=== PATIENT | female | born 1985 | race American Indian/Alaskan Native ===

== ENCOUNTER 2023-03-14 18:06 | Observation (INO) | payer OTHER, SELFPAY ==
[2023-03-14] VITALS (13 sets, daily range): BP systolic 139–160; BP diastolic 91–116; PULSE 84–107; RESP 16–28; TEMP 37.3; O2SAT 97–100; BMI 31.6
--- NOTE | ~2023-03-14 | CT_ITS ---
EXAMINATION: CT brain wo con DATE: 03/14/2023 19:22 INDICATION: Left arm weakness and tingling TECHNIQUE: Computed tomography (CT) of the head was performed without intravenous contrast. Sagittal and coronal reconstructions were performed. The mA was adjusted according to patient size. Iterative reconstruction technique was employed. The dose-length product was 605.33 mGy-cm. COMPARISON: None FINDINGS: No acute intracranial hemorrhage, acute infarction or abnormal extra axial fluid collection. Ventricl es are normal and symmetric. No mass/mass effect. The orbits, paranasal sinuses and mastoid air cells are normal. IMPRESSION: 1. Normal head CT. Reviewed, dictated and finalized at location A. IMPRESSION: 1. Normal head CT.
--- NOTE | ~2023-03-14 | XR_ITS ---
EXAMINATION: XR chest 2V DATE: 03/14/2023 18:53 INDICATION: Chest pressure and left arm numbness and weakness TECHNIQUE: PA and lateral views of the chest were obtained. COMPARISON: None FINDINGS: The lungs are clear with no focal airspace opacities, pulmonary edema, pleural effusion or pneumothor ax. The cardiomediastinal silhouette is normal. Minimal thoracic spondylosis. IMPRESSION: 1. No acute cardiopulmonary disease. Reviewed, dictated and finalized at location A.
--- NOTE | ~2023-03-14 | MR_ITS ---
EXAMINATION: MR brain/brain stem wo/w con DATE: 03/15/2023 08:03 INDICATION: tia TECHNIQUE: Magnetic resonance imaging (MRI) of the brain and brainstem was performed without and with 15 mL MultiHance intravenous contrast. Sequences included sagittal and axial T1-weighted SE, axial d iffusion-weighted FS EPI ASSET, axial T2*-weighted GRE, axial T2-weighted FLAIR Propeller, and axial T2-weighted Propeller. Postcontrast axial and coronal T1-weighted SE was obtained. Apparent diffusion coefficient (ADC) maps were created. COMPARISON: CT brain 03/14/2023 FINDINGS: No abnormal restricted diffusion to suggest acute ischemic infarct. No MRI evidence of hemorrhage or extra-axial collection. No suspicious foci of susceptibility to suggest prior intraparenchymal hemorr julio. Normal white matter signal. No evidence of advanced or lobar predominant parenchymal volume los s. The basilar cisterns are patent. Flow voids are preserved. Left maxillary retention cyst/polyp. Pa ranasal sinuses are otherwise within normal limits. Globes and orbital contents are within normal stover its. IMPRESSION: Normal MR brain findings Reviewed, dictated and finalized at location K. IMPRESSION: Normal MR brain findings
--- NOTE | 2023-03-14 18:11 | ECG_ITS ---
Measurements Intervals [place] Rate: 91 P: 14 MN: 132 QRS: 5 QRSD: 85 T: 17 QT: 348 QTc: 429 Interpretive Statements SINUS RHYTHM WITH MARKED SINUS ARRHYTHMIA POSSIBLE LEFT ATRIAL ENLARGEMENT POSSIBLE LEFT VENTRICULAR HYPERTROPHY BASELINE ARTIFACT- I, III, AVL BORDERLINE ECG NO PREVIOUS ECG AVAILABLE FOR COMPARISON Electronically Signed On 03-14-2023 19:43:03 CDT by Minor Iglesias D.O.
[2023-03-14 18:31] LABS: Basophils Percent Auto 0.2 % (0.2-1.2); Eosinophils Absolute Auto 0.1 K/mm3 (0-0.3); Hematocrit 38.7 % (37.0-47.0); Hemoglobin 12.7 g/dL (12.0-15.0); Immature Granulocyte Absolute 0.06 K/mm3 (0.00-0.031); Immature Granulocyte Percent A 0.4 % (0-0.5); Lymphocytes Absolute Auto 4.19 K/mm3 (0.9-3.2); Lymphocytes Percent Auto 30.2 % (18.3-44.2); Mean Corpuscular HGB Conc 32.8 g/dl (32-36); Mean Corpuscular Volume 94.4 fl (80-100); Mean Platelet Volume 9.8 fl (7.4-10.4); Monocytes Absolute Auto 0.9 K/mm3 (0.1-0.6); Monocytes Percent Auto 6.2 % (2.6-8.5); Neutrophils Absolute Auto 8.6 K/mm3 (1.3-6.7); Platelet Count Result 291 k/mm3 (150-375); Red Cell Distribution Width 11.9 % (11.5-14.5); White Blood Count 13.9 K/mm3 (4.5-10.0)
[2023-03-14 18:45] LABS: Alanine Aminotransferase 102 U/L (6-35); Albumin Level 4.8 g/dL (3.5-5.1); Alkaline Phosphatase 55 U/L (38-126); Anion Gap 13 mmol/L (8-16); Aspartate Amino Transferase 69 U/L (14-36); Bilirubin,Total 0.9 mg/dL (0.2-1.3); Blood Urea Nitrogen 19 mg/dL (7-17); Calcium 9.3 mg/dL (8.4-10.2); Carbon Dioxide 22 mmol/L (22-30); Chloride 103 mmol/L (98-107); Estimated CRCL calculation 80 ml/min; Estimated Glomerular Filt Rate > 60; Glucose 94 mg/dL (65-110); Lipase 62 U/L (23-300); Sodium 138 mmol/L (137-145)
[2023-03-14 18:55] LABS: Troponin I < 0.012 ng/mL (0.000-0.034)
--- NOTE | 2023-03-14 19:29 | PC.NURSE ---
This RN assumed care of patient. This RN took pt report from YOU Estrella.
[2023-03-14] MEDS: ASPIRIN 81 MG CHEWABLE TABLET 324 MG PO (19:33)
--- NOTE | 2023-03-14 20:21 | ED.CHESTPAIN ---
HPI - Chest Pain General Chief Complaint: Chest Pain Stated Complaint: SOB, arm tingling Time Seen by Provider: 03/14/23 18:52 History of Present Illness HPI narrative: Patient is a 37-year-old female who presents ER with left arm tingling. She was riding in her car shortly prior to arrival holding her 's hand when she felt her arm become numb and tingly. Her arm felt heavy and she had difficulty using it. She felt like became little bit worse when she did try to move it. She then became anxious and was having racing heart with central chest pressure. No slurred speech or facial droop. No history of heart disease but has a mother with significant heart history who ended up dying. Patient is on no hormone therapy. No fevers or chills or sweats. Symptoms resolved. Related Data Allergies Allergy/AdvReac Type Severity Reaction Status Date / Time acetaminophen [From Percocet] Allergy Hives Verified 03/14/23 18:13 oxycodone [From Percocet] Allergy Hives Verified 03/14/23 18:13 Review of Systems Review of Systems: All systems reviewed & are unremarkable except as noted in HPI and below Constitutional: Constitutional: Denies chills, Denies fatigue and Denies fever(s) ENT: Denies nasal congestion and Denies sore throat Cardiovascular: Cardiovascular: Denies chest pain, Reports rapid heart rate and Denies radiating jaw, neck or arm pain Respiratory: Respiratory: Denies cough, Reports dyspnea and Denies wheezing Gastrointestinal: Gastrointestinal: Denies abdominal pain, Denies diarrhea, Denies nausea and Denies vomiting Musculoskeletal: Musculoskeletal: Denies back pain, Denies arthralgias and Denies joint swelling Neurologic: Denies syncope, Denies headache(s) and Reports focal weakness PMFSH Past Medical History Medical History (Updated 03/14/23 @ 21:52 by Gokul Marcano MD) Anxiety PTSD (post-traumatic stress disorder) Surgical History Surgical History (Updated 03/14/23 @ 20:24 by Gokul Marcano MD) No pertinent past surgical history Exam Narrative: GENERAL: Well-appearing, well-nourished, and in no acute distress. HEAD: Normocephalic, atraumatic. EYES: PERRL and EOMI. ENT: Mucous membranes moist. CHEST: Clear to auscultation. No respiratory distress. HEART: Regular rate and rhythm. Normal peripheral pulses. ABDOMEN: Soft, nontender, nondistended. EXTREMITIES: Normal range of motion. No edema. SKIN: Warm, dry, no rash. NEURO: Alert and oriented x3. NIH stroke scale of 0. No upper or lower extremity drift. Normal finger-nose and [id number] testing. No visual deficit. No hearing deficit. Sensation intact in all extremities. No dysarthria or expressive aphasia. No facial droop. PSYCH: Mildly anxious but normal thought content. Course Course Emergency Course: 2134: Patient reported recurrence of symptoms. On reevaluation no discernible neurologic deficit and NIH stroke scale still 0. 2150: Discussed case with Dr. Vee who recommends admission for observation. No recommendation for repeat imaging at this time. Patient accepted by hospitalist service. Vital Signs Vital signs: Vital Signs Temperature 99.1 F 03/14/23 18:06 Pulse Rate 93 03/14/23 18:06 Respiratory Rate 28 H 03/14/23 18:06 Blood Pressure 160/116 H 03/14/23 18:06 Pulse Oximetry 100 03/14/23 18:06 Oxygen Delivery Room Air 03/14/23 18:06 Temperature 99.1 F 03/14/23 18:06 Pulse Rate 84 03/14/23 21:06 Respiratory Rate 17 03/14/23 21:06 Blood Pressure 139/91 H 03/14/23 18:31 Pulse Oximetry 100 03/14/23 19:34 Oxygen Delivery Room Air 03/14/23 19:34 MDM - Chest Pain Lab Data 03/14/23 18:22 03/14/23 18:22 Labs: Lab Results 03/14/23 03/14/23 03/14/23 Range/Units 18:22 18:23 21:34 WBC 13.9 H (4.5-10.0) K/mm3 RBC 4.10 L (4.2-5.4) M/mm3 Hgb 12.7 (12.0-15.0) g/dL Hct 38.7 (37.0-47.0) % MCV 94.4 (80-100) fl
[2023-03-14] MEDS: LORazepam INJ (*CRX) 2 MG/ML VIAL (21:31)
--- NOTE | 2023-03-14 21:45 | PC.NURSE ---
This RN administered 0.5 mg of Ativan per EDP Dr. Grace verbal order. THis RN used closed loop communication to confirm medication route, dose, and name with EDP Dr. Marcano.
--- NOTE | 2023-03-14 21:47 | PM.IMHP ---
H&P: HPI History of Present Illness Date/Time: 03/14/23 21:47 Chief Complaint: numbness tingling left hemibody Narrative: EXAMINATION: XR chest 2V DATE: 03/14/2023 18:53 INDICATION: Chest pressure and left arm numbness and weakness TECHNIQUE: PA and lateral views of the chest were obtained. COMPARISON: None FINDINGS: The lungs are clear with no focal airspace opacities, pulmonary edema, pleural effusion or pneumothorax. The cardiomediastinal silhouette is normal. Minimal thoracic spondylosis. IMPRESSION: 1. No acute cardiopulmonary disease. EXAMINATION: CT brain wo con DATE: 03/14/2023 19:22 INDICATION: Left arm weakness and tingling TECHNIQUE: Computed tomography (CT) of the head was performed without intravenous contrast. Sagittal and coronal reconstructions were performed. The mA was adjusted according to patient size. Iterative reconstruction technique was employed. The dose-length product was 605.33 mGy-cm. COMPARISON: None FINDINGS: No acute intracranial hemorrhage, acute infarction or abnormal extra axial fluid collection. Ventricles are normal and symmetric. No mass/mass effect. The orbits, paranasal sinuses and mastoid air cells are normal. IMPRESSION: 1. Normal head CT. Rate 91 NC 132 QRSd 85 QT 348 QTc 429 --[place]-- P 14 QRS 5 T 17 SINUS RHYTHM WITH MARKED SINUS ARRHYTHMIA POSSIBLE LEFT ATRIAL ENLARGEMENT POSSIBLE LEFT VENTRICULAR HYPERTROPHY BASELINE ARTIFACT- I, III, AVL BORDERLINE ECG NO PREVIOUS ECG AVAILABLE FOR COMPARISON Electronically Signed On 03-14-2023 19:43:03 CDT by Minor Harry Review of Systems Review of Systems: sudden onset of numbness tingling left hemibody with hyperventilation Constitutional: Constitutional: Denies chills, Denies fatigue, Denies fever(s), Denies lethargy, Denies malaise, Denies poor appetite, Denies weakness and Denies weight loss Eyes: Eyes: Denies change in vision ENT: Denies dysphagia, Denies vertigo, Denies dizziness and Denies odynophagia Cardiovascular: Cardiovascular: Denies chest pain, Denies leg edema, Denies radiating jaw, neck or arm pain and Denies palpitations Respiratory: Respiratory: Denies chest congestion, Denies cough and Denies dyspnea Gastrointestinal: Gastrointestinal: Denies abdominal pain, Denies dyspepsia, Denies heartburn, Denies diarrhea, Denies nausea and Denies vomiting Genitourinary: Genitourinary: Denies dysuria Musculoskeletal: Musculoskeletal: Denies back pain, Denies myalgias, Denies arthralgias, Denies joint swelling, Denies limited range of motion and Denies muscle cramps Integumentary/Breasts: Skin/Breast: Denies rash Neurologic: Denies dizziness, Denies focal weakness, Denies Sensory deficit (Neuro) and Reports paresthesias Psychiatric: Psychiatric: Reports no additional psychiatric complaints and Reports as per HPI Endocrine: Endocrine: Denies cold intolerance, Denies fatigue, Denies flushing, Denies heat intolerance, Denies polyphagia, Denies polydipsia and Denies palpitations Hematologic/Lymphatic: Hematologic/Lymphatic: Reports no additional hematologic/lymphatic complaints and Reports as per HPI Allergic/Immunologic: Allergic/Immunologic: Reports no additional allergic/immunologic complaints and Reports as per HPI PMFSH Past Medical History Medical History (Updated 03/15/23 @ 03:31 by Gilberto Olson MD) Anxiety PTSD (post-traumatic stress disorder) Surgical History Surgical History (Updated 03/14/23 @ 20:24 by Gokul Marcano MD) No pertinent past surgical history Family History Family History Mother Acute myocardial infarction Congestive heart failure Grandparent Acute myocardial infarction Cerebrovascular accident Diabetes mellitus Hypertension Sibling Hypertension Social History Social History Smoking status: Former smoker Alcohol intake: never Substance use: never Lack of Transportation: No Lack of Food: Never True Current Housing: I Have Hous
[2023-03-14 22:01] LABS: Troponin I < 0.012 ng/mL (0.000-0.034)
--- NOTE | 2023-03-14 22:48 | ADMGEN ---
This patient, Angy Orourke, was admitted to Medical Room 346-. Patient/family oriented to hospital policies and general routines including ID bracelet, bed and alarms, visiting hours, pain management, procedures, bathroom and other care routines, personal items, smoking policy, room service/diet, and visiting hours. Information on how to activate the Rapid Response Team has been discussed. Patient/Family are encouraged to report perceived risks to care and to ask questions if they do not understand what they are told or what they should do.
[2023-03-15] VITALS (9 sets, daily range): BP systolic 103–129; BP diastolic 55–82; PULSE 68–88; RESP 16–18; TEMP 36.4–36.8; O2SAT 98–100
[2023-03-15 01:11] LABS: Troponin I < 0.012 ng/mL (0.000-0.034)
--- NOTE | 2023-03-15 07:46 | PC.NURSE ---
Pt to MRI @ [id number] without tele
--- NOTE | 2023-03-15 12:47 | WPDNEURCNPN ---
Assessment and Plan Assessment and plan (1) Hypertension: Code(s): I10 - Essential (primary) hypertension Status: Acute (2) TIA (transient ischemic attack): Code(s): G45.9 - Transient cerebral ischemic attack, unspecified Status: Acute (3) Anxiety: Code(s): F41.9 - Anxiety disorder, unspecified Status: Acute Plan TIA MRI thus brain is awaited she will benefit from the Doppler study of the carotid and echocardiogram in the long run Consult date: 03/15/23 HPI: Angy Orourke is a 37 year old female 37 years old right-handed female has been admitted to [facility] through the emergency room for the complaints of left upper extremity tingling sensation while riding in her car shortly prior to the arrival subsequently the left arm became numb and felt heavy in addition became difficult to use he was extremely anxious with tachycardia and chest pressure-like sensation but no other neurological signs patient is reportedly allergic to acetaminophen and oxycodone , she does have ongoing history of anxiety with posttraumatic stress disorder and initial exam i in ER was nonfocal he was mainly admitted to the hospital for observation after the telephone neurology consultation. Routine lab was normal, CT scan of the head was negative, EKG was negative with no evidence of atrial fibrillation, question was raised regarding the possibility IA and she was admitted for observation, MRI is pending, she is a former smoker never substance user and never alcohol intake medications at the time of admission include atorvastatin 20 mg at night and lisinopril 20 mg at night. [facility] Past Medical History Medical History Anxiety PTSD (post-traumatic stress disorder) Surgical History Surgical History No pertinent past surgical history Family History Family History Mother Acute myocardial infarction Congestive heart failure Grandparent Acute myocardial infarction Cerebrovascular accident Diabetes mellitus Hypertension Sibling Hypertension Social History Social History Smoking status: Former smoker Alcohol intake: never Substance use: never Lack of Transportation: No Lack of Food: Never True Current Housing: I Have Housing Concerned About Future Housing: No Difficulty Paying Gas/Electric Bills: No Difficulty Paying for Meds: No Currently Unemployed: No Education: Associate Degree Difficulty w/ Childcare or Family Care: No Spiritual care concerns: No Meds Home Medications and Allergies Home Medications Medication Instructions Recorded Confirmed Type atorvastatin 20 mg tablet 20 mg PO 03/14/23 03/14/23 History lisinopril 20 mg tablet 20 mg PO 03/14/23 03/14/23 History Allergies Allergy/AdvReac Type Severity Reaction Status Date / Time oxycodone [From Percocet] Allergy Hives Verified 03/14/23 18:13 Vital Signs Vital Signs - 24 hr 03/14/23 18:06 03/14/23 19:34 03/14/23 18:10 Temperature 37.3 C Pulse Rate 93 94 Respiratory Rate 28 H 17 Blood Pressure 160/116 H Pulse Oximetry 100 100 100 Oxygen Delivery Room Air Room Air 03/14/23 18:11 03/14/23 18:21 03/14/23 18:30 Temperature Pulse Rate 107 H 96 94 Respiratory Rate 19 20 17 Blood Pressure 160/116 H Pulse Oximetry 100 100 97 Oxygen Delivery 03/14/23 18:31 03/14/23 18:47 03/14/23 19:23 Temperature Pulse Rate 95 96 89 Respiratory Rate 19 19 17 Blood Pressure 139/91 H Pulse Oximetry 98 98 99 Oxygen Delivery 03/14/23 19:30 03/14/23 20:24 03/14/23 20:34 Temperature Pulse Rate 92 90 88 Respiratory Rate 19 18 16 Blood Pressure Pulse Oximetry 97 Oxygen Delivery 03/14/23 21:06 03/14/23 23:00 03/15/23 00:22 Temperature 36.6 C Pulse Rate 8
--- NOTE | 2023-03-15 12:49 | PM.IMPN ---
Progress Note: A&P Assessment and Plan (1) TIA (transient ischemic attack): Code(s): G45.9 - Transient cerebral ischemic attack, unspecified Status: Acute Assessment and Plan: MRI negative, echo and Dopplers pending (2) Hypertension: Code(s): I10 - Essential (primary) hypertension Status: Acute Assessment and Plan: Blood pressures reviewed 03/15 (3) Anxiety: Code(s): F41.9 - Anxiety disorder, unspecified Status: Acute Assessment and Plan: follow-up in outpatient setting Plan DVT prophylaxis with SCDs GI prophylaxis not indicated Code status full code Subjective Date/time seen: 03/15/23 12:49 Interval history: 37-year-old female presenting with numbness and tingling of one side of her body being worked up for possible TIA. No overnight events noted. No chest pain or shortness of breath. No nausea, vomiting or diarrhea. No fevers or chills. Review of Systems Review of Systems: 12 point review of systems was assessed and was negative except as noted in the HPI Exam Narrative: General: No acute distress, alert and oriented per baseline HEENT: Atraumatic, normocephalic, mucous membranes moist CV: Regular rate and rhythm, S1, S2 Lungs: Clear to auscultation bilaterally, no rales or crackles noted, no wheezes, good air entry Abdomen: Soft, nontender, nondistended Extremities: Normal to inspection Skin: No rashes noted, no lesions or wounds seen Psych: Euthymic, normal affect Objective Data Vital Signs Vital Signs: Vital Signs - 24 hr 03/14/23 18:06 03/14/23 19:34 03/14/23 18:10 Temperature 99.1 F Pulse Rate 93 94 Respiratory Rate 28 H 17 Blood Pressure 160/116 H Pulse Oximetry 100 100 100 Oxygen Delivery Room Air Room Air 03/14/23 18:11 03/14/23 18:21 03/14/23 18:30 Temperature Pulse Rate 107 H 96 94 Respiratory Rate 19 20 17 Blood Pressure 160/116 H Pulse Oximetry 100 100 97 Oxygen Delivery 03/14/23 18:31 03/14/23 18:47 03/14/23 19:23 Temperature Pulse Rate 95 96 89 Respiratory Rate 19 19 17 Blood Pressure 139/91 H Pulse Oximetry 98 98 99 Oxygen Delivery 03/14/23 19:30 03/14/23 20:24 03/14/23 20:34 Temperature Pulse Rate 92 90 88 Respiratory Rate 19 18 16 Blood Pressure Pulse Oximetry 97 Oxygen Delivery 03/14/23 21:06 03/14/23 23:00 03/15/23 00:22 Temperature 97.9 F Pulse Rate 84 78 Respiratory Rate 17 18 Blood Pressure 108/55 L Pulse Oximetry 98 Oxygen Delivery Room Air 03/15/23 00:00 03/15/23 04:00 03/15/23 05:12 Temperature 98.3 F Pulse Rate 88 73 76 Respiratory Rate 16 Blood Pressure 103/73 Pulse Oximetry 100 Oxygen Delivery Intake/Output Intake/Output: Intake & Output 03/12/23 03/13/23 03/14/23 03/15/23 23:59 23:59 23:59 23:59 Intake Total 590 Balance 590 Meds/Results Medications: Active Medications Generic Name Dose Route Start Last Admin Trade Name Freq PRN Reason Stop Dose Admin Atorvastatin Calcium 20 mg 03/15/23 03:35 03/15/23 04:20 Atorvastatin 20 Mg Tablet PO Not Given HS DENG Lisinopril 20 mg 03/15/23 03:35 03/15/23 04:20 Lisinopril 20 Mg Tablet PO Not Given HS DENG Ondansetron HCl 4 mg 03/14/23 21:48 Ondansetron Inj 4 Mg/2 Ml Vial IV PUSH Q4H PRN Nausea Radiology Results: ITS Impressions Chest X-Ray 03/14/23 19:08 IMPRESSION: 1. No acute cardiopulmonary disease. Head CT 03/14/23 19:24 IMPRESSION: 1. Normal head CT. Labs Labs: Laboratory Results - last 24 hr 03/14/23 03/14/23 03/14/23 18:22 18:23 21:34 WBC 13.9 H RBC 4.10 L Hgb 12.7 Hct 38.7 MCV 94.4 MCH 31.0 MCHC 32.8 RDW 11.9 Plt Count 291 MPV 9.8 Immature Gran % (Auto) 0.4 Neut % (Auto) 62.0 Lymph % (Auto) 30.2 Yates % (Auto) 6.2 Eos % (Auto) 1.0 Baso % (Auto) 0.2 Lymph # (Auto) 4.19 H
[2023-03-15] MEDS: lisinopriL 20 MG TABLET PO (21:23)
[2023-03-15] MEDS: ATORVASTATIN 20 MG TABLET PO (21:23)
[2023-03-16] VITALS: PULSE 72
[2023-03-16 04:00] VITALS: PULSE 68
[2023-03-16 04:09] VITALS: BP 109/67; PULSE 73; RESP 16; TEMP 36.1; O2SAT 99
[2023-03-16 08:42] VITALS: O2SAT 98
--- NOTE | 2023-03-16 09:47 | PM.IMPN ---
Progress Note: A&P Assessment and Plan (1) TIA (transient ischemic attack): Code(s): G45.9 - Transient cerebral ischemic attack, unspecified Status: Acute Assessment and Plan: MRI negative, echo and Dopplers pending, neuro consult recs after results (2) Hypertension: Code(s): I10 - Essential (primary) hypertension Status: Acute Assessment and Plan: Blood pressures reviewed 03/16 (3) Anxiety: Code(s): F41.9 - Anxiety disorder, unspecified Status: Acute Assessment and Plan: follow-up in outpatient setting Plan DVT prophylaxis with SCDs GI prophylaxis not indicated Code status full code Subjective Date/time seen: 03/16/23 09:47 Interval history: 37-year-old female presenting with numbness and tingling of one side of her body being worked up for possible TIA. No overnight events noted. No chest pain or shortness of breath. No nausea, vomiting or diarrhea. No fevers or chills. Review of Systems Review of Systems: 12 point review of systems was assessed and was negative except as noted in the HPI Exam Narrative: General: No acute distress, alert and oriented per baseline HEENT: Atraumatic, normocephalic, mucous membranes moist CV: Regular rate and rhythm, S1, S2 Lungs: Clear to auscultation bilaterally, no rales or crackles noted, no wheezes, good air entry Abdomen: Soft, nontender, nondistended Extremities: Normal to inspection Skin: No rashes noted, no lesions or wounds seen Psych: Euthymic, normal affect Objective Data Vital Signs Vital Signs: Vital Signs - 24 hr 03/15/23 14:00 03/15/23 12:00 03/15/23 16:00 Temperature 98.1 F Pulse Rate 72 75 82 Respiratory Rate 16 Blood Pressure 124/81 Pulse Oximetry 100 Oxygen Delivery 03/15/23 21:16 03/15/23 20:00 03/16/23 00:00 Temperature 97.6 F Pulse Rate 84 68 72 Respiratory Rate 16 Blood Pressure 129/82 Pulse Oximetry 100 Oxygen Delivery 03/16/23 04:09 03/16/23 04:00 03/16/23 08:42 Temperature 97 F L Pulse Rate 73 68 Respiratory Rate 16 Blood Pressure 109/67 Pulse Oximetry 99 98 Oxygen Delivery Room Air Intake/Output Intake/Output: Intake & Output 0903/14/23 03/15/23 03/16/23 23:59 23:59 23:59 23:59 Intake Total 1570 150 Balance 1570 150 Meds/Results Medications: Active Medications Generic Name Dose Route Start Last Admin Trade Name Freq PRN Reason Stop Dose Admin Atorvastatin Calcium 20 mg 03/15/23 03:35 03/15/23 21:23 Atorvastatin 20 Mg Tablet PO 20 mg HS DENG Administration Lisinopril 20 mg 03/15/23 03:35 03/15/23 21:23 Lisinopril 20 Mg Tablet PO 20 mg HS DENG Administration Ondansetron HCl 4 mg 03/14/23 21:48 Ondansetron Inj 4 Mg/2 Ml Vial IV PUSH Q4H PRN Nausea Perflutren Lipid Microsphere 0 ml 03/15/23 16:45 Perflutren Lipid Microspheres 1.5 Ml Vial Diluted To 10 Ml Total Volume IV PUSH 03/18/23 16:45 ONCE PRN adequate visualization Protocol Radiology Results: ITS Impressions Chest X-Ray 03/14/23 19:08 IMPRESSION: 1. No acute cardiopulmonary disease. Head CT 03/14/23 19:24 IMPRESSION: 1. Normal head CT. Brain MRI 03/15/23 14:35 IMPRESSION: Normal MR brain findings
--- NOTE | 2023-03-16 11:32 | P.DS_ITS ---
DS: Admitting Diagnosis Discharge Date 03/16/2023 Admitting Diagnosis Right-sided numbness and tingling DS: Summary Hospital Course Hospital Course: 37-year-old female presenting with numbness and tingling of one side of her body being worked up for possible TIA. MRI completely normal. Carotid ultrasound results below. IMPRESSION: 1. Less than 50% stenosis in the right internal carotid artery by sonographic criteria. 2. Less than 50% stenosis in the left internal carotid artery by sonographic criteria. All workup negative. All symptoms resolved. neurology recommended discharge with outpatient follow-up. Please see above and med rec for details. Time Spent with Patient Time attestation: Total time spent providing and/or coordinating discharge services: Discharge Plan Discharge Attending physician on discharge: Hansa Markham Consulting providers: Willem Anna; Mauri Willis; Minor Iglesias; Jorge Neves; Jorge Crow Discharging Clinician: Hansa Markham Patient Disposition: Home, Self-Care Activity: as tolerated Diet: as tolerated Discharge Instructions: Follow up with echo and bubble study, carotid US and neurology. Patient Instructions: Antibiotic Form, Transient Ischemic Attack (GEN) Stand Alone Forms: General Discharge Information Follow-up/Referrals: Willem Anna MD [Physician] - Jody Vee MD [Physician] - Discharge Medications: New aspirin 81 mg capsule 81 mg PO DAILY 30 Days Qty: 30 0RF Continued lisinopril 20 mg Tablet 20 mg PO HS No Action Zylet 0.3-0.5 % drops,suspension EACH EYE fluoxetine 10 mg capsule 10 mg PO DAILY Qty: 30 0RF atorvastatin 40 mg tablet 40 mg PO QHS Qty: 90 3RF Date of admission: 03/14/23 21:48 Primary Care Provider: PHYSICIAN,FPGA DESIGN ENGINEER Admitting Provider: Gilberto Olson V. Attending physician on admission: Hansa Markham Condition: Stable
[2023-03-16 12:00] VITALS: PULSE 76
--- NOTE | 2023-03-16 13:38 | PC.NURSE ---
Construction Teacher spoke with Dr Willis by phone, ok to discharge patient and follow outpatient.
== END 2023-03-16 13:30 | disposition home or self-care (01) ==
LOC: ANHED 21:52 → ANH3MED 22:19
PROVIDERS: Admitting Provider Internal Medicine; Emergency Provider Emergency Medicine; Visit Provider Student in an Organized Health Care Education/Training Program
DX: G45.9 Transient cerebral ischemic attack, unspecified (principal); I10 Essential (primary) hypertension; F41.9 Anxiety disorder, unspecified; F43.10 Post-traumatic stress disorder, unspecified; R07.89 Other chest pain; Z87.891 Personal history of nicotine dependence; Z82.49 Family history of ischemic heart disease and other diseases of the circulatory system; Z79.899 Other long term (current) drug therapy
CPT/HCPCS: 36415; 70450; 70553; 71046; 80053; 83690; 84484; 85025; 85610; 85730; 93005; 99285; A9270; A9577; G0378; J2060

== ENCOUNTER → 2023-03-26 09:37 | Outpatient (CLI) | payer OTHER, SELFPAY ==
--- NOTE | ~2023-03-26 | US_ITS ---
EXAMINATION: US carotid duplex BI DATE: 03/26/2023 10:22 INDICATION: TIA TECHNIQUE: Grayscale, color Doppler, and pulsed Doppler images of the cervical carotid arteries were obtained. The degree of vessel stenosis is placed in one of the following categories: normal, <50%, 5 0-69%, >=70% but less than near-occlusion, near-occlusion, or total occlusion. Note that percent sten osis relative to normal distal artery lumen diameter is indirectly measured from velocity measurement s as described by Devyn, et al. Radiology 2003; 229:340-346. Notes: Normal: Peak systolic velocity <125 centimeters/sec and no plaque <50%. Peak systolic velocity <125 ( EDV <40; ICA/CCA PSV ratio <2.0; used these factors only a tandem lesions or low cardiac output or co ntralateral disease) 50-69 %: PSV 125-230 (EDV 40-100; ratio 2-4) >= 70% but less than near occlusion: PSV greater than 230 (EDV > 100; ratio> 4.0) Near Occlusion: PSV that is variable; markedly narrowed lumen Occlusion: Absent flow on color/spectral Doppler and no lumen on flynn scale. COMPARISON: None. FINDINGS: RIGHT: The right common carotid artery (CCA) peak systolic velocity (PSV) is 100 cm/s. The right internal ca rotid artery (ICA) PSV is 124 cm/s. The right ICA end-diastolic velocity (EDV) is 45 cm/s. The right ICA/CCA PSV ratio is 1.4. The external carotid artery (ECA) PSV is 82 cm/s. There is antegrade flow i n the right vertebral artery. LEFT: The left CCA PSV is 108 cm/s. The left ICA PSV is 110 cm/s. The left ICA EDV is 37 cm/s. The left ICA /CCA PSV ratio is 1.6. The ECA PSV is 68 cm/s. There is antegrade flow in the left vertebral artery. IMPRESSION: 1. Less than 50% stenosis in the right internal carotid artery by sonographic criteria. 2. Less than 50% stenosis in the left internal carotid artery by sonographic criteria. Reviewed, dictated and finalized at location A. IMPRESSION: 1. Less than 50% stenosis in the right internal carotid artery by sonographic anjali guillory. 2. Less than 50% stenosis in the left internal carotid artery by sonographic amador nash.
--- NOTE | ~2023-03-26 | US_ITS ---
Abdominal Sonogram: Real-time sonographic imaging of the abdomen was performed. Clinical History: Abnormal serum enzyme levels Findings: The liver appears normal with no evidence of mass lesion or bile duct dilatation. Main por ruben vein demonstrates normal direction of flow. The spleen is normal in size without evidence of foca l lesion. The gallbladder is well distended, without visible gallstone. Small gallbladder wall polyp s are present, largest measuring 5 mm. The common bile duct measures 4 mm. The visualized pancreas, aorta, and IVC are unremarkable. The right kidney measures 8.8 cm in length and the left kidney jovita ures 10.3 cm. There is no hydronephrosis or renal calculus. Impression: Small gallbladder wall polyps, as detailed above. Reviewed, dictated and finalized at location M. Impression: Small gallbladder wall polyps, as detailed above.
== END ==
PROVIDERS: PCP Nurse Practitioner Family; Visit Provider Nurse Practitioner Family
DX: R74.8 Abnormal levels of other serum enzymes (principal); E78.5 Hyperlipidemia, unspecified; G45.9 Transient cerebral ischemic attack, unspecified
CPT/HCPCS: 76700; 93880

== ENCOUNTER 2023-04-29 15:32 | Outpatient (CLI) | payer OTHER, SELFPAY ==
--- NOTE | 2023-04-29 15:40 | ECHO_ITS ---
Patient Info Name: Angy Orourke Age: 37 years : 1985 Gender: Female Ht: 62 in Wt: 173 lbs BSA: 1.88 m2 HR: 96 bpm BP: 123 / 96 mmHg Heart Rhythm: Sinus Rhythm Technical Quality: Good Exam Date: 04/29/2023 4:23 PM Exam Location: [facility] Card Pulmonary Patient Status: Outpatient Admit Date: 04/29/2023 Staff Ordering Physician: Mary Telles Supervisor Nuclear Medicine: Elizabeth Shah RDCS Attending Provider: Mary Telles Referring Physician: Elfego ARANGO; Exam Type: CA echo doppler color flow Study Info Indications - Hyperlipidema, unsp Complete two-dimensional, color flow and Doppler transthoracic echocardiogram is performed. Summary 1. Complete two-dimensional, color flow and Doppler transthoracic echocardiogram is performed. 2. Normal left ventricular size with borderline concentric hypertrophy. Good systolic function of all segments with ejection fraction 63%. Borderline criteria for diastolic dysfunction is present. 3. No significant valve disease. 4. No pulmonary hypertension, estimated pulmonary arterial systolic pressure is 26 mmHg. 5. Normal sinus rhythm. Left Ventricle Left ventricular chamber dimension is normal. Left ventricular systolic function is normal, estimated at Empty. There is mildly increased left ventricular wall thickness. Left ventricular septal wall motion is normal. The left ventricular diastolic function is abnormal. Right Ventricle Right ventricular chamber dimension is normal. Right ventricular systolic function is normal. Left Atria Left atrial chamber dimension is normal. Right Atria Right atrial chamber dimension is normal. Aortic Valve The aortic valve is trileaflet. There is no aortic valve sclerosis. There is no aortic valve stenosis. There is no aortic valve regurgitation. Pulmonic Valve The pulmonic valve is normal. There is no pulmonic valve stenosis. There is no pulmonic regurgitation. Mitral Valve The mitral valve has normal leaflets. There is no mitral valve stenosis. There is no mitral valve regurgitation. Tricuspid Valve The tricuspid valve leaflets are normal. There is no significant tricuspid valve stenosis. There is trace tricuspid valve regurgitation. No pulmonary hypertension, estimated pulmonary arterial systolic pressure is 26 mmHg. Pericardium/Pleural The pericardium appears normal. There is no pericardial effusion. Inferior Vena Cava Normal inferior vena cava with >50% collapse upon inspiration consistent with Empty right atrial pressure, 10 mmHg. Aorta The aortic root size at the sinus of Valsalva is normal. The prox ascending aorta size is normal. Left Ventricular Outflow Tract Name Value Normal LVOT 2D LVOT Diameter 1.9 cm LVOT Doppler LVOT Peak Gradient 2 mmHg LVOT Mean Gradient 2 mmHg LVOT VTI 16 cm LVOT VTI/AV VTI Ratio 0.7 LVOT Stroke Volume 47 ml LVOT CO 3.6 l/min LVOT CI 1.9 l/min/m2 Pulmonic Valve
== END 2023-04-29 15:33 | disposition home or self-care (01) ==
LOC: ANHCARD 15:33
PROVIDERS: PCP Nurse Practitioner Family; Visit Provider Nurse Practitioner Family
DX: E78.5 Hyperlipidemia, unspecified (principal); G45.9 Transient cerebral ischemic attack, unspecified; I10 Essential (primary) hypertension
CPT/HCPCS: 93306

== ENCOUNTER 2023-09-22 14:46 | Outpatient (CLI) | payer OTHER, SELFPAY ==
[2023-09-22 20:47] LABS: Alanine Aminotransferase 185 U/L (6-35); Alkaline Phosphatase 52 U/L (38-126); Amylase 103 U/L (30-110); Aspartate Amino Transferase 108 U/L (14-36); Bilirubin,Total 0.6 mg/dL (0.2-1.3); Blood Urea Nitrogen 22 mg/dL (7-17); Calcium 9.9 mg/dL (8.4-10.2); Carbon Dioxide 29 mmol/L (22-30); Chloride 102 mmol/L (98-107); Estimated Glomerular Filt Rate > 60; Glucose 102 mg/dL (65-110); Lipase 77 U/L (23-300)
[2023-09-22 23:17] LABS: Anion Gap 6 mmol/L (8-16); Sodium 137 mmol/L (137-145)
[2023-09-23 02:00] LABS: Albumin Level 4.4 g/dL (3.5-5.1)
== END 2023-09-22 14:47 | disposition home or self-care (01) ==
LOC: ANHGOSHLAB 14:47
PROVIDERS: PCP Nurse Practitioner Family; Visit Provider Nurse Practitioner Family
DX: R10.9 Unspecified abdominal pain (principal)
CPT/HCPCS: 36415; 80053; 82150; 83690

== ENCOUNTER 2023-10-04 07:32 | Outpatient (CLI) | payer OTHER, SELFPAY ==
--- NOTE | ~2023-10-04 | US_ITS ---
EXAMINATION: US abdomen complete DATE: 10/04/2023 08:56 INDICATION: Unspecified abdominal pain. TECHNIQUE: Multiple grayscale and Doppler ultrasound images of the abdomen were obtained. COMPARISON: Ultrasound 03/26/2023 FINDINGS: The visualized portions of the head, body, and tail of the pancreas are normal. The liver i s normal without focal lesion. There is normal flow in main portal vein. The gallbladder is normal in size. No gallstones or gallbladder wall thickening. There is no sonographic Orozco sign. The common duct is normal and measures 3 mm. Abdominal aorta is normal in caliber. Inferior vena cava is normal. The spleen is normal in size. The kidneys are normal in size. IMPRESSION: 1. Normal complete abdomen ultrasound. Reviewed, dictated and finalized at location A.
== END 2023-10-04 07:33 | disposition home or self-care (01) ==
PROVIDERS: PCP Nurse Practitioner Family; Visit Provider Nurse Practitioner Family
DX: R10.9 Unspecified abdominal pain (principal)
CPT/HCPCS: 76700

== ENCOUNTER 2024-01-12 15:33 | Outpatient (CLI) | payer OTHER, SELFPAY ==
--- NOTE | ~2024-01-12 | XR_ITS ---
EXAMINATION: XR foot RT min 3V DATE: 01/12/2024 15:44 INDICATION: Right foot pain. TECHNIQUE: 4 views of right foot were obtained. COMPARISON: None. FINDINGS: There is moderate hallux valgus. No fracture. There is mild osteoarthritis of first metatar sophalangeal joint. IMPRESSION: 1. Moderate hallux valgus. 2. Mild osteoarthritis of first metatarsophalangeal joint. Reviewed, dictated and finalized at location E.
== END 2024-01-12 15:34 ==
LOC: MICIMG 15:34
PROVIDERS: PCP Nurse Practitioner Family; Visit Provider Nurse Practitioner Family
DX: M19.071 Primary osteoarthritis, right ankle and foot (principal); M20.11 Hallux valgus (acquired), right foot
CPT/HCPCS: 73630

== ENCOUNTER 2024-05-05 09:22 | Outpatient (CLI) | payer OTHER, SELFPAY ==
[2024-05-05 12:49] LABS: Basophils Percent Auto 0.5 % (0.2-1.2); Eosinophils Absolute Auto 0.4 K/mm3 (0-0.3); Eosinophils Percent Auto 4.4 % (0-4.4); Hematocrit 41.9 % (37.0-47.0); Hemoglobin 13.4 g/dL (12.0-15.0); Immature Granulocyte Absolute 0.04 K/mm3 (0.00-0.031); Immature Granulocyte Percent A 0.5 % (0-0.5); Lymphocytes Absolute Auto 3.26 K/mm3 (0.9-3.2); Mean Corpuscular Hemoglobin 29.7 pg (26-34); Mean Corpuscular Volume 92.9 fl (80-100); Mean Platelet Volume 9.8 fl (7.4-10.4); Monocytes Absolute Auto 0.6 K/mm3 (0.1-0.6); Monocytes Percent Auto 6.9 % (2.6-8.5); Neutrophils Absolute Auto 3.7 K/mm3 (1.3-6.7); Neutrophils Percent Auto 46.7 % (45.5-73.1); Platelet Count Result 308 k/mm3 (150-375); Red Blood Count 4.51 M/mm3 (4.2-5.4); Red Cell Distribution Width 11.5 % (11.5-14.5)
[2024-05-05 13:17] LABS: Vitamin D 25 Hydroxy 36.4 ng/mL
[2024-05-05 13:31] LABS: Thyroid Stimulating Hormone Reflex 0.826 uIU/mL (0.465-4.68)
[2024-05-05 13:43] LABS: LDL Cholesterol Direct 206 mg/dL
[2024-05-05 13:51] LABS: Alanine Aminotransferase 91 U/L (6-35); Albumin Level 4.5 g/dL (3.5-5.1); Alkaline Phosphatase 83 U/L (38-126); Anion Gap 8 mmol/L (4-12); Aspartate Amino Transferase 49 U/L (14-36); Bilirubin,Total 0.6 mg/dL (0.2-1.3); Blood Urea Nitrogen 17 mg/dL (7-17); Calcium 9.4 mg/dL (8.4-10.2); Carbon Dioxide 28 mmol/L (22-30); Chloride 100 mmol/L (98-107); Estimated Glomerular Filt Rate > 60; Glucose 105 mg/dL (65-110); HDL Direct 58 mg/dL; Potassium 4.2 mmol/L (3.4-5.0); Sodium 136 mmol/L (137-145); Triglycerides 284 mg/dL (<150)
[2024-05-05 13:55] LABS: Cholesterol 382 mg/dL (0-200)
== END 2024-05-05 09:23 | disposition home or self-care (01) ==
LOC: ANHGOSHLAB 09:24
PROVIDERS: PCP Family Medicine; Visit Provider Nurse Practitioner Family
DX: E66.9 Obesity, unspecified (principal); E78.5 Hyperlipidemia, unspecified; G45.9 Transient cerebral ischemic attack, unspecified; I10 Essential (primary) hypertension; K21.9 Gastro-esophageal reflux disease without esophagitis; E55.9 Vitamin D deficiency, unspecified
CPT/HCPCS: 36415; 80053; 80061; 82306; 84443; 85025

== ENCOUNTER 2024-08-12 00:51 | Day surgery (SDC) | payer OTHER, SELFPAY ==
[2024-07-29 14:50] VITALS: BMI 31.6
--- OUTSIDE RECORDS SUMMARY | 2024-08-12 00:53 | XMS_ITS | Referral Summary ---
Author Organization [facility] [address] [facility] [address] Address [address] [place] [address] Care Team Providers Care Quarantine Officer Name Role Phone Mary Telles NP Primary Care Provider [phone] Crala Nayak DPM Unavailable [phone] Encounters Date Type Department Care Team Description 08/01/2024 6:31 PM SPEEDBOAT DRIVER - 08/01/2024 7:49 PM RUST Emergency [facility] Emergency Department [address] [place], [place] [id number] Influenza A (Primary Dx) Discharge Disposition: Discharge to home or self care from Last 3 Months Allergies Active Allergy Reactions Criticality Noted Date Comments Oxycodone Rash Medium 03/24/2024 Medications lisinopriL (PRINIVIL,ZESTRIL) 20 mg tablet Take 1 tablet (20 mg total) by mouth nightly at bedtime. 4 Active gabapentin (NEURONTIN) 100 mg capsule Take 1 capsule (100 mg total) by mouth nightly 4 Active multivit-min/iron fum/folic ac (ONE-A-DAY WOMEN'S COMPLETE ORAL) Take 1 each by mouth daily Active omega-3 fatty acids-fish oil 300-1,000 mg capsule Take 1 capsule (1 g total) by mouth daily Active MAGNESIUM GLYCINATE ORAL Take 400 mg by mouth daily Active protein powder Take by mouth daily Active creatinine, bulk, 100 % powder Active amino acids capsule Take by mouth Active HYDROcodone-acetami nophen (NORCO) 5-325 mg per tabletIndications:P ain Take 1 tablet by mouth every 4 (four) hours as needed for pain 40 tablet 4 Active ondansetron ODT (ZOFRAN-ODT) 8 mg disintegrating tablet Take 1 tablet (8 mg total) by mouth every 8 (eight) hours as needed for nausea or vomiting 20 tablet 4 Active Active Problems Problem Noted Date Diagnosed Date Bunion of great toe of right foot 03/23/2024 Acquired hallux valgus of right foot 03/23/2024 Social History Tobacco Use Types Packs/Day Years Used Date Smoking Tobacco: Former Cigarettes Smokeless Tobacco: Never Tobacco Cessation:Counseling Given: Not Answered AUDIT-C Answer Date Recorded Q1: How often do you have a drink containing alc ohol? 2-4 times a month 03/24/2024 Q2: How many drinks containi ng alcohol do you have on a typical day when you are drinking? 1 or 2 03/24/2024 Frequency of Binge Drinking Not on file 03/07 Personal Safety Answer Date Recorded Have you ever been in or are you currently in a harmful physical or emotional relationship or is someone making you feel afraid or unsafe? Denies 08/01/2024 Comments No Sex and Gender Information Value Date Recorded Sex Assigned at Not on file Legal Sex Female 6:51 AM CDT Gender Identity Not on file Sexual Orientation Not on file Last Filed Vital Signs Vital Sign Reading Time Taken Comments Blood Pressure 134/87 08/01/2024 7:43 PM SPEEDBOAT DRIVER Pulse 102 08/01/2024 7:43 PM SPEEDBOAT DRIVER Temperature 38.8 C (101.9 F) 08/01/2024 7:43 PM SPEEDBOAT DRIVER Respiratory Rate 20 08/01/2024 7:43 PM SPEEDBOAT DRIVER Oxygen Saturation 97% 08/01/2024 7:43 PM SPEEDBOAT DRIVER Inhaled Oxygen Concentration - - Weight 77.1 kg (170 lb) 08/01/2024 2:57 PM SPEEDBOAT DRIVER Height 157.5 cm (5' 2 ) 08/01/2024 2:57 PM SPEEDBOAT DRIVER Body Mass Index 31.09 08/01/2024 2:57 PM SPEEDBOAT DRIVER Plan of Treatment Not on file Medical Devices Implanted Type Area Electric Motor Repairing Supervisor Device Identifier Shelf Expiration Date Model / Serial / Lot Inktank [facility] Staple Bone Lapiplasty Speedplate Strl Rapid Compress Sk51 - [id number] Implanted:Qty: 1 on 04/02/2024 by Carla Nayak DPM at [facility] Right: First Toe [employer] 10/28/2028 SK51 / / [id number] [employer] Staple Bone Lapiplasty Speedplate Strl Rapid Compress Sk53 - Sn/A - [id number] Implanted:Qty: 1 on 04/02/2024 by Carla Nayak DPM at [facility] Right: First Toe [employer] 08/18/2028 SK53 / N/A / [id number] [employer] Max Vpc 2.5mm 16mm Cannulated Compression Headless Full Thread [id number] - [id number] Implanted:Qty: 1 on 04/02/2024 by Carla Nayak DPM at [facility] Right: First Toe [employer] [id number] / / Procedures Procedure Name Priority Date/Time Associated Diagnosis Comments XR CHEST PA LATERAL 2 VIEWS ED 08/01/2024 4:03 PM SPEEDBOAT DRIVER EGFR STAT 08/01/2024 3:18 PM SPEEDBOAT DRIVER DIFFERENTIAL AUTO STAT 08/01/2024 3:1 8 PM SPEEDBOAT DRIVER ANTIBODY SCREEN STAT 08/01/2024 3:18 PM SPEEDBOAT DRIVER ABO/RH STAT 08/01/2024 3:18 PM SPEEDBOAT DRIVER TYPE AND SCREEN STAT 08/01/2024 3:18 PM SPEEDBOAT DRIVER SEPSIS LACTATE WITH REFLEX Routine 08/01/2024 3:18 PM SPEEDBOAT DRIVER COMPREHENSIVE METABOLIC PANEL STAT 08/01/2024 3:18 PM SPEEDBOAT DRIVER CBC WITH AUTO DIFFERENTIAL STAT 08/01/2024 3:18 PM SPEEDBOAT DRIVER INFLUENZA A/B, RSV, AND COVID-19 PCR Routine 08/01/2024 3:18 PM SPEEDBOAT DRIVER URINALYSIS AND REFLEX TO MICROSCOPIC AND CULTURE STAT 08/01/2024 3:18 PM SPEEDBOAT DRIVER from Last 3 Months Results * XR Chest PA Lateral 2 Views (08/01/2024 4:03 PM SPEEDBOAT DRIVER) Anatomical Region Laterality Modality Body, Chest N/A Computed Radiogr aphy 08/01/2024 4:23 PM SPEEDBOAT DRIVER Narrative 08/01/2024 4:24 PM SPEEDBOAT DRIVER EXAM DESCRIPTION: XR CHEST PA LATERAL 2 VIEWS REASON FOR STUDY: cough c/o lower right sided back pain, diarrhea with blood in it, fever and body aches. Pt stated that she coughs she tastes blood that all started on Friday- 07/30/2024. Ex-Smoker TECHNIQUE: 2 radiographic view(s) of the chest. COMPARISON: None available FINDINGS: LUNGS: The lungs are clear. No focal pulmonary parenchymal consolidation, pleural effusion, or pneumothorax. HEART/MEDIASTINUM: Cardiac silhouette normal in size. Mediastinal and hilar contours appear normal. LINES/TUBES: None. BONES: No acute osseous abnormality. IMPRESSION: No acute cardiopulmonary abnormality. THIS IS AN ELECTRONICALLY VERIFIED FINAL REPORT 08/01/2024 4:24 PM - Electronically signed by Urbano Campbell M.D. AT: AT Report ID: [id number] Reading Location: [id number] Procedure Note Urbano Campbell MD - 08/01/2024 EXAM DESCRIPTION: XR CHEST PA LATERAL 2 VIEWS REASON FOR STUDY: cough c/o lower right sided back pain, diarrhea with blood in it, fever and body aches. Pt stated that she coughs she tastes blood that all started onFriday- 07/30/2024. Ex-Smoker TECHNIQUE: 2 radiographic view(s) of the chest. COMPARISON: None available FINDINGS: LUNGS: The lungs are clear. No focal pulmonary parenchymalconsolidation, pleural effusion, or pneumothorax. HEART/MEDIASTINUM: Cardiac silhouette normal in size. Mediastinal andhilar contours appear normal. LINES/TUBES: None. BONES: No acute osseous abnormality. IMPRESSION: No acute cardiopulmonary abnormality. THIS IS AN ELECTRONICALLY VERIFIED FINAL REPORT 08/01/2024 4:24 PM - Electronically signed by Urbano Campbell M.D. AT: AT Report ID: [id number] Reading Location: [place] [address] us Shona León MD IMG XR PROCEDURES Final Re sult * (ABNORMAL) Influenza A/B, RSV, and COVID-19 PCR Nasopharyngeal (08/01/2024 3:18 PM SPEEDBOAT DRIVER) Pathologist [facility] COVID-19 RNA Negative Negative Influenza A RNA Positive(A) Negative [facility] Influenza B RNA Negative Negative [facility] RSV RNA Negative Negative [facility] Comment: Interpretive data: Testing performed by [facility]. This test is performed using the [employer] Xpert Xpress CoV-2/Flu/RSV plus assay. This is a multiplex, real- time reverse transcriptase PCR assay intended for the qualitative detection of nucleic acid from SARS-CoV-2, influenza A, influenza B, and respiratory syncytial virus. This assay has been cleared by the [place] Food and Drug administration. The performance characteristics have been verified by the [facility]. Results must be considered in the clinical context, and a negative result does not rule out infection. Interpretive Data last revised 2023 Nasopharyngeal 08/01/2024 3: 18 PM SPEEDBOAT DRIVER 08/01/2024 3:22 PM SPEEDBOAT DRIVER Narrative [facility] - 08/01/2024 4:16 PM SPEEDBOAT DRIVER Is the Patient experiencing symptoms consistent with COVID?->Yes us Shona León MD LAB MICROBIOLOGY - GENERAL ORDERABLES Final Result [facility] 1 [facility] Department [place] [address] * Sepsis Lactate w/ Reflex (08/01/2024 3:18 PM SPEEDBOAT DRIVER) Sepsis Lactate 1.2 0.7 - 2.0 mmol/L Blood 08/01/2024 3:18 PM SPEEDBOAT DRIVER 08/01/2024 3:22 PM SPEEDBOAT DRIVER Shona León MD LAB BLOOD ORDERABLES Final Result [facility] ([place]) 1 [facility] [place] [address] * eGFR (08/01/2024 3:18 PM SPEEDBOAT DRIVER) Pathologist [facility] eGFR >90 >=60 mL/min/1. 73 m2 Comment: Interpretive Data Reference Interval Normal >/= 90 mL/min/1.73m2 Mildly decreased* 60 - 89 mL/min/1.73m2 Mildly to moderately decreased 45 - 59 mL/min/1.73m2 Moderately to severely decreased 30 - 44 mL/min/1.73m2 Severely decreased 15 - 29 mL/min/1.73m2 Kidney Failure < 15 mL/min/1.73m2 *Relative to young adult level Estimated glomerular filtration rate is determined by the 2020 CKD-EPI equation recommended by the National Kidney Foundation (A Unifying Approach to GFR Estimation: Recommendations of the NKF-ASK Task Force on Reassessing the Inclusion of Race in Diagnosing Kidney Disease, JASN 2020). The CKD-EPI equation should not be used for patients with unstable renal function and has not been validated in children and those over 70. Current interpretive data was last reviewed 2021. Blood 08/01/2024 3:18 PM SPEEDBOAT DRIVER 08/01/2024 3:22 PM SPEEDBOAT DRIVER Shona León MD LAB BLOOD ORDERABLES Final Result [facility] ([place] 1 [facility] Department [place] [employer] [place] [address] * (ABNORMAL) Differential, auto (08/01/2024 3:18 PM SPEEDBOAT DRIVER) Pathologist [facility] Neutrophil abs 4.7 1.5 - 6.5 K/cumm Imm gran abs 0.0 0.0 - 0.1 K/cumm [facility] Lymphocyte abs 0.7(L) 0.8 - 3.3 K/cumm [facility] Monocyte abs 0.9(H) 0.2 - 0.8 K/cumm [facility] Eosinophil abs 0.0 0.0 - 0.5 K/cumm [facility] Basophil abs 0.0 0.0 - 0.1 K/cumm [facility] Neutrophil pct 74.8 % [facility] Comment: Interpretive Data Percent cell count reference ranges are not reported, since discordance with absolute values may lead to misinterpretation of CBC data. Current Interpretive Data was last revised on 2017. Imm gran pct 0.2 % [facility] Comment: Interpretive Data Percent cell count reference ranges are not reported, since discordance with absolute values may lead to misinterpretation of CBC data. Current Interpretive Data was last revised on 2017. Lymphocyte pct 10.4 % [facility] Comment: Interpretive Data Percent cell count reference ranges are not reported, since discordance with absolute values may lead to misinterpretation of CBC data. Current Interpretive Data was last revised on 2017. Monocyte pct 13.7 % [facility] Comment: Interpretive Data Percent cell count reference ranges are not reported, since discordance with absolute values may lead to misinterpretation of CBC data. Current Interpretive Data was last revised on 2017. Eosinophil pct 0.6 % [facility] Comment: Interpretive Data Percent cell count reference ranges are not reported, since discordance with absolute values may lead to misinterpretation of CBC data. Current Interpretive Data was last revised on 2017. Basophil pct 0.3 % [facility] Comment: Interpretive Data Percent cell count reference ranges are not reported, since discordance with absolute values may lead to misinterpretation of CBC data. Current Interpretive Data was last revised on 2017. Blood 08/01/2024 3:18 PM SPEEDBOAT DRIVER 08/01/2024 3:22 PM SPEEDBOAT DRIVER us Shona León MD LAB BLOOD ORDERABLES Final Result [facility] ([place] 1 [facility] [employer] [place] [address] * Urinalysis reflex to microscopic and culture Urine (08/01/2024 3:18 PM SPEEDBOAT DRIVER) Color, ur Yellow Yellow Clarity, ur Clear Clear [facility] Specific gravity, ur 1.010 1.003 - 1.030 [facility] pH, urine 7.0 [facility] Comment: Interpretive Data U rine pH is affected by diet, medications, systemic acid-base disturbances, and renal tubular function. pH may affect urinary stone formation. For example, urine pH below 6.0 may help reduce the tendency for calcium phosphate stones and pH greater than 6.0 may reduce the tendency for uric acid stone formation. Source: [facility] Current Interpretive Data was last revised on 2017 Protein, ur ql Trace Negative [facility] Glucose, ur ql Negative Negative [facility] Ketones, ur Negative Negative [facility] Bilirubin, ur Negative Negative [facility] Blood, ur Negative Negative [facility] Urobilinogen, ur <2.0 <2.0 mg/dL [facility] Nitrite, ur Negative Negative [facility] Leukocyte esterase, ur Negative Negative [facility] UA reflex comment Reflex conditions for microscopic UA and culture not met. [facility] Urine 08/01/2024 3:18 PM SPEEDBOAT DRIVER 08/01/2024 3:22 PM SPEEDBOAT DRIVER Narrative [facility] ([place] - 08/01/2024 3:45 PM SPEEDBOAT DRIVER If patient unable to urinate, straight cath us Shona León MD LAB MICROBIOLOGY - GENERAL ORDERABLES Final Result [facility] ([place] 1 [facility] [employer] [place] [address] * CBC with auto differential (08/01/2024 3:18 PM SPEEDBOAT DRIVER) WBC 6.3 3.8 - 9.9 K/cumm Hgb 12.4 11.9 - 15.5 g/dL [facility] Hct 37.7 35.6 - 45.5 % [facility] Plt 231 150 - 400 K/cumm [facility] MPV 9.6 9.1 - 12.3 fL [facility] RBC 4.10 3.90 - 5.20 M/cumm [facility] MCV 92.0 81.3 - 96.4 fL [facility] MCH 30.2 27.1 - 33.3 pg [facility] MCHC 32.9 32.3 - 35.7 g/dL [facility] RDW CV 12.0 11.1 - 14.9 % [facility] RDW SD 40.6 35.7 - 48.1 fL [facility] NRBC abs 0.00 0.00 - 0.01 K/cumm [facility] Blood 08/01/2024 3:18 PM SPEEDBOAT DRIVER 08/01/2024 3:22 PM SPEEDBOAT DRIVER Shona León MD LAB BLOOD ORDERABLES Final Result [facility] 1 [facility] Department [place] [address] * ABO/Rh (08/01/2024 3:18 PM SPEEDBOAT DRIVER) ABO/Rh O Positive Blood 08/01/2024 3:18 PM SPEEDBOAT DRIVER 08/01/2024 3:22 PM SPEEDBOAT DRIVER Narrative [facility] - 08/01/2024 5:01 PM SPEEDBOAT DRIVER Has the patient had Daratumumab or Isatuximab in the past 6 months?->Unknown Shona León MD LAB BLOOD BANK TEST ORDERA BLES Final Result Performing Organization Address City/[facility]/ZIP Co de Phone Number [facility] ([place] 1 [facility] [place] [address] * Antibody screen (08/01/2024 3:18 PM SPEEDBOAT DRIVER) [place], indirect, Gel Interpretation Negative ABSC Blood 08/01/2024 3:18 PM SPEEDBOAT DRIVER 08/01/2024 3:22 PM SPEEDBOAT DRIVER Narrative [facility] - 08/01/2024 5:01 PM SPEEDBOAT DRIVER Has the patient had Daratumumab or Isatuximab in the past 6 months?->Unknown Shona León MD LAB BLOOD BANK TEST ORDERA BLES Final Result Performing Organization Address [facility] Co de Phone Number [facility] ([place] 1 [facility] [place] [address] * (ABNORMAL) Comprehensive metabolic panel (08/01/2024 3:18 PM SPEEDBOAT DRIVER) [facility] Sodium 132(L) 135 - 145 mmol/L Potassium, pl 4.0 3.3 - 4.9 mmol/L [facility] ([place] Chloride 98 97 - 110 mmol/L [facility] CO2 23 22 - 32 mmol/L [facility]) Anion gap 11 2 - 15 mmol/L [facility] BUN 12 6 - 25 mg/dL [facility] ([place] Creatinine 0.73 0.60 - 1.10 mg/dL [facility] Glucose 123 70 - 199 mg/dL [facility] ([place] Comment: Interpretive Data Fasting glucose >/= 126 mg/dl is diagnostic for diabetes. Fasting is defined as no caloric intake for at least 8 hours. Fasting glucose between 100 mg/dl to 125 mg/dl is diagnostic of prediabetes. In a patient with classic symptoms of hyperglycemia or hyperglycemic crisis, a random glucose >/= 200 mg/dl is diagnostic for diabetes. In the absence of unequivocal hyperglycemia, results should be confirmed by repeat testing. The classification and Diagnosis of Diabetes Diabetes Care 2021; 46: S19-S40. Current interpretive data was last revised 2022. Calcium 9.4 8.5 - 10.3 mg/dL [facility] Bilirubin, total 0.3 0.1 - 1.2 mg/dL [facility] Protein, pl 7.7 6.5 - 8.5 g/dL [facility] Albumin 4.4 3.5 - 5.0 g/dL [facility] Alk phos 44 40 - 130 Units/L [facility] ALT 19 7 - 45 Units/L [facility] AST 20 10 - 45 Units/L [facility] Blood 08/01/2024 3:18 PM SPEEDBOAT DRIVER 08/01/2024 3:22 PM SPEEDBOAT DRIVER us Shona León MD LAB BLOOD ORDERABLES Final Result [facility] 1 [facility] Department of Laboratories [place], [place] [id number] from Last [address] [place] [address] [facility] CLAIMS Care Teams Quarantine Officer Relationship Specialty Start Date End Date Mary Telles, SHELL COREMAKER PCP - General Family Medicine 04/29/23 Carla Nayak DPM [address] [place] [address] Consulting Physician Foot and Ankle Surg 04/02/24
--- OUTSIDE RECORDS SUMMARY | 2024-08-12 00:53 | XMS_ITS | Continuity of Care Document ---
Author Organization [facility] Address [address] [place] [address] Phone Care Team Providers Care Boardmarker Name Role Phone Sandy San MD Unavailable Unavailable Allergies, Adverse Reactions, Alerts Substance Reaction Status Criticality OXYCODONE HCL ItchyEyes, Hives, Rash Active No I nformation acetaminophen ItchyEyes, Hives, Rash Active No I nformation Medications Medication Instructions Dosage Effective Dates (start - stop) Status Comments lisinopril 20 mg tablet take 1 tablet by oral route every day 20 MG - Active atorvastatin 10 mg tablet take 1 tablet by oral route every day 10 MG - Active Procedures Procedure Date Visual Field Examination W I And R Exten ded Uni Or Bi OFFICE/OUTPATIENT VISIT, NEW Advance Directives Directive Yes / No Effective Date File Name No Information Encounters Encounter Description Practice Location Reason(s) For Visit Diagnoses Date Provider Providers Copied on Encounter OFFICE/OUTPA TIENT VISIT, [facility] Physician s, [address] [place], [address], [place] tel:[phone] [place] blurred vision (chief complaint) Concussion without loss of consciousness, initial encounterHeadaches due to old head injury 0 Jas[address]. [address], [place], [place], [id number] , [place]. tel: [phone] Referring Provider: [address], [place], [address] . tel:[phone] Family History Family Member Type Diagnosis Age At Onset Paternal Grandmother Problem (finding) High cholestero l Paternal Grandmother Problem (finding) Stroke Problem No family histor y of Retinal disease Brother Problem (finding) Hypertension Problem No family history of [place] a Mother Problem (finding) Hypertension Mother Problem (finding) Arthritis Mother Problem (finding) High cholesterol Problem No family histor y of Macular degeneration Brother Problem (finding) High cholesterol Problem No family history of Catarac ts Father Problem (finding) Hypertension Paternal Grandfather Problem (finding) High cholestero l Problem No family histor y of Cancer, unknown Paternal Grandmother Problem (finding) Hypertension Sister Problem (finding) High cholesterol Maternal Grandmother Problem (finding) Hypertension Sister Problem (finding) Hypertension Father Problem (finding) High cholesterol Payers Payer name Insurance type Covered republican ID Bowen oglesby(s) Louisa Door 6 [id number] Social History Type Description Quantity Date Captured Comments Alcohol Use Details Caffeine Use Details Tobacco Use Status Current non-smoker 20 Smoking Status Never smoker Non-Smoking Tobacco Use Details : No Details Available : No Details Available Sex Female Chief Complaint And Reason For Visit From encounter dated '06/15/2020 08:00'. blurred vision (chief complaint). Description: The 34 year old female presents for evaluation of blurred vision in the right and left eyes. Patient states that she was under her desk at work and cameup and hit her head on a metal plate. She states it was the top of her head. After she hit her headshe had a gush of tears coming from her right eye. She states this happened on May 09. She states she had floaters in her right eye. She states she was very light sensitive. She does still feelpressure behind her right eye now. She [facility] They stated that she got a concussion from this. She states they have been doing eye exercises since her concussion happened. She states she has decreased vision in both eyes since her concussion. Att's prn OU Reason For Referral Reason For Referral No Information History Of Present Illness Encounter Date Complaint History Of Prese nt Illness blurred vision The 34 year old female presents for evaluation of blurred vision in the right and left eyes. Patient states that she was under her desk at work and came up and hit her head on a metal plate. She states it was the top of her head. After she hit her head she had a gush of tears coming from her right eye. She states this happened on May 09. She states she had floaters in her right eye. She states she was very light sensitive. She does still feel pressure behind her right eye now. She states [facility]. They stated that she got a concussion from this. She states they have been doing eye exercises since her concussion happened. She states she has decreased vision in both eyes since her concussion. Att's prn OU Functional Status Date Functional Assessmen t No Information Instructions Date Instruction Additional Infor mation 6 month IOP HVF Related to Concu ssion without loss of consciousness, initial encounter Impression/Plan Related to Concu ssion without loss of consciousness, initial encounter Impression/Plan Related to Heada ches due to old head injury Assessments Type Assessment Date assessment Concussion without loss of consc iousness, initial encounter impression Concussion without l oss of consciousness, initial encounter: S06.0x0A assessment Headaches due to old head injury impression Headaches due to old head injury : G44.309 Patient Care Teams Name Effective Dates (start - stop) Status Members No Information
--- OUTSIDE RECORDS SUMMARY | 2024-08-12 00:53 | XMS_ITS | Clinical Summary ---
Author Organization [facility] [place] [address] Address [address] [place] [address] Care Team Providers Care Plaster Applicator Name Role Phone Mary Telles NP Primary Care Provider [phone] Carla Nayak DPM Unavailable [phone] Allergies Active Allergy Reactions Criticality Noted Date [...] Acquired hallux valgus of right foot 03/23/2024 Encounters Date Type Department Care Team Description 08/01/2024 6:31 PM COAT JOINER - 08/01/2024 7:49 PM [facility] Emergency [facility] Emergency Department [address] [place] [address] Influenza A (Primary Dx) Discharge Disposition: Discharge to home or self care from Last 3 Months Surgical History Surgery Date Site/Laterality Comments ARM SURGERY 07/07/2012 - 07/06/2013 Left laeft arm fx surgery, has a plate KNEE ARTHROSCOPY 07/07/2013 - 07/06/2014 Left SECTION x 2- 2016 BUNIONECTOMY 07/07/2017 - 07/06/2018 Left SHOULDER SURGERY 07/07/2018 - 07/06/2019 Right Biceps and Labrum repair FOOT SURGERY 07/07/2018 - 07/06/2019 Left Hardware removal from bunionectomy and bone spur removal ANKLE SURGERY 07/07/2019 - 07/06/2020 Left ROTATOR CUFF REPAIR 07/07/2021 - 07/06/2022 Right HYSTERECTOMY 07/07/2021 - 07/06/2022 with Bladder Suspension Medical History Medical History Date Comments Sleep apnea Hypertension PONV (postoperative nausea and vomiting) HLD (hyperlipidemia) Anxiety Social History Tobacco Use Types Packs/Day Years [...] on file Sexual Orientation Not on file Obstetrics History Last Filed Vital Signs Vital Sign Reading Time Taken Comments Blood Pressure 134/87 08/01/2024 7:43 PM COAT JOINER Pulse 102 08/01/2024 7:43 PM COAT JOINER Temperature 38.8 C (101.9 F) 08/01/2024 7:43 PM COAT JOINER Respiratory Rate 20 08/01/2024 7:43 PM COAT JOINER Oxygen Saturation 97% 08/01/2024 7:43 PM COAT JOINER Inhaled Oxygen Concentration - - Weight 77.1 kg (170 lb) 08/01/2024 2:57 PM COAT JOINER Height 157.5 cm (5' 2 ) 08/01/2024 2:57 PM COAT JOINER Body Mass Index 31.09 08/01/2024 2:57 PM COAT JOINER Plan of Treatment Health Maintenance Due Date Last Done Comments Breast Cancer Screening-Mammogram 1983 Depression Screening 1983 Hepatitis C Screening 1983 Hepatitis B Screening 10/19/2001 Regular Well Visit/Exam 18-64 10/19/2001 Varicella Vaccines (1 of 2 - 13+ 2-dose series) 05/03/2015 Covid-19 Vaccine ( season) 2024 04/09/2021, 08/03/2020, 07/13/2020 Influenza Vaccine (#1) 2024 , 04/07/2020, 05/14/2019, Additional history exists DTaP/Tdap/Td Vaccine (4 - Td or Tdap) 09/03/2032 09/03/2022, 09/23/2016, 12/15/2006, Additional history exists HPV Vaccines Completed 07/17/2011, 08/2008, 12/15/2006 Pneumococcal vaccine <65 Aged Out No longer eligible based on patient's age to complete this topic Medical Devices Implanted Type Area Research Center Director Device Identifier Shelf Expiration Date Model / Serial / Lot Net Zero [employer] Staple Bone Lapiplasty Speedplate Strl Rapid Compress [id number] - [id number] Implanted:Qty: 1 on 04/02/2024 by Carla Nayak DPM at [facility] Right: First Toe [employer] 10/28/2028 SK51 / / [id number] Chir[employer] Staple Bone Lapiplasty Speedplate Strl Rapid Compress Sk53 - Sn/A - [id number] Implanted:Qty: 1 on 04/02/2024 by Carla Nayak DPM at [facility] Right: First Toe [employer] INC 08/18/2028 SK53 / N/A / [id number] [employer] Max Vpc 2.5mm 16mm Cannulated Compression Headless Full Thread [id number] - [id number] Implanted:Qty: 1 on 04/02/2024 by Carla Nayak DPM at [facility] Right: First Toe [employer] [id number] / / Procedures Procedure Name Priority Date/Time Associated Diagnosis Comments XR CHEST PA LATERAL 2 VIEWS ED 08/01/2024 4:03 PM COAT JOINER EGFR STAT 08/01/2024 3:18 PM COAT JOINER DIFFERENTIAL AUTO STAT 08/01/2024 3:1 8 PM COAT JOINER ANTIBODY SCREEN STAT 08/01/2024 3:18 PM COAT JOINER ABO/RH STAT 08/01/2024 3:18 PM COAT JOINER TYPE AND SCREEN STAT 08/01/2024 3:18 PM COAT JOINER SEPSIS LACTATE WITH REFLEX Routine 08/01/2024 3:18 PM COAT JOINER COMPREHENSIVE METABOLIC PANEL STAT 08/01/2024 3:18 PM COAT JOINER CBC WITH AUTO DIFFERENTIAL STAT 08/01/2024 3:18 PM COAT JOINER INFLUENZA A/B, RSV, AND COVID-19 PCR Routine 08/01/2024 3:18 PM COAT JOINER URINALYSIS AND REFLEX TO MICROSCOPIC AND CULTURE STAT 08/01/2024 3:18 PM COAT JOINER from Last 3 Months Results * XR Chest PA Lateral 2 Views (08/01/2024 4:03 PM COAT JOINER) Anatomical Region Laterality Modality Body, Chest N/A Computed Radiogr aphy 08/01/2024 4:23 PM COAT JOINER Narrative 08/01/2024 4:24 PM COAT JOINER EXAM DESCRIPTION: XR CHEST PA LATERAL 2 [...] Urbano Campbell M.D. AT: AT Report ID: [id number] Reading Location: [id number] Procedure Note Urbano Campbell MD - 08/01/2024 [...] Urbano Campbell M.D. AT: AT Report ID: [id number] Reading Location: [id number] Shona León MD IMG XR PROCEDURES Final Re sult * (ABNORMAL) Influenza A/B, RSV, and COVID-19 PCR Nasopharyngeal (08/01/2024 3:18 PM COAT JOINER) Pathologist [facility] COVID-19 RNA Negative Negative Influenza A RNA Positive(A) Negative [facility] ([place]) Influenza B RNA Negative Negative [facility] ([place]) RSV RNA Negative Negative [facility] ([facility]) Comment: Interpretive data: Testing performed by [facility]. This test is performed using the swiftQueue Xpert Xpress CoV-2/Flu/RSV plus assay. This is a multiplex, real- time reverse transcriptase PCR assay intended for the qualitative detection of nucleic acid from SARS-CoV-2, influenza A, influenza B, and respiratory syncytial virus. This assay has been cleared by the [place] Food and Drug administration. The performance characteristics have been verified by the [facility]. Results must be considered in the clinical context, and a negative result does not rule out infection. Interpretive Data last revised 2023 Nasopharyngeal 08/01/2024 3: 18 PM COAT JOINER 08/01/2024 3:22 PM COAT JOINER Narrative [facility] - 08/01/2024 4:16 PM COAT JOINER Is the Patient experiencing symptoms consistent with COVID?->Yes Shona León MD LAB MICROBIOLOGY - GENERAL ORDERABLES Final Result [facility] ([facility] 1 [facility] [place] [address] * Sepsis Lactate w/ Reflex (08/01/2024 3:18 PM COAT JOINER) Pathologist [facility] Sepsis Lactate 1.2 0.7 - 2.0 mmol/L Blood 08/01/2024 3:18 PM COAT JOINER 08/01/2024 3:22 PM COAT JOINER Shona León MD LAB BLOOD ORDERABLES Final Result [facility] ([place]) 1 [facility] [place] [address] * eGFR (08/01/2024 3:18 PM COAT JOINER) Pathologist [facility] eGFR >90 >=60 mL/min/1. 73 m2 Comment: [...] last reviewed 2021. Blood 08/01/2024 3:18 PM COAT JOINER 08/01/2024 3:22 PM COAT JOINER us Shona León MD LAB BLOOD ORDERABLES Final Result [facility]) 1 [facility] [place] [address] * (ABNORMAL) Differential, auto (08/01/2024 3:18 PM COAT JOINER) Pathologist [facility] Neutrophil abs 4.7 1.5 - 6.5 K/cumm [...] revised on 2017. Blood 08/01/2024 3:18 PM COAT JOINER 08/01/2024 3:22 PM COAT JOINER us Shona León MD LAB BLOOD ORDERABLES Final Result [facility] ([place]) 1 [facility] [place] [address] * Urinalysis reflex to microscopic and culture Urine (08/01/2024 3:18 PM COAT JOINER) Color, ur Yellow Yellow Clarity, ur Clear [...] tendency for uric acid stone formation. Source: [facility] [employer] Current Interpretive Data was last revised on [...] [facility] ([place]) Urine 08/01/2024 3:18 PM COAT JOINER 08/01/2024 3:22 PM COAT JOINER Narrative [facility] ([place]) - 08/01/2024 3:45 PM COAT JOINER If patient unable to urinate, straight cath us Shona León MD LAB MICROBIOLOGY - GENERAL ORDERABLES Final Result [facility] ([place]) 1 [facility] [place] [address] * CBC with auto differential (08/01/2024 3:18 PM COAT JOINER) WBC 6.3 3.8 - 9.9 K/cumm Hgb 12.4 11.9 - 15.5 g/dL [facility] ([place]) Hct 37.7 35.6 - 45.5 % [facility] ([place]) Plt 231 150 - 400 K/cumm [facility] ([place]) MPV 9.6 9.1 - 12.3 fL [facility] ([place] RBC 4.10 3.90 - 5.20 M/cumm [facility] ([place]) MCV 92.0 81.3 - 96.4 fL [facility] ([place] MCH 30.2 27.1 - 33.3 pg [facility] ([place] MCHC 32.9 32.3 - 35.7 g/dL [facility] ([place]) RDW CV 12.0 11.1 - 14.9 % [facility] ([place] RDW SD 40.6 35.7 - 48.1 fL [facility] ([place] NRBC abs 0.00 0.00 - 0.01 K/cumm [facility] Blood 08/01/2024 3:18 PM COAT JOINER 08/01/2024 3:22 PM COAT JOINER Shona León MD LAB BLOOD ORDERABLES Final Result [facility] ([place]) 1 [facility] [place] [address] * ABO/Rh (08/01/2024 3:18 PM COAT JOINER) Pathologist [facility] ABO/Rh O Positive Blood 08/01/2024 3:18 PM COAT JOINER 08/01/2024 3:22 PM COAT JOINER Narrative [facility] ([place]) - 08/01/2024 5:01 PM COAT JOINER Has the patient had Daratumumab or Isatuximab in the past 6 months?->Unknown Shona León MD LAB BLOOD BANK TEST ORDERA BLES Final Result [facility] ([place]) 1 [facility] [employer] [place] [address] * Antibody screen (08/01/2024 3:18 PM COAT JOINER) Chaim, indirect, Gel Interpretation Negative ABSC Blood 08/01/2024 3:18 PM COAT JOINER 08/01/2024 3:22 PM COAT JOINER Narrative [facility] ([place]) - 08/01/2024 5:01 PM COAT JOINER Has the patient had Daratumumab or Isatuximab in the past 6 months?->Unknown us Shona León MD LAB BLOOD BANK TEST ORDERA BLES Final Result [facility] ([place]) 1 [facility] [place] [address] * (ABNORMAL) Comprehensive metabolic panel (08/01/2024 3:18 PM COAT JOINER) Sodium 132(L) 135 - 145 mmol/L Potassium, pl 4.0 3.3 - 4.9 mmol/L [facility] ([place]) Chloride 98 97 - 110 mmol/L [facility] ([place]) CO2 23 22 - 32 mmol/L [facility] ([place]) Anion gap 11 2 - 15 mmol/L [facility] ([place]) BUN 12 6 - 25 mg/dL [facility] ([place]) Creatinine 0.73 0.60 - 1.10 mg/dL [facility] ([place]) Glucose 123 70 - 199 mg/dL [facility] ([place]) Comment: Interpretive Data Fasting glucose >/= [...] [facility] ([place]) Blood 08/01/2024 3:18 PM COAT JOINER 08/01/2024 3:22 PM COAT JOINER us Shona León MD LAB BLOOD ORDERABLES Final Result [facility] ([place]) 1 [facility] [place] [address] from Last [address] [address] [facility] CLAIMS Care Teams Plaster Applicator Relationship Specialty Start Date End Date Mary Telles NP PCP - General Family Medicine 04/29/23 Carla Nayak DPM [address] [place] [address] Consulting Physician Foot and Ankle Surg 04/02/24
[2024-08-12 08:15] VITALS: BP 109/67; PULSE 90; RESP 18; TEMP 36; O2SAT 96; BMI 32.9
[2024-08-12] MEDS: LACTATED RINGERS 1,000 ML 150 ML IV CONT (08:24)
--- NOTE | 2024-08-12 09:08 | P.PNAN_ITS ---
Anes - Initial Pre Proc Eval Procedure: Operation Date: 08/12/24 09:30 Proposed Procedures p Esophagogastroduodenoscopy - Junior Forte MD Date/Time: 08/12/24 09:08 Surgeon: Junior Forte MD Pre Op Diagnosis: dysphagia Patient Data Age: 38 Gender: F Height: 1.57 m Weight: 81.7 kg Last Vital Signs Temp 36.0 C L 08/12/24 08:15 Pulse 90 08/12/24 08:15 Resp 18 08/12/24 08:15 BP 109/67 08/12/24 08:15 Pulse Ox 96 08/12/24 08:15 O2 Del Method Room Air 08/12/24 08:15 Allergies Allergy/AdvReac Type Severity Reaction Status Date / Time oxycodone (From Percocet) Allergy Hives Verified 08/12/24 08:14 Home Medications ?Medication ?Instructions ?Recorded ?Confirmed ?Type lisinopril 20 mg tablet 20 mg PO HS #90 tabs 05/20/24 08/12/24 Rx Patient hx anesthesia problems: none Family hx anesthesia problems: none Results Review: All pre-operative results and documents have been reviewed as part of the pre- operative evaluation. [facility] Past Medical History Medical History Urine finding Rotator cuff arthropathy of right shoulder Arthritis GERD (gastroesophageal reflux disease) Headache Hyperlipidemia Anxiety PTSD (post-traumatic stress disorder) Surgical History Surgical History History of bunionectomy H/O: hysterectomy No pertinent past surgical history Family History Family History Mother Acute myocardial infarction Congestive heart failure Grandparent Acute myocardial infarction Cerebrovascular accident Diabetes mellitus Hypertension Sibling Hypertension Social History Social History Smoking packs per day: 0.5 Smoking cigarettes per day: 10.0 Years smoked: 10 Smoking pack-years: 5.00 Smoking status: Former smoker Tobacco type: cigarettes Alcohol intake: never Substance use: current Substance use type: marijuana Other substance usage details: Gummis Last use: 07/22/24 Lack of Transportation: No Lack of Food: Never True Current Housing: I Have Housing Concerned About Future Housing: No Difficulty Paying Gas/Electric Bills: No Difficulty Paying for Meds: No Currently Unemployed: No Education: Associate Degree Difficulty w/ Childcare or Family Care: No Living arrangements: alone Spiritual care concerns: No Anes - Eval Final PreProcedure Day of Procedure 08/12/24 09:08 Patient weight: obese Heart: regular rate and rhythm Lungs: clear to auscultation Airway: Mallampati scale class II Neurological: alert and oriented Last oral intake: >/= 8 hours ASA classification: II Emergent: no Anesthetic plan: proceed Anesthesia type and monitoring: general GIVS and standard monitoring Results Review: All pre-operative results and documents have been reviewed as part of the pre- operative evaluation. Informed Consent: The patient's anesthetic plan and its attendant risks and benefits were discussed with the patient/family/POA. Questions were solicited and answers provided to the satisfaction of the patient/family/POA.
--- NOTE | 2024-08-12 09:27 | P.HP_ITS ---
H&P: HPI History of Present Illness Date/Time: 08/12/24 09:27 Chief Complaint: Dysphagia Narrative: the patient has been experiencing dysphagia to solids and liquids for the past 2 years. There is no unintentional weight loss, nausea, vomiting but there is daily and persistent heartburn. He is here f Review of Systems Review of Systems: All systems reviewed & are unremarkable except as noted in HPI and below PMFSH Past Medical History Medical History Urine finding Rotator cuff arthropathy of right shoulder Arthritis GERD (gastroesophageal reflux disease) Headache Hyperlipidemia Anxiety PTSD (post-traumatic stress disorder) Surgical History Surgical History History of bunionectomy H/O: hysterectomy No pertinent past surgical history Family History Family History Mother Acute myocardial infarction Congestive heart failure Grandparent Acute myocardial infarction Cerebrovascular accident Diabetes mellitus Hypertension Sibling Hypertension Social History Social History Smoking packs per day: 0.5 Smoking cigarettes per day: 10.0 Years smoked: 10 Smoking pack-years: 5.00 Smoking status: Former smoker Tobacco type: cigarettes Alcohol intake: never Substance use: current Substance use type: marijuana Other substance usage details: Gummis Last use: 07/22/24 Lack of Transportation: No Lack of Food: Never True Current Housing: I Have Housing Concerned About Future Housing: No Difficulty Paying Gas/Electric Bills: No Difficulty Paying for Meds: No Currently Unemployed: No Education: Associate Degree Difficulty w/ Childcare or Family Care: No Living arrangements: alone Spiritual care concerns: No Meds Home Medications and Allergies Home Medications ?Medication ?Instructions ?Recorded ?Confirmed ?Type lisinopril 20 mg tablet 20 mg PO HS #90 tabs 05/20/24 08/12/24 Rx Allergies Allergy/AdvReac Type Severity Reaction Status Date / Time oxycodone (From Percocet) Allergy Hives Verified 08/12/24 08:14 Vital Signs Vital Signs - 24 hr 08/12/24 08:15 Temperature 96.8 F L Pulse Rate 90 Respiratory Rate 18 Blood Pressure 109/67 Pulse Oximetry 96 Oxygen Delivery Room Air Exam Const: General: cooperative and healthy appearing Resp: Effort & Inspection: normal respiratory effort and able to speak in complete sentences Auscultation: clear to auscultation bilaterally Cardio: Rate: regular rate Rhythm: regular rhythm GI: Inspection: normal to inspection GI Palp: No No hepatosplenomegaly present Auscultation: normal bowel sounds Rectal Exam: deferred Skin: General skin exam: normal color Psych: Appearance: grossly normal Mental Status: mental status grossly normal Assessment and Plan Assessment and plan (1) Dysphagia: Code(s): R13.10 - Dysphagia, unspecified Status: Acute Assessment and Plan: Differential diagnosis of dysphagia in this patient's case includes eosinophilic esophagitis, peptic stricture or motility disorder such as ac halasia. Will perform EGD and biopsies. The patient is deemed a good candidate for the procedure. Consent signed. Will proceed.
[2024-08-12 09:45] VITALS: BP 114/69; PULSE 92; RESP 18; O2SAT 100
[2024-08-12 09:55] VITALS: BP 108/68; PULSE 79; RESP 18; O2SAT 100
[2024-08-12 10:05] VITALS: BP 105/71; PULSE 68; RESP 18; O2SAT 100
== END 2024-08-12 10:15 | disposition home or self-care (01) ==
PROVIDERS: PCP Family Medicine; Referring Provider Nurse Practitioner Family; Visit Provider Internal Medicine Gastroenterology
PROC: 0DJ08ZZ Inspection of Upper Intestinal Tract, Via Natural or Artificial Opening Endoscopic (ICD-10-PCS; CPT 43249; principal; 2024-08-12 09:30)
DX: K20.0 Eosinophilic esophagitis (principal); K22.2 Esophageal obstruction; Z87.891 Personal history of nicotine dependence; F12.90 Cannabis use, unspecified, uncomplicated; E66.9 Obesity, unspecified; Z68.32 Body mass index [BMI] 32.0-32.9, adult
CPT/HCPCS: 43249; 88305; C1726; J2003; J2704; J7120

== ENCOUNTER 2024-09-22 09:20 | Outpatient (CLI) | payer OTHER, SELFPAY ==
--- NOTE | ~2024-09-22 | CT_ITS ---
Noncontrast CT scan of the right foot CLINICAL HISTORY: Nonunion fusion TECHNIQUE: Axial noncontrast imaging of the right foot was performed. Sagittal and coronal reformatte d images were constructed. Dose reduction technique was used on this scan by utilizing automated expo sure control and iterative reconstruction technique. The dose-length product (DLP) was 152.88 mGy-cm. Findings: Status post orthopedic fusion across the first tarsometatarsal joint with plate and screws in place. There is irregularity and joint space narrowing of the first TMT joint, but no definite mat ure ankylosis across the joint space. There is orthopedic screw healed presumed osteotomy versus frac ture at the proximal aspect of the first proximal phalanx. Remaining joint spaces are intact. No acut e fracture evident. No distinct soft tissue abnormality seen. IMPRESSION: Status post orthopedic fusion across the first TMT joint, with irregularity and joint space narrowing , but no definite mature ankylosis across the joint space. Healed osteotomy versus fracture with orthopedic screw at the proximal aspect of the first proximal p halanx. Reviewed, dictated and finalized at location . IMPRESSION: Status post orthopedic fusion across the first TMT joint, with irregularity and joint space narrowing, but no definite mature ankylosis across the joint space . Healed osteotomy versus fracture with orthopedic screw at the proximal aspect o f the first proximal phalanx.
== END 2024-09-22 09:21 | disposition home or self-care (01) ==
PROVIDERS: PCP Family Medicine; Visit Provider Podiatrist Foot & Ankle Surgery
DX: T14.8XXA Other injury of unspecified body region, initial encounter (principal)
CPT/HCPCS: 73700

== ENCOUNTER 2024-11-16 13:06 | Outpatient (CLI) | payer OTHER, SELFPAY ==
--- OUTSIDE RECORDS SUMMARY | 2024-11-16 13:24 | XMS_ITS | Clinical Summary ---
Author Organization [facility] [place] [address] Address [address] [place] [address] Care Team Providers Care Case Briefer Name Role Phone Mary Telles NP Primary Care Provider [phone] Carla Nayak DPM Unavailable [phone] Allergies Active Allergy Reactions Criticality Noted Date [...] Acquired hallux valgus of right foot 03/23/2024 Surgical History Surgery Date Site/Laterality Comments ARM [...] Comments Blood Pressure 134/87 08/01/2024 7:43 PM FENCE LABORER Pulse 102 08/01/2024 7:43 PM FENCE LABORER Temperature 38.8 C (101.9 F) 08/01/2024 7:43 PM FENCE LABORER Respiratory Rate 20 08/01/2024 7:43 PM FENCE LABORER Oxygen Saturation 97% 08/01/2024 7:43 PM FENCE LABORER Inhaled Oxygen Concentration - - Weight 77.1 kg (170 lb) 08/01/2024 2:57 PM FENCE LABORER Height 157.5 cm (5' 2 ) 08/01/2024 2:57 PM FENCE LABORER Body Mass Index 31.09 08/01/2024 2:57 PM FENCE LABORER Plan of Treatment Health Maintenance Due Date Last Done Comments Breast Cancer Screening-Mammogram 1983 Depression Screening 1983 Hepatitis C Screening 1983 Hepatitis B Screening 10/19/2001 Regular Well Visit/Exam 18-64 10/19/2001 Varicella Vaccines (1 of 2 - 13+ 2-dose series) 05/03/2015 Covid-19 Vaccine ( season) 2024 04/09/2021, 08/03/2020, 07/13/2020 Influenza Vaccine (Season Ended) 2025 03/15/2021, 04/07/2020, 05/14/2019, Additional history exists DTaP/Tdap/Td Vaccine (4 - Td or Tdap) 09/03/2032 09/03/2022, 09/23/2016, 12/15/2006, Additional history exists HPV Vaccines Completed 07/17/2011, 08/2008, 12/15/2006 Pneumococcal vaccine <65 Aged Out No longer eligible based on patient's age to complete this topic Medical Devices Implanted Type Area Dining Car Waiter/Waitress Device Identifier Shelf Expiration Date Model / Serial / Lot [employer] Staple Bone Lapiplasty Speedplate Strl Rapid Compress Sk51 - [id number] Implanted:Qty: 1 on 04/02/2024 by Carla Nayak DPM at [facility] Right: First Toe [employer] 10/28/2028 SK51 / / [id number] [employer] Staple Bone Lapiplasty Speedplate Strl Rapid Compress Sk53 - Sn/A - [id number] Implanted:Qty: 1 on 04/02/2024 by Carla Nayak DPM at [facility] Right: First Toe [employer] 08/18/2028 SK53 / N/A / [id number] [employer] Max Vpc 2.5mm 16mm Cannulated Compression Headless Full Thread [id number] - [id number] Implanted:Qty: 1 on 04/02/2024 by Carla Nayak DPM at [facility] Right: First Toe [employer] [id number] / / [place] [address] [facility] CLAIMS Care Teams Case Briefer Relationship Specialty Start Date End Date Mary Telles NP PCP - General Family Medicine 04/29/23 Carla Nayak DPM [address] [place] [id number] Consulting Physician Foot and Ankle Surg 04/02/24
--- OUTSIDE RECORDS SUMMARY | 2024-11-16 13:24 | XMS_ITS | Referral Summary ---
Author Organization [facility] [place] [address] Address [address] [place] [address] Care Team Providers Care Garbage Collector Driver Name Role Phone Mary Telles NP Primary Care Provider [phone] Carla Nayak DPM Unavailable Allergies Active Allergy Reactions Criticality Noted Date [...] Comments Blood Pressure 134/87 08/01/2024 7:43 PM AUGER MACHINE OFFBEARER Pulse 102 08/01/2024 7:43 PM AUGER MACHINE OFFBEARER Temperature 38.8 C (101.9 F) 08/01/2024 7:43 PM AUGER MACHINE OFFBEARER Respiratory Rate 20 08/01/2024 7:43 PM AUGER MACHINE OFFBEARER Oxygen Saturation 97% 08/01/2024 7:43 PM AUGER MACHINE OFFBEARER Inhaled Oxygen Concentration - - Weight 77.1 kg (170 lb) 08/01/2024 2:57 PM AUGER MACHINE OFFBEARER Height 157.5 cm (5' 2 ) 08/01/2024 2:57 PM AUGER MACHINE OFFBEARER Body Mass Index 31.09 08/01/2024 2:57 PM AUGER MACHINE OFFBEARER Plan of Treatment Not on file Medical Devices Implanted Type Area Geophysical Drafter Device Identifier Shelf Expiration Date Model / Serial / Lot [employer] Staple Bone Lapiplasty Speedplate Strl Rapid Compress Sk51 - [id number] Implanted:Qty: 1 on 04/02/2024 by Carla Nayak DPM at [facility] Right: First Toe [employer] 10/28/2028 SK51 / / [id number] [employer] Staple Bone Lapiplasty Speedplate Strl Rapid Compress Sk53 - Sn/A - [id number] Implanted:Qty: 1 on 04/02/2024 by Carla Nayak DPM at [facility] Right: First Toe [employer] 08/18/2028 SK53 / N/A / [id number] [employer] Max Vpc 2.5mm 16mm Cannulated Compression Headless Full Thread [id number] - [id number] Implanted:Qty: 1 on 04/02/2024 by Carla Nayak DPM at [facility] Right: First Toe [employer] [id number] / / [place] [address] [facility] CLAIMS Care Teams Garbage Collector Driver Relationship Specialty Start Date End Date Mary Telles NP PCP - General Family Medicine 04/29/23 Carla Nayak DPM [address] [place] [id number] Consulting Physician Foot and Ankle Surg 04/02/24
[2024-11-16 21:01] LABS: Thyroid Stimulating Hormone 0.509 uIU/mL (0.465-4.680); Total Triiodothyronine (T3) 1.09 NG/ML (0.97-1.69)
[2024-11-16 21:03] LABS: Alanine Aminotransferase 29 U/L (6-35); Albumin Level 4.7 g/dL (3.5-5.1); Alkaline Phosphatase 53 U/L (38-126); Anion Gap 7 mmol/L (4-12); Aspartate Amino Transferase 42 U/L (14-36); Bilirubin,Total 0.6 mg/dL (0.2-1.3); Blood Urea Nitrogen 22 mg/dL (7-17); Calcium 9.2 mg/dL (8.4-10.2); Carbon Dioxide 27 mmol/L (22-30); Chloride 101 mmol/L (98-107); Estimated Glomerular Filt Rate 27; Glucose 101 mg/dL (65-110); Potassium 4.3 mmol/L (3.4-5.0); Sodium 135 mmol/L (137-145)
[2024-11-16 21:04] LABS: Vitamin D 25 Hydroxy 39.4 ng/mL
[2024-11-16 21:14] LABS: Free T4 Free Thyroxine 1.23 ng/dL (0.78-2.19)
[2024-11-16 21:53] LABS: Vitamin B12 > 1000.0 pg/mL (239-931)
[2024-11-17 08:13] LABS: FSH 7.1 mIU/mL; LH 8.1 mIU/mL
[2024-11-19 09:48] LABS: Vitamin B6 42.4 ng/mL (2.1-21.7)
== END 2024-11-16 13:07 | disposition home or self-care (01) ==
LOC: ANHGOSHLAB 13:07
PROVIDERS: PCP Family Medicine; Visit Provider Nurse Practitioner Family
DX: F41.9 Anxiety disorder, unspecified (principal); I10 Essential (primary) hypertension; E78.5 Hyperlipidemia, unspecified; E66.9 Obesity, unspecified; K20.0 Eosinophilic esophagitis; R45.86 Emotional lability; E53.9 Vitamin B deficiency, unspecified; E55.9 Vitamin D deficiency, unspecified
CPT/HCPCS: 36415; 80053; 82306; 82607; 82670; 83001; 83002; 84207; 84403; 84439; 84443; 84480

== ENCOUNTER 2024-12-02 12:14 | Emergency (ER) | payer OTHER, SELFPAY ==
--- NOTE | ~2024-12-02 | XR_ITS ---
CHEST RADIOGRAPH, PA AND LATERAL CLINICAL HISTORY: chest pain . COMPARISON: 03/14/2023 TECHNIQUE: PA and lateral views of the chest. FINDINGS The cardiomediastinal silhouette is unremarkable. The lungs are clear. Visualized osseous structures and soft tissues are unremarkable. IMPRESSION: No focal infiltrate or effusion. Reviewed, dictated and finalized at location A.
[2024-12-02 12:17] VITALS: BP 164/103; PULSE 104; RESP 20; TEMP 36.3; O2SAT 100
--- NOTE | 2024-12-02 12:17 | ECG_ITS ---
Test Date: 2024-12-02 12:19:29 Measurements Intervals [place] Rate: 94 P: 41 NV: 151 QRS: 14 QRSD: 78 T: 35 QT: 354 QTc: 445 Interpretive Statements SINUS RHYTHM POSSIBLE LEFT ATRIAL ENLARGEMENT [-0.1mV P WAVE IN V1/V2] POSSIBLE LEFT VENTRICULAR HYPERTROPHY [VOLTAGE CRITERIA PLUS LAE OR QRS WIDENING] NONSPECIFIC ST AND T WAVE ABNORMALITY No previous ECG available for comparison Electronically Signed On 12-03-2024 11:04:28 CDT by Bimal Thakur M.D.
--- OUTSIDE RECORDS SUMMARY | 2024-12-02 12:18 | XMS_ITS | Clinical Summary ---
Author Organization [facility] [address] Address [address] [place] [address] Care Team Providers Care Station Jailer Name Role Phone Mary Telles NP Primary Care Provider [phone] Carla Nayak DPM Unavailable [phone] Allergies Active Allergy Reactions Criticality Noted Date [...] Comments Blood Pressure 134/87 08/01/2024 7:43 PM ORE FIELDER Pulse 102 08/01/2024 7:43 PM ORE FIELDER Temperature 38.8 C (101.9 F) 08/01/2024 7:43 PM ORE FIELDER Respiratory Rate 20 08/01/2024 7:43 PM ORE FIELDER Oxygen Saturation 97% 08/01/2024 7:43 PM ORE FIELDER Inhaled Oxygen Concentration - - Weight 77.1 kg (170 lb) 08/01/2024 2:57 PM ORE FIELDER Height 157.5 cm (5' 2) 08/01/2024 2:57 PM ORE FIELDER Body Mass Index 31.09 08/01/2024 2:57 PM ORE FIELDER Plan of Treatment Health Maintenance Due Date [...] this topic Medical Devices Implanted Type Area Bus Dispatcher Interstate Device Identifier Shelf Expiration Date Model / Serial / Lot [employer] Staple Bone Lapiplasty Speedplate Strl Rapid Compress Sk51 - [id number] Implanted:Qty: 1 on 04/02/2024 by Carla Nayak DPM at [facility] Right: First Toe [employer] 10/28/2028 SK51 / / [id number] [employer] Staple Bone Lapiplasty Speedplate Strl Rapid Compress Sk53 - Sn/A - [id number] Implanted:Qty: 1 on 04/02/2024 by Carla Nayak DPM at [facility] Right: First Toe [employer] 08/18/2028 SK53 / N/A / [id number] [employer] Max Vpc 2.5mm 16mm Cannulated Compression Headless Full Thread [id number] - [id number] Implanted:Qty: 1 on 04/02/2024 by Carla Nayak DPM at [facility] Right: First Toe [employer] [id number] / / [place] [address] [facility] CLAIMS Care Teams Station Jailer Relationship Specialty Start Date End Date Mary Telles NP PCP - General Family Medicine 04/29/23 Carla Nayak DPM [address] [place] [address] Consulting Physician Foot and Ankle Surg 04/02/24
--- OUTSIDE RECORDS SUMMARY | 2024-12-02 12:18 | XMS_ITS | Referral Summary ---
Author Organization [facility] [address] Address [address] [place] [address] Care Team Providers Care Machinist Mechanic Name Role Phone Mary Telles NP Primary Care Provider [phone] Carla Nayak DPM Unavailable [phone] Allergies Active Allergy Reactions Criticality Noted Date [...] Comments Blood Pressure 134/87 08/01/2024 7:43 PM STAMPING OPERATOR Pulse 102 08/01/2024 7:43 PM STAMPING OPERATOR Temperature 38.8 C (101.9 F) 08/01/2024 7:43 PM STAMPING OPERATOR Respiratory Rate 20 08/01/2024 7:43 PM STAMPING OPERATOR Oxygen Saturation 97% 08/01/2024 7:43 PM STAMPING OPERATOR Inhaled Oxygen Concentration - - Weight 77.1 kg (170 lb) 08/01/2024 2:57 PM STAMPING OPERATOR Height 157.5 cm (5' 2) 08/01/2024 2:57 PM STAMPING OPERATOR Body Mass Index 31.09 08/01/2024 2:57 PM STAMPING OPERATOR Plan of Treatment Not on file Medical Devices Implanted Type Area Grinder Gear Device Identifier Shelf Expiration Date Model / Serial / Lot [employer] Staple Bone Lapiplasty Speedplate Strl Rapid Compress Sk51 - [id number] Implanted:Qty: 1 on 04/02/2024 by Carla Nayak DPM at [facility] Right: First Toe [employer] 10/28/2028 SK51 / / [id number] [employer] Staple Bone Lapiplasty Speedplate Strl Rapid Compress Sk53 - Sn/A - [id number] Implanted:Qty: 1 on 04/02/2024 by Carla Nayak DPM at [facility] Right: First Toe [employer] 08/18/2028 SK53 / N/A / [id number] [employer] Max Vpc 2.5mm 16mm Cannulated Compression Headless Full Thread [id number] - [id number] Implanted:Qty: 1 on 04/02/2024 by Carla Nayak DPM at [facility] Right: First Toe [employer] [id number] / / [place] [address] [facility] CLAIMS Care Teams Machinist Mechanic Relationship Specialty Start Date End Date Mary Telles NP PCP - General Family Medicine 04/29/23 Carla Nayak DPM [address] [place] [address] Consulting Physician Foot and Ankle Surg 04/02/24
[2024-12-02 13:20] LABS: Basophils Percent Auto 0.3 % (0.2-1.2); Eosinophils Absolute Auto 0.1 K/mm3 (0-0.3); Eosinophils Percent Auto 0.6 % (0-4.4); Hematocrit 39.5 % (37.0-47.0); Hemoglobin 12.6 g/dL (12.0-15.0); Immature Granulocyte Absolute 0.04 K/mm3 (0.00-0.031); Immature Granulocyte Percent A 0.4 % (0-0.5); Lymphocytes Absolute Auto 2.21 K/mm3 (0.9-3.2); Lymphocytes Percent Auto 20.8 % (18.3-44.2); Mean Corpuscular HGB Conc 31.9 g/dl (32-36); Mean Corpuscular Hemoglobin 29.8 pg (26-34); Mean Corpuscular Volume 93.4 fl (80-100); Mean Platelet Volume 9.7 fl (7.4-10.4); Monocytes Absolute Auto 0.7 K/mm3 (0.1-0.6); Monocytes Percent Auto 6.6 % (2.6-8.5); Neutrophils Absolute Auto 7.6 K/mm3 (1.3-6.7); Neutrophils Percent Auto 71.3 % (45.5-73.1); Platelet Count Result 310 k/mm3 (150-375); Red Blood Count 4.23 M/mm3 (4.2-5.4); Red Cell Distribution Width 12.5 % (11.5-14.5); White Blood Count 10.6 K/mm3 (4.5-10.0)
--- NOTE | 2024-12-02 13:29 | ED_ITS ---
HPI - Chest Pain General Chief Complaint: Chest Pain <Ольга Allen PA-C - Last Filed: 12/03/24 09:23> Stated Complaint: chest pain, L arm tingling, dizziness <Ольга Allen PA-C - Last Filed: 12/03/24 09:23> Time Seen by Provider: 12/02/24 13:29 <Ольга Allen PA-C - Last Filed: 12/03/24 09:23> Focused HPI: This is a 39 year old female that presents to the ER for chest pain. Reports history of panic attacks. Reports yesterday she had one and was able to breathe through it. Reports she started to develop a headache last night. Her heart felt like it was racing. Reports today she started to develop a headache, tingling in her left arm, sharp/stabbing pain in the left side of her chest. No history of CAD. Reports family history of CAD. She is not a smoker. Reports history of hyperlipidemia. Reports she was recently taken off her Lisinopril due to kidney issues. GENERAL: Anxious, well-nourished, in no acute distress. HEAD: Normocephalic, atraumatic. CHEST: Clear to auscultation. ?No respiratory distress. HEART: Regular rate and rhythm.? NEURO: ?Alert and oriented x3. Patient screened in triage and initial orders placed.? ?Additional care and disposition to be based upon?diagnostic testing and treatment. <Ольга Allen PA-C - Last Filed: 12/03/24 09:23> History of Present Illness HPI narrative: patient is a 39-year-old female who presents emergency department with chief complaint of chest discomfort. Patient reports that she has history of panic attacks reports yesterday she had 1 and inability headache patient states she felt like her heart was racing and today she had some tingling left side of her chest and arm patient states that she has family history of cardiac disease reports she has history of hyperlipidemia and hypertension patient states that her symptoms are doing much better at this time patient reports no focal weakness in her arms or legs denies facial droop <Hoang Lloyd MD - Last Filed: 12/02/24 16:06> Related Data Allergies/Adverse Reactions: Allergies Allergy/AdvReac Type Severity Reaction Status Date / Time oxycodone (From Percocet) Allergy Hives Verified 12/02/24 12:17 <Ольга Allen PA-C - Last Filed: 12/03/24 09:23> Review of Systems 2 Review of Systems: A 10 system review of systems was completed on the patient and is negative except for what is stated in the HPI. Nursing and ancillary documentation was reviewed. <Hoang Lloyd MD - Last Filed: 12/02/24 16:06> [facility] Past Medical History Medical History: Medical History Urine finding Rotator cuff arthropathy of right shoulder Arthritis GERD (gastroesophageal reflux disease) Headache Hyperlipidemia Anxiety PTSD (post-traumatic stress disorder) <Ольга Allen PA-C - Last Filed: 12/03/24 09:23> Surgical History Surgical History: Surgical History History of bunionectomy H/O: hysterectomy No pertinent past surgical history <Ольга Allen PA-C - Last Filed: 12/03/24 09:23> Family History Family History: Family History Mother Acute myocardial infarction Congestive heart failure Grandparent Acute myocardial infarction Cerebrovascular accident Diabetes mellitus Hypertension Sibling Hypertension <Ольга Allen PA-C - Last Filed: 12/03/24 09:23> Social History Social History: Social History Smoking packs per day: 0.5 Smoking cigarettes per day: 10.0 Years smoked: 10 Smoking pack-years: 5.00 Smoking status: Former smoker Tobacco type: cigarettes Alcohol intake: never Substance use: current Substance use type: marijuana Other substance usage details: Gummis Last use: 07/22/24 Lack of Transportation: No Lack of Food: Never True Current Housing: I Have Housing Concerned About Future Housing: No Difficulty Paying Gas/Electric Bills: No Difficulty Paying for Meds: No Currently Unemployed: No Education: Associate Degree Difficulty w/ Childcare or Family Care: No Living arrangements: alone Spiritual care concerns: No <Ольга Allen PA-C - Last Filed: 12/03/24 09:23> Exam 2 Narrative: GENERAL: Well-appearing, well-nourished, and in no acute distress. HEAD: Normocephalic, atraumatic. EYES: PERRLA and EOMI. ENT: Nares clear, no rhinorrhea or epistaxis. Mucous membranes moist. NECK: Supple. CHEST: Clear to auscultation. No respiratory distress. HEART: Regular rate and rhythm. No murmur heard. Normal peripheral pulses. ABDOMEN: Soft, nontender, nondistended, normal active bowel sounds. EXTREMITIES: Normal range of motion. No edema. SKIN: Warm, dry, no rash. NEURO: No focal deficits. Alert and oriented x3. PSYCH: Normal mood and affect. <Hoang Lloyd MD - Last Filed: 12/02/24 16:06> Course Vital Signs Vital signs: Vital Signs Temperature 97.4 F L 12/02/24 12:17 Pulse Rate 104 H 12/02/24 12:17 Respiratory Rate 20 12/02/24 12:17 Blood Pressure 164/103 H 12/02/24 12:17 Pulse Oximetry 100 12/02/24 12:17 Temperature 98.2 F 12/02/24 16:23 Pulse Rate 73 12/02/24 16:23 Respiratory Rate 16 12/02/24 16:23 Blood Pressure 145/84 H 12/02/24 16:23 Pulse Oximetry 98 12/02/24 16:23 Oxygen Delivery Room Air 12/02/24 15:22 <Ольга Allen PA-C - Last Filed: 12/03/24 09:23> Vital Signs Temperature 97.4 F L 12/02/24 12:17 Pulse Rate 104 H 12/02/24 12:17 Respiratory Rate 20 12/02/24 12:17 Blood Pressure 164/103 H 12/02/24 12:17 Pulse Oximetry 100 12/02/24 12:17 Temperature 98.2 F 12/02/24 16:23 Pulse Rate 73 12/02/24 16:23 Respiratory Rate 16 12/02/24 16:23 Blood Pressure 145/84 H 12/02/24 16:23 Pulse Oximetry 98 12/02/24 16:23 Oxygen Delivery Room Air 12/02/24 15:22 <Hoang Lloyd MD - Last Filed: 12/02/24 16:06> MDM - Chest Pain MDM Narrative Medical decision making narrative: Differential diagnosis includes ACS, pulmonary embolism, dysrhythmia, pneumonia, pneumothorax EKG showed no acute ischemic changes initial troponin was -3 hour troponin was negative D-dimer was negative chest x-ray showed focal infiltrate no evidence of cardiomegaly and no pulmonary edema <Hoang Lloyd MD - Last Filed: 12/02/24 16:06> Lab Data Result diagrams: 12/02/24 13:13 12/02/24 13:14 <Ольга Allen PA-C - Last Filed: 12/03/24 09:23> Labs: Lab Results 12/02/24 12/02/24 12/02/24 Range/Units 13:13 13:14 15:25 WBC 10.6 H (4.5-10.0) K/mm3 RBC 4.23 (4.2-5.4) M/mm3 Hgb 12.6 (12.0-15.0) g/dL Hct 39.5 (37.0-47.0) % MCV 93.4 (80-100) fl MCH 29.8 (26-34) pg MCHC 31.9 L (32-36) g/dl RDW 12.5 (11.5-14.5) % Plt Count 310 (150-375) k/mm3 MPV 9.7 (7.4-10.4) fl Immature Gran % (Auto) 0.4 (0-0.5) % Neut % (Auto) 71.3 (45.5-73.1) % Lymph % (Auto) 20.8 (18.3-44.2) % [place] % (Auto) 6.6 (2.6-8.5) % Eos % (Auto) 0.6 (0-4.4) % Baso % (Auto) 0.3 (0.2-1.2) % Lymph # (Auto) 2.21 (0.9-3.2) K/mm3 [place] # (Auto) 0.7 H (0.1-0.6) K/mm3 Eos # (Auto) 0.1 (0-0.3) K/mm3 Baso # (Auto) 0.0 (0.0-0.1) K/mm3 Abs Immat Gran (auto) 0.04 H (0.00-0.031) K/mm3 Absolute Neuts (auto) 7.6 H (1.3-6.7) K/mm3 Absolute Nucleated RBC 0.000 (0.0-0.012) K/mm3 Nucleated RBC % 0.0 (0.0-0.2) % PT 12.2 (11.1-14.7) Seconds INR 0.9 APTT 26.9 (22.3-36.8) Seconds D-Dimer 0.32 (<0.48) ug/mL Sodium 139 (137-145) mmol/L Potassium 4.5 (3.4-5.0) mmol/L Chloride 104 (98-107) mmol/L Carbon Dioxide 27 (22-30) mmol/L Anion Gap 8 (4-12) mmol/L BUN 19 H (7-17) mg/dL Creatinine 0.72 (0.7-1.0) mg/dL Estim Creat Clear Calc 86 ml/min Estimated GFR > 60 (59 - ) Glucose 112 H (65-110) mg/dL Calcium 9.5 (8.4-10.2) mg/dL Total Bilirubin 0.6 (0.2-1.3) mg/dL AST 51 H (14-36) U/L ALT 34 (6-35) U/L Alkaline Phosphatase 50 (38-126) U/L Troponin I < 0.012 < 0.012 (0.000-0.034) ng/mL Total Protein 9.0 H (6.3-8.2) g/dL Albumin 4.7 (3.5-5.1) g/dL Lipase 59 (23-300) U/L <Ольга Allen PA-C - Last Filed: 12/03/24 09:23> Lab Results 12/02/24 12/02/24 12/02/24 Range/Units 13:13 13:14 15:25 WBC 10.6 H (4.5-10.0) K/mm3 RBC 4.23 (4.2-5.4) M/mm3 Hgb 12.6 (12.0-15.0) g/dL Hct 39.5 (37.0-47.0) % MCV 93.4 (80-100) fl MCH 29.8 (26-34) pg MCHC 31.9 L (32-36) g/dl RDW 12.5 (11.5-14.5) % Plt Count 310 (150-375) k/mm3 MPV 9.7 (7.4-10.4) fl Immature Gran % (Auto) 0.4 (0-0.5) % Neut % (Auto) 71.3 (45.5-73.1) % Lymph % (Auto) 20.8 (18.3-44.2) % [place] % (Auto) 6.6 (2.6-8.5) % Eos % (Auto) 0.6 (0-4.4) % Baso % (Auto) 0.3 (0.2-1.2) % Lymph # (Auto) 2.21 (0.9-3.2) K/mm3 [place] # (Auto) 0.7 H (0.1-0.6) K/mm3 Eos # (Auto) 0.1 (0-0.3) K/mm3 Baso # (Auto) 0.0 (0.0-0.1) K/mm3 Abs Immat Gran (auto) 0.04 H (0.00-0.031) K/mm3 Absolute Neuts (auto) 7.6 H (1.3-6.7) K/mm3 Absolute Nucleated RBC 0.000 (0.0-0.012) K/mm3 Nucleated RBC % 0.0 (0.0-0.2) % PT 12.2 (11.1-14.7) Seconds INR 0.9 APTT 26.9 (22.3-36.8) Seconds D-Dimer 0.32 (<0.48) ug/mL Sodium 139 (137-145) mmol/L Potassium 4.5 (3.4-5.0) mmol/L Chloride 104 (98-107) mmol/L Carbon Dioxide 27 (22-30) mmol/L Anion Gap 8 (4-12) mmol/L BUN 19 H (7-17) mg/dL Creatinine 0.72 (0.7-1.0) mg/dL Estim Creat Clear Calc 86 ml/min Estimated GFR > 60 (59 - ) Glucose 112 H (65-110) mg/dL Calcium 9.5 (8.4-10.2) mg/dL Total Bilirubin 0.6 (0.2-1.3) mg/dL AST 51 H (14-36) U/L ALT 34 (6-35) U/L Alkaline Phosphatase 50 (38-126) U/L Troponin I < 0.012 < 0.012 (0.000-0.034) ng/mL Total Protein 9.0 H (6.3-8.2) g/dL Albumin 4.7 (3.5-5.1) g/dL Lipase 59 (23-300) U/L <Hoang Lloyd MD - Last Filed: 12/02/24 16:06> Imaging Data Radiologist's impression: ITS Impressions Chest X-Ray 12/02/24 14:59 IMPRESSION: No focal infiltrate or effusion. <Ольга Allen PA-C - Last Filed: 12/03/24 09:23> Critical Care Time Critical Care Time Critical Care Time: No <Ольга Allen PA-C - Last Filed: 12/03/24 09:23> Discharge Plan Discharge Clinical Impression: Atypical chest pain <Ольга Allen PA-C - Last Filed: 12/03/24 09:23> Patient Disposition: Home <Ольга Allen PA-C - Last Filed: 12/03/24 09:23> Condition: Stable <Ольга Allen PA-C - Last Filed: 12/03/24 09:23> Instructions: Antibiotic Form, Chest Pain (ED) <Ольга Allen PA-C - Last Filed: 12/03/24 09:23> Patient Language: Pakistani <LORENA Ruggiero Last Filed: 12/03/24 09:23> Prescriptions: No Action Repatha SureClick 140 mg/mL pen injector 140 mg subcut MONTHLY Qty: 2 1RF omeprazole magnesium 20 mg capsule,delayed release(DR/EC) 20 mg PO BID MDD 40 mg 30 Days Qty: 60 2RF lisinopril 20 mg tablet 20 mg PO HS Qty: 90 1RF <Ольга Allen PA-C - Last Filed: 12/03/24 09:23> Follow-up/Referrals: Jacek Spring MD [Primary Care Provider] - <Ольга Allen PA-C - Last Filed: 12/03/24 09:23> Time of Disposition: 16:05 <Ольга Allen PA-C - Last Filed: 12/03/24 09:23> 16:05 <Hoang Lloyd MD - Last Filed: 12/02/24 16:06>
[2024-12-02 13:30] LABS: Alanine Aminotransferase 34 U/L (6-35); Albumin Level 4.7 g/dL (3.5-5.1); Alkaline Phosphatase 50 U/L (38-126); Anion Gap 8 mmol/L (4-12); Aspartate Amino Transferase 51 U/L (14-36); Bilirubin,Total 0.6 mg/dL (0.2-1.3); Blood Urea Nitrogen 19 mg/dL (7-17); Calcium 9.5 mg/dL (8.4-10.2); Carbon Dioxide 27 mmol/L (22-30); Chloride 104 mmol/L (98-107); Estimated CRCL calculation 86 ml/min; Estimated Glomerular Filt Rate > 60; Glucose 112 mg/dL (65-110); Lipase 59 U/L (23-300); Potassium 4.5 mmol/L (3.4-5.0); Sodium 139 mmol/L (137-145)
[2024-12-02 13:36] LABS: INR 0.9; Prothrombin Time 12.2 Seconds (11.1-14.7)
[2024-12-02 13:37] LABS: Partial Thromboplastin Time 26.9 Seconds (22.3-36.8)
[2024-12-02 13:42] LABS: Troponin I < 0.012 ng/mL (0.000-0.034)
--- NOTE | 2024-12-02 15:20 | ECG_ITS ---
Test Date: 2024-12-02 15:29:28 Measurements Intervals [place] Rate: 70 P: 10 MT: 153 QRS: 22 QRSD: 88 T: 30 QT: 400 QTc: 433 Interpretive Statements SINUS RHYTHM NONSPECIFIC ST AND T WAVE ABNORMALITY Compared to ECG 12/02/2024 12:19:29 NO SIGNIFICANT CHANGES Electronically Signed On 12-03-2024 11:08:19 CDT by Bimal Thakur M.D.
[2024-12-02 15:22] VITALS: PULSE 83; O2SAT 100
[2024-12-02 15:24] VITALS: BP 152/91; PULSE 85; RESP 16; O2SAT 100
--- OUTSIDE RECORDS SUMMARY | 2024-12-02 15:43 | XMS_ITS | Referral Summary ---
Author Organization [facility] [address] Address [address] [place] [address] Care Team Providers Care Range Management Specialist Name Role Phone Mary Telles SUPERVISOR IRRIGATION Primary Care Provider [phone] Carla Nayak DPM Unavailable [phone] Encounters Date Type Department Care Team Description 12/02/2024 Orders Only [facility] [place] [facility] [address] [facility] [address] [place] [address] Mary Telles, SUPERVISOR IRRIGATION Sacroiliitis (Primary Dx) from Last 3 Months Allergies Active Allergy [...] Comments Blood Pressure 134/87 08/01/2024 7:43 PM ANNEALER Pulse 102 08/01/2024 7:43 PM ANNEALER Temperature 38.8 C (101.9 F) 08/01/2024 7:43 PM ANNEALER Respiratory Rate 20 08/01/2024 7:43 PM ANNEALER Oxygen Saturation 97% 08/01/2024 7:43 PM ANNEALER Inhaled Oxygen Concentration - - Weight 77.1 kg (170 lb) 08/01/2024 2:57 PM ANNEALER Height 157.5 cm (5' 2) 08/01/2024 2:57 PM ANNEALER Body Mass Index 31.09 08/01/2024 2:57 PM ANNEALER Plan of Treatment Not on file Medical Devices Implanted Type Area Customer Facilities Supervisor Device Identifier Shelf Expiration Date Model / Serial / Lot [employer] [facility] Staple Bone Lapiplasty Speedplate Strl Rapid Compress Sk51 - [id number] Implanted:Qty: 1 on 04/02/2024 by Carla Nayak DPM at [facility] Right: First Toe [employer] 10/28/2028 SK51 / / [id number] [employer] Staple Bone Lapiplasty Speedplate Strl Rapid Compress Sk53 - Sn/A - [id number] Implanted:Qty: 1 on 04/02/2024 by Carla Nayak DPM at [facility] Right: First Toe [employer] 08/18/2028 SK53 / N/A / [id number] [employer] Max Vpc 2.5mm 16mm Cannulated Compression Headless Full Thread [id number] - [id number] Implanted:Qty: 1 on 04/02/2024 by Carla Nayak DPM at [facility] Right: First Toe [employer] [id number] / / [place] [address] [facility] CLAIMS Care Teams Range Management Specialist Relationship Specialty Start Date End Date Mary Telles, SUPERVISOR IRRIGATION PCP - General Family Medicine 04/29/23 Carla Nayak DPM [address] [place] [address] [id number] Consulting Physician Foot and Ankle Surg 04/02/24
--- OUTSIDE RECORDS SUMMARY | 2024-12-02 15:43 | XMS_ITS | Encounter Summary ---
Author Organization [facility] Address [address] [place] [address] Care Team Providers Care Boat Diesel Motor Mechanic Name Role Phone Mary Telles FEEDER DRIVER Primary Care Provider [phone] Carla Nayak DPM Unavailable [phone] Reason for Referral * Consultation (Routine) - Pending Review Specialty Diagnoses / Procedures Referred By Mukund scott Referred To Contact Pain Management Diagnoses Sacroiliitis Mary Telles, R[place]ALL [address] [place] [address] Phone: tel: fax: [address] [address] Referral ID Status Reason Start Date Expiration Date Visits Requested Visits Authorized [id number] Pending Review Specialty Services Required 12/02/2024 01/01/2026 1 1 Question Answer Please select the performing region: [facility] [[id number]] # of visits: 1 Encounter Details Date Type Department Care Team (Late st Contact Info) Description 12/02/2024 Orders Only [facility] [place] [facility] [address] [place] [address] Mary Telles, FEEDER DRIVER [address] [place] [address] Sacroiliitis (Primary Dx) Social History Tobacco Use Types Packs/Day Years Used Date Smoking Tobacco: Former Cigarettes Smokeless Tobacco: Never AUDIT-C Answer Date Recorded Q1: How often [...] on file Sexual Orientation Not on file documented as of this encounter Plan of Treatment Scheduled Referrals Name Type Priority Associated Diagnoses Order Schedule Ambulatory referral to Pain Management Outpatient Referral Routine Sacroiliitis 1 Occurrences starting 12/02/2024 until 12/02/2025 documented as of this encounter Visit Diagnoses Diagnosis Sacroiliitis- Primary Sacroiliitis, not elsewhere classified documented in this encounter Care Teams Boat Diesel Motor Mechanic Relationship Specialty Start Date End Date Mary Telles NP PCP - General Family Medicine 04/29/23 Carla Nayak DPM [address] [place] [address] Consulting Physician Foot and Ankle Surg 04/02/24 documented as of this encounter
--- OUTSIDE RECORDS SUMMARY | 2024-12-02 15:43 | XMS_ITS | Clinical Summary ---
Author Organization [facility] [address] Address [address] [place] [address] Care Team Providers Care Automatic Transmission Mechanic Name Role Phone Mary Telles NP Primary Care Provider [phone] Carla Nayak DPM Unavailable [phone] Allergies Active Allergy Reactions Criticality Noted Date [...] Department Care Team Description 12/02/2024 Orders Only [facility] at the [facility] [address] [facility] [address] [place] [address] Mary Telles, RANDALL Sacroiliitis (Primary Dx) from Last 3 Months Surgical History Surgery [...] Comments Blood Pressure 134/87 08/01/2024 7:43 PM NATURAL REMEDY CONSULTANT Pulse 102 08/01/2024 7:43 PM NATURAL REMEDY CONSULTANT Temperature 38.8 C (101.9 F) 08/01/2024 7:43 PM NATURAL REMEDY CONSULTANT Respiratory Rate 20 08/01/2024 7:43 PM NATURAL REMEDY CONSULTANT Oxygen Saturation 97% 08/01/2024 7:43 PM NATURAL REMEDY CONSULTANT Inhaled Oxygen Concentration - - Weight 77.1 kg (170 lb) 08/01/2024 2:57 PM NATURAL REMEDY CONSULTANT Height 157.5 cm (5' 2) 08/01/2024 2:57 PM NATURAL REMEDY CONSULTANT Body Mass Index 31.09 08/01/2024 2:57 PM NATURAL REMEDY CONSULTANT Plan of Treatment Health Maintenance Due Date [...] this topic Medical Devices Implanted Type Area Site Project Manager Device Identifier Shelf Expiration Date Model / Serial / Lot [employer] Staple Bone Lapiplasty Speedplate Strl Rapid Compress Sk51 - [id number] Implanted:Qty: 1 on 04/02/2024 by Carla Nayak DPM at [facility] Right: First Toe [employer] 10/28/2028 SK51 / / [id number] [employer] Staple Bone Lapiplasty Speedplate Strl Rapid Compress Sk53 - Sn/A - [id number] Implanted:Qty: 1 on 04/02/2024 by Carla Nayak DPM at [facility] Right: First Toe [employer] 08/18/2028 SK53 / N/A / [id number] [employer] Max Vpc 2.5mm 16mm Cannulated Compression Headless Full Thread [id number] - [id number] Implanted:Qty: 1 on 04/02/2024 by Carla Nayak DPM at [facility] Right: First Toe [employer] [id number] / / Insurance [facility] CLAIMS Care Teams Automatic Transmission Mechanic Relationship Specialty Start Date End Date Mary Telles NP PCP - General Family Medicine 04/29/23 Carla Nayak DPM [address] [place] [id number] Consulting Physician Foot and Ankle Surg 04/02/24
[2024-12-02 15:56] LABS: D Dimer 0.32 ug/mL (<0.48)
[2024-12-02 15:59] LABS: Troponin I < 0.012 ng/mL (0.000-0.034)
[2024-12-02 16:23] VITALS: BP 145/84; PULSE 73; RESP 16; TEMP 36.8; O2SAT 98
== END 2024-12-02 16:25 | disposition home or self-care (01) ==
PROVIDERS: Emergency Medicine; Emergency Provider Emergency Medicine; PCP Family Medicine
DX: R07.89 Other chest pain (principal); E78.5 Hyperlipidemia, unspecified; M19.90 Unspecified osteoarthritis, unspecified site; K21.9 Gastro-esophageal reflux disease without esophagitis; Z90.710 Acquired absence of both cervix and uterus; Z87.891 Personal history of nicotine dependence; Z79.899 Other long term (current) drug therapy; R94.31 Abnormal electrocardiogram [ECG] [EKG]
CPT/HCPCS: 36415; 71046; 80053; 83690; 84484; 85025; 85380; 85610; 85730; 93005; 99284

== ENCOUNTER 2025-01-21 11:35 | Emergency (ER) | payer OTHER, SELFPAY ==
[2025-01-21] VITALS (14 sets, daily range): BP systolic 114–162; BP diastolic 73–106; PULSE 72–91; RESP 9–24; TEMP 36.8; O2SAT 95–100
--- NOTE | ~2025-01-21 | CT_ITS ---
Non-contrast Head CT History: Neurologic symptoms COMPARISON: 03/14/2023 Technique: Axial non-contrast imaging of the brain was performed. Dose reduction technique was used on this scan by utilizing automated exposure control and iterative reconstruction technique. The dose -length product (DLP) was 605.33 mGy-cm. Findings: There is no evidence of intracranial hemorrhage, mass lesion, or acute infarct. Brain par enchyma appears normal. The ventricles and subarachnoid spaces are normal in size. The calvarium ap pears normal. The visualized paranasal sinuses and mastoid air cells are clear. Impression: No significant abnormality seen. Reviewed, dictated and finalized at location . Impression: No significant abnormality seen.
--- NOTE | ~2025-01-21 | XR_ITS ---
XR chest 2V Ordering provider: Nash Ochoa MD History: 39 years Female with . chest pressure, PT STATES CHEST PAIN AND DIZZINESS . Comparison: December 02, 2024 FINDINGS: MEDIASTINUM: The cardiac silhouette is not enlarged. LUNGS: No infiltrates, effusions or pneumothorax. OTHER: No free air under the diaphragm. IMPRESSION: No acute cardiopulmonary pathology. Reviewed, dictated and finalized at location A.
--- OUTSIDE RECORDS SUMMARY | 2025-01-21 11:40 | XMS_ITS | Referral Summary ---
Author Organization [facility] [address] [place] [address] Address [address] [facility] [address] [place] [address] Care Team Providers Care Biscuit Machine Operator Name Role Phone Mary Telles SERVICE PARTS DRIVER Primary Care Provider [phone] Carla Nayak DPM Unavailable [phone] Encounters Date Type Department Care Team Description 01/14/2025 8:45 AM CDT Office Visit [facility] Cardiology [address] [place] [address] [place] [phone] Joshua Rosario MD Hypercholesteremia (Primary Dx); Palpitations; Other chest pain; Family history of early CAD 12/22/2024 1:00 PM CDT Ancillary Procedure [facility] Cardiology [address] [place] [phone] Palpitations; Other chest pain 12/16/2024 Results Follow-Up [facility] Cardiology [address] [place] [address] [address] [place] [address] Joshua Rosario MD Extended/Long-Term Holter Patch (>48 hours up to 7 days), Transthoracic Echo (TTE) Complete W Doppler/CF 12/03/2024 11:30 AM CDT Ancillary Procedure [facility]iology [address] [place] [phone] Palpitations 12/03/2024 11:00 AM CDT Office Visit [facility] Cardiology [address] [place] [phone] Joshua Rosario MD Lipid screening (Primary Dx); Palpitations; Other chest pain; Hypercholesteremia; Family history of early CAD 12/02/2024 Orders Only [facility] [place] [facility] [address] [facility] [address] [place] [address] Mary Telles NP Sacroiliitis (Primary Dx) from Last 3 Months Allergies Active Allergy Reactions Criticality Noted Date Comments Oxycodone Rash Medium 03/24/2024 Medications multivit-min/ir on fum/folic ac (ONE-A-DAY WOMEN'S COMPLETE ORAL) Take 1 each by mouth daily Active progesterone (PROMETRIUM) 100 mg capsule 12/01/2024 Acti ve propranoloL (INDERAL) 10 mg tablet 12/01/2024 Active multivitamin tabletIndicatio ns:Vitamin Deficiency Prevention Take 1 tablet by mouth Active omeprazole (PriLOSEC) 20 mg capsule Take 1 capsule (20 mg total) by mouth daily Active omega-3 fatty acids-fish oil 300-1,000 mg capsule Take 2 capsules (2 g total) by mouth daily Active evolocumab (REPATHA) syringe syringe Inject 1 mL (140 mg total) under the skin every 14 (fourteen) days 2 mL 11 01/14/2025 Active Active Problems Problem Noted Date Diagnosed Date Palpitations 12/03/2024 Other chest pain 12/03/2024 Hypercholesteremia 12/03/2024 Family history of early CAD 12/03/2024 Bunion of great toe of right foot [...] Sign Reading Time Taken Comments Blood Pressure 126/78 01/14/2025 8:49 AM CDT Pulse 80 01/14/2025 8:49 AM CDT Temperature 38.8 C (101.9 F) 08/01/2024 7:43 PM CHIEF INFORMATION SECURITY OFFICER Respiratory Rate 18 01/14/2025 8:49 AM CDT Oxygen Saturation 98% 01/14/2025 8:49 AM CDT Inhaled Oxygen Concentration - - Weight 82.6 kg (182 lb) 01/14/2025 8:49 AM CDT Height 157.5 cm (5' 2) 01/14/2025 8:49 AM CDT Body Mass Index 33.29 01/14/2025 8:49 AM CDT Plan of Treatment Not on file Medical Devices Implanted Type Area Club Lounge Attendant Device Identifier Shelf Expiration Date Model / Serial / Lot [employer] Staple Bone Lapiplasty Speedplate Strl Rapid Compress Sk51 - [id number] Implanted:Qty: 1 on 04/02/2024 by Carla Nayak DPM at [facility] Right: First Toe [employer] 10/28/2028 SK51 / / [id number] [employer] Staple Bone Lapiplasty Speedplate Strl Rapid Compress Sk53 - Sn/A - [id number] Implanted:Qty: 1 on 04/02/2024 by Carla Nayak DPM at [facility] Right: First Toe [employer] 08/18/2028 SK53 / N/A / [id number] [employer] Max Vpc 2.5mm 16mm Cannulated Compression Headless Full Thread [id number] - [id number] Implanted:Qty: 1 on 04/02/2024 by Carla Nayak DPM at [facility] Right: First Toe [employer] [id number] / / Procedures Procedure Name Priority Date/Time Associated Diagnosis Comments POCT LIPID PANEL Routine 01/14/2025 9:04 AM CDT Hypercholesteremi a TRANSTHORACIC ECHO (TTE) COMPLETE W DOPPLER/CF WO CONTRAST Routine 12/22/2024 1:53 PM CDT Palpitations Other chest pain ELECTROCARDIOGRAM REPORT Routine 025 1:47 PM CDT Palpitations EXTENDED/RETIREMENT HOLTER PATCH (>48 HOURS UP TO 7 DAYS) Routine 12/03/2024 11:29 AM CDT Palpitations POCT LIPID PANEL Routine 12/03/2024 11:0 3 AM CDT Lipid screening from Last 3 Months Results * (ABNORMAL) POCT lipid panel (01/14/2025 9:04 AM CDT) Cholesterol, POC 379 <200 MG/DL HDL, POC 42 >=40 mg/dL Triglycerides, POC 393(A) <=149 mg/dL LDL Cholesterol POC 259(A) <=129 mg/dL Chol/HDL Ratio, POC 9.0 NONE Non-HDL Cholesterol, POC 337 NONE mg/dL Cholesterol Total, POC 379(A) 30 - 199 mg/dL Capillary blood 01/14/2025 9:04 AM CDT us Joshua Rosario MD POINT OF CARE TEST O RDERABLES Final Result * TRANSTHORACIC ECHO (TTE) COMPLETE W DOPPLER/CF WO CONTRAST (12/22/2024 1:53 PM CDT) EF Mod BP 64 % CONS SCIMAGE Anatomical Region Laterality Modality Ultrasound 12/22/2024 1:25 PM CDT Narrative 12/22/2024 2:42 PM CDT [facility] [address], [place] [address] [address] [facility] [address], [place] [address] [phone] P:[phone] Echocardiographic Report Patient Name: ANGY OROURKE J : 1985 Study Date: 12/22/2024 1:25:29 PM Gender: F Tech: [facility] Location: [facility] Provider: JOSHUA ROSARIO Height(Cm): 157 BSA: 1.88 Weight(Kg): 80.7 Heart Rate: 65 BP: 130 / 82 Quality: Good Order Provider: JOSHUA ROSARIO PROCEDURES: Echocardiographic Report: Transthoracic echocardiogram with complete 2D, M-Mode, and color Doppler examination. With Strain Analysis. INDICATIONS: Chest Pain and Palpitations. MEASUREMENTS: 2D/MM Value Range Doppler Value Range EF Mod BP 64 % [ 54 - 74 ] LUDWIN Vmax 1.96 cm2 [ 2.00 - 4.00 ] EF Teich MM 72 % [ 54 - 74 ] AV Mean PG 4 mmHg LVIDd 2D 4.68 cm [ 3.80 - 5.20 ] AV Peak Raul 1.36 m/s [ 1.00 - 1.70 ] LVIDd MM 4.67 cm [ 3.80 - 5.20 ] AV Peak PG 7 mmHg LVIDs 2D 3.12 cm [ 2.20 - 3.50 ] AV VTI 28.66 cm LVIDs MM 2.77 cm [ 2.20 - 3.50 ] LVOT Diam 2.00 cm [ 1.70 - 2.10 ] LVPWd 2D 0.80 cm [ 0.60 - 0.90 ] LVOT Peak Raul 0.88 m/s [ 0.70 - 1.10 ] LVPWd MM 0.95 cm [ 0.60 - 0.90 ] LVOT VTI 18.66 cm IVSd 2D 0.83 cm [ 0.60 - 0.90 ] MV E Peak Raul 0.95 m/s [ 0.60 - 1.30 ] IVSd MM 0.95 cm [ 0.60 - 0.90 ] MV A Peak Raul 0.75 m/s [ 1.00 - 1.20 ] LA Dimension 2D 3.92 cm [ 2.70 - 3.80 ] MV Mean PG 2 mmHg [ 0 - 5 ] LA Dimension MM 3.86 cm [ 2.70 - 3.80 ] MV PHT 54 msec [ 20 - 100 ] AoR Diam 2D 2.60 cm [ 2.70 - 3.70 ] MVA PHT 4.10 cm2 [ 2.00 - 4.00 ] AoR Diam MM 2.65 cm [ 2.70 - 3.70 ] MV Decel Time 175 msec [ 104 - 258 ] LA Volume Index 34 cc/m2 [ 16 - 34 ] PV Peak Raul 0.87 m/s [ 0.40 - 0.80 ] TR Peak Raul 2.23 m/s [ 1.00 - 2.80 ] TR Peak PG 20 mmHg RVSP 22.90 mmHg [ 10.00 - 36.00 ] E` 0.16 m/s E/E` 6 2D/MM Value Range Doppler Value Range - FINDINGS: Interpretation Site: Exam was interpreted at home. Left Ventricle: Ejection fraction is measured at 64 %. Global Longitudinal Strain is -20 %. The left ventricle is normal in size and systolic function. The left ventricular ejection fraction is visually estimated to be 60-65%. Right Ventricle: Normal right ventricular size. Normal right ventricular systolic function. Left Atrium: The left atrium is normal in size. Right Atrium: The right atrium is normal in size. Atrial Septum: Normal atrial septum. Mitral Valve: The mitral valve is normal. There is trace mitral regurgitation. Aortic Valve: Normal appearance of the aortic valve. Tricuspid Valve: Estimated peak RVSP is 23 mmHg. The tricuspid valve is normal. There is trace tricuspid regurgitation. Pulmonic Valve: The pulmonic valve is grossly normal. There is trace pulmonic valve regurgitation. Pericardium: Normal pericardium with no significant pericardial effusion. Aorta: The aortic root at the level of the sinus of Valsalva measures 2.6 cm in diameter. IVC: Normal size and normal respiratory collapse consistent with normal right atrial pressure (<5 mmHg). CONCLUSIONS: Normal 2D/Doppler-echocardiographic study with normal left ventricular function and no significant valvular abnormalities. Electronically Signed By: Dr. Frank Tillman 12/22/2024 2:40:53 PM CDT Procedure Note Frank Tillman MD - 12/22/2024 [facility] [address], [place] [address] [address] [facility] [address], [place] [address] P:[phone] P:[phone] Echocardiographic Report Patient Name: ANGY OROURKE J : 1985 Study Date: 12/22/2024 1:25:29 PM Gender: F Tech: [facility] Location: [facility] Provider: JOSHUA ROSARIO Height(Cm): 157 BSA: 1.88 Weight(Kg): 80.7 Heart Rate: 65 BP: 130 / 82 Quality: Good Order Provider: JOSHUA ROSARIO PROCEDURES: Echocardiographic Report: Transthoracic echocardiogram with complete 2D, M-Mode, and color Dopplerexamination. With Strain Analysis. INDICATIONS: Chest Pain and Palpitations. MEASUREMENTS: 2D/MM Value Range Doppler ValueRange EF Mod BP 64 % [ 54 - 74 ] LUDWIN Vmax 1.96cm2 [ 2.00 - 4.00 ] EF Teich MM 72 % [ 54 - 74 ] AV Mean PG 4mmHg LVIDd 2D 4.68 cm [ 3.80 - 5.20 ] AV Peak Raul 1.36m/s [ 1.00 - 1.70 ] LVIDd MM 4.67 cm [ 3.80 - 5.20 ] AV Peak PG 7mmHg LVIDs 2D 3.12 cm [ 2.20 - 3.50 ] AV VTI 28.66cm LVIDs MM 2.77 cm [ 2.20 - 3.50 ] LVOT Diam 2.00 cm[ 1.70 - 2.10 ] LVPWd 2D 0.80 cm [ 0.60 - 0.90 ] LVOT Peak Raul 0.88m/s [ 0.70 - 1.10 ] LVPWd MM 0.95 cm [ 0.60 - 0.90 ] LVOT VTI 18.66cm IVSd 2D 0.83 cm [ 0.60 - 0.90 ] MV E Peak Raul 0.95m/s [ 0.60 - 1.30 ] IVSd MM 0.95 cm [ 0.60 - 0.90 ] MV A Peak Raul 0.75m/s [ 1.00 - 1.20 ] LA Dimension 2D 3.92 cm [ 2.70 - 3.80 ] MV Mean PG 2 mmHg[ 0 - 5 ] LA Dimension MM 3.86 cm [ 2.70 - 3.80 ] MV PHT 54 msec[ 20 - 100 ] AoR Diam 2D 2.60 cm [ 2.70 - 3.70 ] MVA PHT 4.10cm2 [ 2.00 - 4.00 ] AoR Diam MM 2.65 cm [ 2.70 - 3.70 ] MV Decel Time 175msec [ 104 - 258 ] LA Volume Index 34 cc/m2 [ 16 - 34 ] PV Peak Raul 0.87m/s [ 0.40 - 0.80 ] TR Peak Raul 2.23 m/s [ 1.00 - 2.80 ] TR Peak PG 20 mmHg RVSP 22.90 mmHg [ 10.00 - 36.00 ] E` 0.16 m/s E/E` 6 2D/MM Value Range Doppler ValueRange - FINDINGS: Interpretation Site: Exam was interpreted at home. Left Ventricle: Ejection fraction is measured at 64 %. Global Longitudinal Strain is -20%. The left ventricle is normal in size and systolic function. The left ventricularejection fraction is visually estimated to be 60-65%. Right Ventricle: Normal right ventricular size. Normal right ventricular systolicfunction. Left Atrium: The left atrium is normal in size. Right Atrium: The right atrium is normal in size. Atrial Septum: Normal atrial septum. Mitral Valve: The mitral valve is normal. There is trace mitral regurgitation. Aortic Valve: Normal appearance of the aortic valve. Tricuspid Valve: Estimated peak RVSP is 23 mmHg. The tricuspid valve is normal. There istrace tricuspid regurgitation. Pulmonic Valve: The pulmonic valve is grossly normal. There is trace pulmonic valveregurgitation. Pericardium: Normal pericardium with no significant pericardial effusion. Aorta: The aortic root at the level of the sinus of Valsalva measures 2.6 cm indiameter. IVC: Normal size and normal respiratory collapse consistent with normal rightatrial pressure (<5 mmHg). CONCLUSIONS: Normal 2D/Doppler-echocardiographic study with normal left ventricularfunction and no significant valvular abnormalities. Electronically Signed By: Dr. Frank Tillman 12/22/2024 2:40:53 PM CDT us Joshua Rosario MD CV ECHO PROCEDURES F inal Result * Electrocardiogram Report (12/03/2024 1:47 PM CDT) us Joshua Rosario MD ECG ORDERABLES Suzan l Result * Extended/Long-Term Holter Patch (>48 hours up to 7 days) (12/03/2024 11:29 AM CDT) Anatomical Region Laterality Modality Electrocardiogra phy Narrative 12/15/2024 12:37 PM CDT AMBULATORY DIESEL PLANT OPERATOR REPORT Patient Name: Angy Orourke Date of : 1985 Requesting Physician: Dr. Rosario Date of interpretation: 12/15/24 Type of monitor : Holter Date of the study/Enrollment period: 12/03/2024 - 12/05/2024 Indication: Palpitations Quality of the study: Good Interpretation: Patient's predominant rhythm is sinus. Occasional sinus tachycardia. Rare sinus bradycardia. No other arrhythmias. There were no high-grade AV blocks or significant pauses. Ventricular ectopy burden less than 1%. There were no supraventricular ectopy found in his study. Patient trigger correlated with sinus tachycardia at a heart rate of 108 beats per minute. Frank Tillman MD 12/15/24 Voice recognition software was used to complete this document, therefore, shirt ironer variances may occur. Procedure Note Frank Tillman MD - 12/15/2024 AMBULATORY DIESEL PLANT OPERATOR REPORT Patient Name: Angy Orourke Date of : 1985 Requesting Physician: Dr. Rosario Date of interpretation: 12/15/24 Type of monitor : Holter Date of the study/Enrollment period: 12/03/2024 - 12/05/2024 Indication: Palpitations Quality of the study: Good Interpretation: Patient's predominant rhythm is sinus. Occasional sinus tachycardia.Rare sinus bradycardia. No other arrhythmias. There were no high-gradeAV blocks or significant pauses. Ventricular ectopy burden less than 1%.There were no supraventricular ectopy found in his study. Patient trigger correlated with sinus tachycardia at a heart rate of 108beats per minute. Frank Tillman MD 12/15/24 Voice recognition software was used to complete this document, therefore,shirt ironer variances may occur. Joshua Rosario MD [facility] PROCEDURES Final Result * (ABNORMAL) POCT lipid panel (12/03/2024 11:03 AM CDT) Cholesterol, POC 338 <200 MG/DL HDL, POC 59 >=40 mg/dL Triglycerides, POC 349(A) <=149 mg/dL LDL Cholesterol POC 210(A) <=129 mg/dL Chol/HDL Ratio, POC 5.8 NONE Non-HDL Cholesterol, POC 280 NONE mg/dL Cholesterol Total, POC 338(A) 30 - 199 mg/dL Capillary blood 12/03/2024 1 1:03 AM CDT Joshua Rosario MD POINT OF CARE TEST O RDERABLES Final Result from Last 3 Months Insurance [facility] CLAIMS Care Teams Biscuit Machine Operator Relationship Specialty Start Date End Date Mary Telles NP PCP - General Family Medicine 04/29/23 Carla Nayak DPM [address] [place] [id number] Consulting Physician Foot and Ankle Surg 04/02/24
--- OUTSIDE RECORDS SUMMARY | 2025-01-21 11:40 | XMS_ITS | Clinical Summary ---
Author Organization [facility] [address] Address [address] [place] [address] Care Team Providers Care Scientific Associate Name Role Phone Mary Telles NP Primary Care Provider [phone] Carla Nayak DPM Unavailable [phone] Allergies Active Allergy Reactions Criticality Noted Date [...] Description 01/14/2025 8:45 AM CDT Office Visit [facility] Cardiology [address] [place] [address] [place] [phone] Joshua Rosario MD Hypercholesteremia (Primary Dx); Palpitations; Other chest pain; Family history of early CAD 12/22/2024 1:00 PM CDT Ancillary Procedure [facility] Cardiology [address] [place] [address] [place] [phone] Palpitations; Other chest pain 12/16/2024 Results Follow-Up [facility] Cardiology [address] [place] [phone] Joshua Rosario MD Extended/Custodial Holter Patch (>48 hours up to 7 days), Transthoracic Echo (TTE) Complete W Doppler/CF 12/03/2024 11:30 AM CDT Ancillary Procedure [facility] Cardiology [address] [place] [address] [place] [phone] Palpitations 12/03/2024 11:00 AM CDT Office Visit [facility] Cardiology [address] [place] [address] [place] [phone] Joshua Roasrio MD Lipid screening (Primary Dx); Palpitations; Other chest pain; Hypercholesteremia; Family history of early CAD 12/02/2024 Orders Only [facility] [place] [facility] [address] [place] [address] [place] [phone] Mary Telles, EDGE SETTER Sacroiliitis (Primary Dx) from Last 3 Months [...] (postoperative nausea and vomiting) HLD (hyperlipidemia) Anxiety Family History Medical History Relation Name Comments Hyperlipidemia Brother Heart attack Mother Relation Name Status Comments Brother Maternal Grandmother Mother Social History Tobacco Use Types Packs/Day Years [...] 38.8 C (101.9 F) 08/01/2024 7:43 PM PHARMACY RESOURCE TECH Respiratory Rate 18 01/14/2025 8:49 AM CDT Oxygen Saturation 98% 01/14/2025 8:49 AM CDT Inhaled Oxygen Concentration - - Weight 82.6 kg (182 lb) 01/14/2025 8:49 AM CDT Height 157.5 cm (5' 2) 01/14/2025 8:49 AM CDT Body Mass Index 33.29 01/14/2025 8:49 AM CDT Plan of Treatment Health Maintenance Due Date Last Done Comments Breast Cancer Screening-Mammogram 1985 Depression Screening 1985 Hepatitis C Screening 1985 Hepatitis B Screening 10/19/2001 Regular Well Visit/Exam 18-64 10/19/2001 Varicella Vaccines (1 of 2 - 13+ 2-dose series) 05/03/2015 Covid-19 Vaccine ( - season) 2024 04/09/2021, 08/03/2020, 07/13/2020 Influenza Vaccine (#1) 2025 , 04/07/2020, 05/14/2019, Additional history exists DTaP/Tdap/Td Vaccine (4 - Td or Tdap) 09/03/2032 09/03/2022, 09/23/2016, 12/15/2006, Additional history exists HPV Vaccines Completed 07/17/2011, 08/2008, 12/15/2006 Pneumococcal vaccine <65 Aged Out No longer eligible based on patient's age to complete this topic Medical Devices Implanted Type Area Human Resources Administrator Device Identifier Shelf Expiration Date Model / Serial / Lot [employer] Staple Bone Lapiplasty Speedplate Strl Rapid Compress Sk51 - [id number] Implanted:Qty: 1 on 04/02/2024 by Carla Nayak DPM at [facility] Right: First Toe [employer] 10/28/2028 SK51 / / [id number] [employer] Staple Bone Lapiplasty Speedplate Strl Rapid Compress Sk53 - Sn/A - [id number] Implanted:Qty: 1 on 04/02/2024 by Carla Nayak DPM at [facility] Right: First Toe [employer] 08/18/2028 SK53 / N/A / [id number] [employer] Max Vpc 2.5mm 16mm Cannulated Compression Headless Full Thread [id number] - [id number] Implanted:Qty: 1 on 04/02/2024 by Carla Nayak DPM at [facility] Right: First Toe [employer] [id number] / / Procedures Procedure Name Priority Date/Time Associated Diagnosis Comments POCT LIPID PANEL Routine 01/14/2025 9:04 AM CDT Hypercholesteremi a TRANSTHORACIC ECHO (TTE) COMPLETE W DOPPLER/CF WO CONTRAST Routine 12/22/2024 1:53 PM CDT Palpitations Other chest pain ELECTROCARDIOGRAM REPORT Routine 025 1:47 PM CDT Palpitations EXTENDED/ALF HOLTER PATCH (>48 HOURS UP TO 7 [...] 30 - 199 mg/dL Capillary blood 01/14/2025 9 :04 AM CDT us Sukheer Melissa Rosario MD POINT OF CARE TEST O RDERABLES Final Result * TRANSTHORACIC ECHO (TTE) COMPLETE W DOPPLER/CF WO CONTRAST (12/22/2024 1:53 PM CDT) EF Mod BP 64 % CONS SCIMAGE Anatomical Region Laterality Modality Ultrasound 12/22/2024 1:25 PM CDT Narrative 12/22/2024 2:42 PM CDT [facility] [address], [place] [address] [address] [facility] [address], [place] [address] P:[phone] P:[phone] Echocardiographic Report Patient Name: ANGY OROURKE J : 1985 Study Date: 12/22/2024 1:25:29 PM Gender: F Tech: [facility] Location: [facility] Provider: JOSHUA ROSARIO Height(Cm): 157 BSA: 1.88 [...] Procedure Note Frank Tillman MD - 12/22/2024 [facility]iology [address], [place] [address] [address] [facility] [address], [place] [address] P:[phone] P:[phone] Echocardiographic Report Patient Name: ANGY OROURKE J : 1985 Study Date: 12/22/2024 1:25:29 PM Gender: F Tech: [facility] Location: [facility] Provider: JOSHUA ROSARIO Height(Cm): 157 BSA: 1.88 [...] MD ECG ORDERABLES Suzan l Result * Extended/Custodial Holter Patch (>48 hours up to 7 days) (12/03/2024 11:29 AM CDT) Anatomical Region Laterality Modality Electrocardiogra phy Narrative 12/15/2024 12:37 PM CDT AMBULATORY REGISTERED NURSE MATERNITY REPORT Patient Name: Angy Orourke Date of [...] was used to complete this document, therefore, sports commentator variances may occur. Procedure Note Frank Tillman MD - 12/15/2024 AMBULATORY REGISTERED NURSE MATERNITY REPORT Patient Name: Angy Orourke Date of [...] software was used to complete this document, therefore,sports commentator variances may occur. Joshua Rosario MD CV [...] Final Result from Last [address] [place] [place] [phone] [facility] CLAIMS Care Teams Scientific Associate Relationship Specialty Start Date End Date Mary Telles NP PCP - General Family Medicine 04/29/23 Carla Nayak DPM [address] [place] [id number] Consulting Physician Foot and Ankle Surg 04/02/24
--- NOTE | 2025-01-21 11:59 | ECG_ITS ---
Test Date: 2025-01-21 12:06:34 Measurements Intervals Alger Rate: 73 P: 38 DC: 157 QRS: 38 QRSD: 88 T: 29 QT: 381 QTc: 422 Interpretive Statements SINUS RHYTHM NORMAL ELECTROCARDIOGRAM Compared to ECG 12/02/2024 15:29:28 ST (T wave) deviation no longer present Electronically Signed On 01-21-2025 14:21:40 CDT by Jacek Munguia M.D.
--- OUTSIDE RECORDS SUMMARY | 2025-01-21 12:36 | XMS_ITS | Continuity of Care Document ---
Author Organization [facility] Address [address] [place] [address] Phone Care Team Providers Care Landing Gear Mechanic Name Role Phone Sandy San MD Unavailable Unavailable Allergies, Adverse Reactions, Alerts Substance Reaction Status Criticality OXYCODONE HCL ItchyEyes, Hives, Rash Active No I nformation acetaminophen ItchyEyes, Hives, Rash Active No I nformation Medications Medication Instructions Dosage Effective Dates (start - stop) Status Comments atorvastatin 10 mg tablet take 1 tablet by oral route every day 10 MG - Active lisinopril 20 mg tablet take 1 tablet by oral route every day 20 MG - Active Procedures Procedure Date Visual Field Examination W I And R Exten ded Uni Or Bi OFFICE/OUTPATIENT VISIT, NEW Advance Directives Directive Yes / No Effective Date File Name No Information Encounters Encounter Description Practice Location Reason(s) For Visit Diagnoses Date Provider Providers Copied on Encounter OFFICE/OUTPA TIENT VISIT, [facility] Physician s, [address] [place], [address], [place] tel:[phone] WALTER [place] blurred vision (chief complaint) Concussion without loss of consciousness, initial encounterHeadaches due to old head injury 0 Jaswinder [address]gado. [address], [place], [place], [id number] , [place]. tel: [phone] Referring Provider: [address], [place], [address] . tel:[phone] Family History Family Member Type Diagnosis Age [...] cholesterol Payers Payer name Insurance type Covered libertarian ID Bowen oglesby(s) [place] [employer] [id number] Social History Type Description Quantity Date Captured [...]
--- OUTSIDE RECORDS SUMMARY | 2025-01-21 12:36 | XMS_ITS | Clinical Summary ---
Author Organization [facility] [address] Address [address] [place] [address] Care Team Providers Care Bruise Trimmer Name Role Phone Mary Telles NP Primary Care Provider [phone] Carla Nayak DPM Unavailable [phone] Allergies Active Allergy Reactions Criticality Noted Date [...] CDT Office Visit [facility] [address] [place] [address] [place] [phone] Joshua Rosario MD Hypercholesteremia (Primary Dx); Palpitations; Other chest pain; Family history of early CAD 12/22/2024 1:00 PM CDT Ancillary Procedure [facility] [address] [place] [address] [place] [phone] Palpitations; Other chest pain 12/16/2024 Results Follow-Up [facility] [address] [facility] [address] [place] [phone] Joshua Rosario MD Extended/Correction Holter Patch (>48 hours up to 7 days), Transthoracic Echo (TTE) Complete W Doppler/CF 12/03/2024 11:30 AM CDT Ancillary Procedure [facility] [address] [place] [address] [place] [phone] Palpitations 12/03/2024 11:00 AM CDT Office Visit [facility] [address] [place] [address] [place] [phone] Joshua Rosario MD Lipid screening (Primary Dx); Palpitations; Other chest pain; Hypercholesteremia; Family history of early CAD 12/02/2024 Orders Only [facility] [address] [place] [address] [place] [id number] Mary Telles, HOME HEALTH SCHEDULER Sacroiliitis (Primary Dx) from Last 3 Months [...] 38.8 C (101.9 F) 08/01/2024 7:43 PM DESK EDITOR Respiratory Rate 18 01/14/2025 8:49 AM CDT [...] this topic Medical Devices Implanted Type Area Locker Room Attendant Device Identifier Shelf Expiration Date Model / Serial / Lot [employer] Staple Bone Lapiplasty Speedplate Strl Rapid Compress Sk51 - [id number] Implanted:Qty: 1 on 04/02/2024 by Carla Nayak DPM at [facility] Right: First Toe [employer] 10/28/2028 SK51 / / [id number] [employer] Staple Bone Lapiplasty Speedplate Strl Rapid Compress Sk53 - Sn/A - [id number] Implanted:Qty: 1 on 04/02/2024 by Carla aNyak DPM at [facility] Right: First Toe [employer] 08/18/2028 SK53 / N/A / [id number] [employer] Max Vpc 2.5mm 16mm Cannulated Compression Headless Full Thread [id number] - [id number] Implanted:Qty: 1 on 04/02/2024 by Carla Nayak DPM at [facility] Right: First Toe [employer] [id number] / / Procedures Procedure Name Priority Date/Time [...] PM CDT Narrative 12/22/2024 2:42 PM CDT [facility] [address], [place] [address] [address] [facility] [address], [place] [address] P:[phone] P:[phone] Echocardiographic Report Patient Name: ANGY OROURKE J : 1985 Study Date: 12/22/2024 1:25:29 PM Gender: F Tech: PHUONG Location: [facility] Provider: JOSHUA ROSARIO Height(Cm): 157 BSA: [...] Group Cardiology [address], [place] [address] [address] [facility] [address], [place] [address] P:[phone] P:[phone] Echocardiographic Report Patient Name: ANGY OROURKE J : 1985 Study Date: 12/22/2024 1:25:29 PM Gender: F Tech: [facility] Location: [facility] Provider: JOSHUA ROSARIO Height(Cm): 157 BSA: [...] MD ECG ORDERABLES Suzan l Result * Extended/Correction Holter Patch (>48 hours up to 7 days) (12/03/2024 11:29 AM CDT) Anatomical Region Laterality Modality Electrocardiogra phy Narrative 12/15/2024 12:37 PM CDT [facility] ATTEND[facility] REPORT Patient Name: Angy Orourke Date of [...] was used to complete this document, therefore, physician ophthalmologist variances may occur. Procedure Note Frank Tillman MD - 12/15/2024 [facility] ATTENDANT REPORT Patient Name: Angy Orourke Date of [...] software was used to complete this document, therefore,physician ophthalmologist variances may occur. Joshua Rosario MD CV [...] from Last [address] [address] [place] [id number] [facility] CLAIMS Care Teams Bruise Trimmer Relationship Specialty Start Date End Date Mary Telles NP PCP - General Family Medicine 04/29/23 Carla Nayak DPM [address] [place] [phone] Consulting Physician Foot and Ankle Surg 04/02/24
--- OUTSIDE RECORDS SUMMARY | 2025-01-21 12:37 | XMS_ITS | Referral Summary ---
Author Organization [facility] [address] [place] [address] [address] [facility] [address] [place] [address] Care Team Providers Care Rewind Operator Name Role Phone Mary Telles SAP CONSULTANT Primary Care Provider [phone] Crala Nayak DPM Unavailable [phone] Encounters Date Type Department Care Team Description 01/14/2025 8:45 AM CDT Office Visit [facility]iology [address] [place] [address] [place] [phone] Joshua Rosario MD Hypercholesteremia (Primary Dx); Palpitations; Other chest pain; Family history of early CAD 12/22/2024 1:00 PM CDT Ancillary Procedure [facility] [address] [place] [phone] Palpitations; Other chest pain 12/16/2024 Results Follow-Up [facility] [address] [place] [address] [address] [place] [phone] Joshua Rosario MD Extended/Mcc Holter Patch (>48 hours up to 7 days), Transthoracic Echo (TTE) Complete W Doppler/CF 12/03/2024 11:30 AM CDT Ancillary Procedure [facility] [address] [place] [phone] Palpitations 12/03/2024 11:00 AM CDT Office Visit 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 Respiratory Rate 18 01/14/2025 8:49 AM CDT Oxygen Saturation 98% 01/14/2025 8:49 AM CDT Inhaled Oxygen Concentration - - Weight 82.6 kg (182 lb) 01/14/2025 8:49 AM CDT Height 157.5 cm (5' 2) 01/14/2025 8:49 AM CDT Body Mass Index 33.29 01/14/2025 8:49 AM CDT Plan of Treatment Not on file Medical Devices Implanted Type Area Field Marketing Specialist Device Identifier Shelf Expiration Date Model / Serial / Lot [employer] Staple Bone Lapiplasty Speedplate Strl Rapid Compress Sk51 - [id number] Implanted:Qty: 1 on 04/02/2024 by Carla Nayak DPM at [facility] Right: First Toe [employer] 10/28/2028 SK51 / / [id number] [employer] Staple Bone Lapiplasty Speedplate Strl Rapid Compress Sk53 - Sn/A - [id number] Implanted:Qty: 1 on 04/02/2024 by Carla Nayak DPM at [facility] Right: First Toe [employer] 08/18/2028 SK53 / N/A / [id number] [employer] Max Vpc 2.5mm 16mm Cannulated Compression Headless Full Thread [id number] - [id number] Implanted:Qty: 1 on 04/02/2024 by Carla Nayak DPM at [facility] Right: First Toe [employer] [id number] / / Procedures Procedure Name Priority Date/Time Associated Diagnosis Comments POCT LIPID PANEL Routine 01/14/2025 9:04 AM CDT Hypercholesteremi a TRANSTHORACIC ECHO (TTE) COMPLETE W DOPPLER/CF WO CONTRAST Routine 12/22/2024 1:53 PM CDT Palpitations Other chest pain ELECTROCARDIOGRAM REPORT Routine 025 1:47 PM CDT Palpitations EXTENDED/SKILLED NURSING HOLTER PATCH (>48 HOURS UP TO 7 [...] Narrative 12/22/2024 2:42 PM CDT [facility] Cardiology [address], [place] [address] [address] [facility] [address], [place] [address] P:[phone] P:[phone] Echocardiographic Report Patient Name: ANGY ROOURKE J : 1985 Study Date: 12/22/2024 1:25:29 PM Gender: F Tech: [facility] Location: [facility] Provider: JOSHUA ROSARIO Height(Cm): 157 BSA: [...] Procedure Note Frank Tillman MD - 12/22/2024 [facility] Cardiology [address], [place] [address] [address] [facility] [address], [place] [address] P:[phone] P:[phone] Echocardiographic Report Patient Name: ANGY OROURKE J : 1985 Study Date: 12/22/2024 1:25:29 PM Gender: F Tech: [facility] Location: [facility] Provider: JOSHUA ROSARIO Height(Cm): 157 BSA: [...] significant valvular abnormalities. Electronically Signed By: Dr. Frakn Tillman 12/22/2024 2:40:53 PM CDT us Joshua Rosario MD CV ECHO PROCEDURES F inal Result * Electrocardiogram Report (12/03/2024 1:47 PM CDT) us Joshua Rosario MD ECG ORDERABLES Suzan l Result * Extended/Mcc Holter Patch (>48 hours up to 7 days) (12/03/2024 11:29 AM CDT) Anatomical Region Laterality Modality Electrocardiogra phy Narrative 12/15/2024 12:37 PM CDT [facility] REPORT Patient Name: Angy Orourke Date of [...] was used to complete this document, therefore, posting specialist variances may occur. Procedure Note Frank Tillman MD - 12/15/2024 [facility] REPORT Patient Name: Angy Orourke Date of [...] software was used to complete this document, therefore,posting specialist variances may occur. Joshua Rosario MD CV [...] Final Result from Last 3 Months Insurance [facility] CLAIMS Care Teams Rewind Operator Relationship Specialty Start Date End Date Mary Telles NP PCP - General Family Medicine 04/29/23 Carla Nayak DPM [address] [place] [id number] Consulting Physician Foot and Ankle Surg 04/02/24
--- NOTE | 2025-01-21 12:49 | ED_ITS ---
HPI - General Adult General Chief complaint: Neuro Symptoms/Deficit Stated complaint: L arm/leg tingling, dizzy since last night Time Seen by Provider: 01/21/25 12:01 History of Present Illness HPI narrative: 39-year-old female presenting to the emergency department for evaluation for multiple complaints. Patient states she does have a history of anxiety and felt that she was having a panic attack that was [place] Patient did have multiple symptoms such as rapid heart rate and anxiety that are typical with her panic attacks. Patient states she is also having some difficulty swallowing at the time. Patient also did complain of some left-sided chest pain. Related Data Home Medications ?Medication ?Instructions ?Recorded ?Confirmed ?Last Taken ?Type multivitamin (Daily Multi-Vitamin 1 tablet PO DAILY 01/12/25 01/12/25 Unknown History tablet) progesterone micronized 100 mg 100 mg PO DAILY 01/12/25 01/12/25 Unknown History capsule propranolol 10 mg tablet 10 mg PO DAILY 01/12/25 01/12/25 Unknown History Allergies Allergy/AdvReac Type Severity Reaction Status Date / Time oxycodone (From Percocet) Allergy Hives Verified 01/21/25 11:57 Review of Systems 2 Review of Systems: All systems reviewed & are unremarkable except as noted in HPI and below PMFSH Past Medical History Medical History Urine finding Rotator cuff arthropathy of right shoulder Arthritis GERD (gastroesophageal reflux disease) Headache Hyperlipidemia Anxiety PTSD (post-traumatic stress disorder) Surgical History Surgical History History of bunionectomy H/O: hysterectomy No pertinent past surgical history Family History Family History Mother Acute myocardial infarction Congestive heart failure Grandparent Acute myocardial infarction Cerebrovascular accident Diabetes mellitus Hypertension Sibling Hypertension Social History Social History Smoking packs per day: 0.5 Smoking cigarettes per day: 10.0 Years smoked: 10 Smoking pack-years: 5.00 Smoking status: Former smoker Tobacco type: cigarettes Alcohol intake: never Substance use: current Substance use type: marijuana Other substance usage details: Gummis Last use: 01/10/2025 Do You Feel Safe in your Home?: Yes Lack of Transportation: No Lack of Food: Never True Current Housing: I Have Housing Concerned About Future Housing: No Difficulty Paying Gas/Electric Bills: No Difficulty Paying for Meds: No Currently Unemployed: No Education: Bachelor's Degree Difficulty w/ Childcare or Family Care: No Living arrangements: with family Gender identity (if verbalized by the patient): Female Spiritual care concerns: No Exam 2 Narrative: APPEARANCE: Well appearing, no pain, no distress, well-nourished. HEAD: normocephalic, atraumatic. EYES: PERRLA/EOMI, conjunctivae clear. NOSE: Normal no drainage EARS:TMS clear with good light reflex. THROAT: Pharynx clear, no exudate. NECK: Supple. No adenopathy, no masses. RESPIRATORY: Airway patent, respirations nonlabored. Clear to auscultation bilaterally, no rales, rhonchi, wheezing. CARDIOVASCULAR: Regular rate and rhythm without murmurs rubs or gallops. ABDOMINAL: Soft, nontender, nondistended, normal bowel sounds MUSCULOSKELETAL: Moves all extremities. Strength/ROM intact, No edema, No calf tenderness. NEURO: Alert. Cranial nerves II through XII intact. Good gait. Good coordination SKIN: Warm, dry. Normal Color PSYCHIATRIC: Normal affect/mood. Course Vital Signs Vital signs: Vital Signs Temperature 98.2 F 01/21/25 11:48 Pulse Rate 72 01/21/25 11:48 Respiratory Rate 16 01/21/25 11:48 Blood Pressure 162/98 H 01/21/25 11:48 Pulse Oximetry 98 01/21/25 11:48 Oxygen Delivery Room Air 01/21/25 11:48 Temperature 98.2 F 01/21/25 11:48 Pulse Rate 86 01/21/25 14:31 Respiratory Rate 18 01/21/25 14:31 Blood Pressure 114/73 01/21/25 14:31 Pulse Oximetry 97 01/21/25 14:31 Oxygen Delivery Room Air 01/21/25 11:[address] [facility] Narrative Medical decision making narrative: 39-year-old female presents emergency department for evaluation for anxiety, left-sided chest pain. Patient is currently afebrile with no leukocytosis and hemoglobin of 13.9. Patient's INR 0.9 patient's D-dimer is not elevated at 0.36. No acute abnormalities on her CMP. Troponin was negative. UA was negative for infection. Patient was negative for influenza RSV and for COVID. Chest x-ray shows no acute cardiopulmonary abnormality and head CT was negative. Patient does feel improved after the anxiety medications. Low concern for ACS. Differential Diagnosis Differential Diagnosis: Anxiety, ACS, pleurisy pulmonary embolism, pneumonia, pneumothorax Vital Signs Vital Signs: Vital Signs Temperature 98.2 F 01/21/25 11:48 Pulse Rate 72 01/21/25 11:48 Respiratory Rate 16 01/21/25 11:48 Blood Pressure 162/98 H 01/21/25 11:48 Pulse Oximetry 98 01/21/25 11:48 Oxygen Delivery Room Air 01/21/25 11:48 Temperature 98.2 F 01/21/25 11:48 Pulse Rate 86 01/21/25 14:31 Respiratory Rate 18 01/21/25 14:31 Blood Pressure 114/73 01/21/25 14:31 Pulse Oximetry 97 01/21/25 14:31 Oxygen Delivery Room Air 01/21/25 11:48 Lab Data Lab results reviewed: Yes I reviewed the patient's lab results. 01/21/25 12:56 01/21/25 12:56 Labs: Lab Results 01/21/25 01/21/25 01/21/25 Range/Units 12:54 12:55 12:56 WBC 9.7 (4.5-10.0) K/mm3 RBC 4.65 (4.2-5.4) M/mm3 Hgb 13.9 (12.0-15.0) g/dL Hct 43.3 (37.0-47.0) % MCV 93.1 (80-100) fl MCH 29.9 (26-34) pg MCHC 32.1 (32-36) g/dl RDW 12.0 (11.5-14.5) % Plt Count 318 (150-375) k/mm3 MPV 9.9 (7.4-10.4) fl Immature Gran % (Auto) 0.3 (0-0.5) % Neut % (Auto) 59.7 (45.5-73.1) % Lymph % (Auto) 31.1 (18.3-44.2) % Cavalier % (Auto) 6.7 (2.6-8.5) % Eos % (Auto) 1.8 (0-4.4) % Baso % (Auto) 0.4 (0.2-1.2) % Lymph # (Auto) 3.02 (0.9-3.2) K/mm3 [place]alier # (Auto) 0.7 H (0.1-0.6) K/mm3 Eos # (Auto) 0.2 (0-0.3) K/mm3 Baso # (Auto) 0.0 (0.0-0.1) K/mm3 Abs Immat Gran (auto) 0.03 (0.00-0.031) K/mm3 Absolute Neuts (auto) 5.8 (1.3-6.7) K/mm3 Absolute Nucleated RBC 0.000 (0.0-0.012) K/mm3 Nucleated RBC % 0.0 (0.0-0.2) % PT 12.7 (11.1-14.7) Seconds INR 0.9 APTT 29.7 (22.3-36.8) Seconds D-Dimer 0.36 (<0.48) ug/mL Sodium (137-145) mmol/L Potassium (3.4-5.0) mmol/L Chloride (98-107) mmol/L Carbon Dioxide (22-30) mmol/L Anion Gap (4-12) mmol/L BUN (7-17) mg/dL Creatinine (0.7-1.0) mg/dL Estim Creat Clear Calc ml/min Estimated GFR (59 - ) Glucose (65-110) mg/dL Calcium (8.4-10.2) mg/dL Total Bilirubin (0.2-1.3) mg/dL AST (14-36) U/L ALT (6-35) U/L Alkaline Phosphatase (38-126) U/L Troponin I (0.000-0.034) ng/mL Total Protein (6.3-8.2) g/dL Albumin (3.5-5.1) g/dL Lipase (23-300) U/L Urine Color (Yellow) Urine Appearance (Clear) Urine pH (5.0-9.0) Ur Specific [place] (1.001-1.035) Urine Protein (Negative) mg/dL Urine Glucose (UA) (Negative) mg/dL Urine Ketones (Negative) mg/dL Ur Blood (Man) (Negative) Urine Nitrate (Negative) Urine Bilirubin (Negative) Urine Urobilinogen (<2.0) mg/dL Leukocyte Esterase Rfl (Negative) NIDHI/UL Influenza A (RT-PCR) Negative (Negative) Influenza B (RT-PCR) Negative (Negative) RSV (RT-PCR) Negative (Negative) SARS-CoV-2 RNA (RT-PCR) Negative (Negative) Group A Strep (PCR) Not detected (Negative) 01/21/25 Range/Units 12:56 WBC (4.5-10.0) K/mm3 RBC (4.2-5.4) M/mm3 Hgb (12.0-15.0) g/dL Hct (37.0-47.0) % MCV (80-100) fl MCH (26-34) pg MCHC (32-36) g/dl RDW (11.5-14.5) % Plt Count (150-375) k/mm3 MPV (7.4-10.4) fl Immature Gran % (Auto) (0-0.5) % Neut % (Auto) (45.5-73.1) % Lymph % (Auto) (18.3-44.2) % Cavalier % (Auto) (2.6-8.5) % Eos % (Auto) (0-4.4) % Baso % (Auto) (0.2-1.2) % Lymph # (Auto) (0.9-3.2) K/mm3 Cavalier # (Auto) (0.1-0.6) K/mm3 Eos # (Auto) (0-0.3) K/mm3 Baso # (Auto) (0.0-0.1) K/mm3 Abs Immat Gran (auto) (0.00-0.031) K/mm3 Absolute Neuts (auto) (1.3-6.7) K/mm3 Absolute Nucleated RBC (0.0-0.012) K/mm3 Nucleated RBC % (0.0-0.2) % PT (11.1-14.7) Seconds INR APTT (22.3-36.8) Seconds D-Dimer Cancelled (<0.48) ug/mL Sodium 137 (137-145) mmol/L Potassium 4.1 (3.4-5.0) mmol/L Chloride 101 (98-107) mmol/L Carbon Dioxide 28 (22-30) mmol/L Anion Gap 8 (4-12) mmol/L BUN 13 D (7-17) mg/dL Creatinine 1.33 H (0.7-1.0) mg/dL Estim Creat Clear Calc 50 ml/min Estimated GFR 44 L (59 - ) Glucose 106 (65-110) mg/dL Calcium 10.0 (8.4-10.2) mg/dL Total Bilirubin 0.6 (0.2-1.3) mg/dL AST 38 H (14-36) U/L ALT 28 (6-35) U/L Alkaline Phosphatase 46 (38-126) U/L Troponin I < 0.012 (0.000-0.034) ng/mL Total Protein 8.6 H (6.3-8.2) g/dL Albumin 4.5 (3.5-5.1) g/dL Lipase 67 (23-300) U/L Urine Color Yellow (Yellow) Urine Appearance Clear (Clear) Urine pH 7.0 (5.0-9.0) Ur Specific [place] 1.004 (1.001-1.035) Urine Protein Negative (Negative) mg/dL Urine Glucose (UA) Negative (Negative) mg/dL Urine Ketones Negative (Negative) mg/dL Ur Blood (Man) Negative (Negative) Urine Nitrate Negative (Negative) Urine Bilirubin Negative (Negative) Urine Urobilinogen 0.2 (<2.0) mg/dL Leukocyte Esterase Rfl Negative (Negative) NIDHI/UL Influenza A (RT-PCR) (Negative) Influenza B (RT-PCR) (Negative) RSV (RT-PCR) (Negative) SARS-CoV-2 RNA (RT-PCR) (Negative) Group A Strep (PCR) (Negative) Imaging Data Radiologist's impression: Impressions Head CT 01/21/25 12:45 Impression: No significant abnormality seen. Chest X-Ray 01/21/25 13:20 IMPRESSION: No acute cardiopulmonary pathology. ECG Data EKG #1: EKG Interpretation: normal rate, sinus rhythm, no ectopy, no ST changes, normal QRS and NL axis Discharge Plan Discharge Clinical Impression: Atypical chest pain, Anxiety Patient Disposition: Home Condition: Stable Instructions: Antibiotic Form, Chest Pain (DC), Anxiety (ED) Additional Instructions: Ativan as needed for anxiety control. Have close follow-up with your primary care physician for additional outpatient cardiac testing. You should also have a discussion regarding restarting your anxiety medications. If you have any worsening symptoms then please call or return to the emergency department. Patient Language: Yakut Prescriptions: New lorazepam [Ativan] 0.5 mg tablet 0.5 mg PO TID PRN (Reason: anxiety) Qty: 14 0RF No Action Repatha SureClick 140 mg/mL pen injector 140 mg subcut MONTHLY Qty: 2 1RF Patient Comments: hasnt started taking omeprazole magnesium 20 mg capsule,delayed release(DR/EC) 20 mg PO BID MDD 40 mg 30 Days Qty: 60 2RF progesterone micronized 100 mg capsule 100 mg PO DAILY propranolol 10 mg tablet 10 mg PO DAILY multivitamin [Daily Multi-Vitamin] Tablet 1 tablet PO DAILY scopolamine base 1 mg over 3 days patch 3 day 1 patch transdermal Q3D PRN (Reason: motion sickness) Qty: 10 2RF Follow-up/Referrals: Jacek Spring MD [Primary Care Provider] - Quality HEART score for chest pain patients History: slightly suspicious ECG: normal Age: < or = to 45 years Risk factors: 1 or 2 risk factors Troponin: < or = to 1x normal limit Heart score: 1
[2025-01-21 13:12] LABS: Hematocrit 43.3 % (37.0-47.0); Hemoglobin 13.9 g/dL (12.0-15.0); Immature Granulocyte Percent A 0.3 % (0-0.5); Lymphocytes Absolute Auto 3.02 K/mm3 (0.9-3.2); Mean Corpuscular HGB Conc 32.1 g/dl (32-36); Mean Corpuscular Hemoglobin 29.9 pg (26-34); Mean Corpuscular Volume 93.1 fl (80-100); Nucleated Red Blood Cells Absolute Auto 0.000 K/mm3 (0.0-0.012); Nucleated Red Blood Cells Perc 0.0 % (0.0-0.2); Platelet Count Result 318 k/mm3 (150-375); Red Blood Count 4.65 M/mm3 (4.2-5.4); White Blood Count 9.7 K/mm3 (4.5-10.0)
[2025-01-21 13:15] LABS: Add Urine Microscopic? NO; Appearance Urine Clear (Clear); Glucose Urine UA Negative (Negative); Leukocyte Esterase Ur Negative LEU/UL (Negative); Nitrate Urine Negative (Negative); Specific Grav Ur 1.004 (1.001-1.035)
[2025-01-21 13:24] LABS: INR 0.9; Prothrombin Time 12.7 Seconds (11.1-14.7)
[2025-01-21 13:26] LABS: Partial Thromboplastin Time 29.7 Seconds (22.3-36.8)
[2025-01-21] MEDS: LORazepam INJ (*CRX) 2 MG/ML VIAL 1 MG IV PUSH (13:34)
[2025-01-21 13:36] LABS: Alanine Aminotransferase 28 U/L (6-35); Albumin Level 4.5 g/dL (3.5-5.1); Alkaline Phosphatase 46 U/L (38-126); Anion Gap 8 mmol/L (4-12); Aspartate Amino Transferase 38 U/L (14-36); Bilirubin,Total 0.6 mg/dL (0.2-1.3); Blood Urea Nitrogen 13 mg/dL (7-17); Calcium 10.0 mg/dL (8.4-10.2); Carbon Dioxide 28 mmol/L (22-30); Chloride 101 mmol/L (98-107); Glucose 106 mg/dL (65-110); Lipase 67 U/L (23-300); Potassium 4.1 mmol/L (3.4-5.0); Sodium 137 mmol/L (137-145); Total Protein 8.6 g/dL (6.3-8.2)
[2025-01-21 13:37] LABS: Strep Group A RT-PCR NOT DETECTED (Negative)
[2025-01-21 13:43] LABS: Troponin I < 0.012 ng/mL (0.000-0.034)
[2025-01-21 13:49] LABS: Estimated CRCL calculation 50 ml/min; Estimated Glomerular Filt Rate 44
[2025-01-21 13:50] LABS: Influenza A QL RT-PCR Negative (Negative); Influenza B QL RT-PCR Negative (Negative); RSV RNA, RT-PCR Negative (Negative); SARS-CoV-2 RNA PCR Negative (Negative)
--- NOTE | 2025-01-21 14:41 | PC.NURSE ---
Pt. able to ambulate independently with a steady gait. Only complaint at this time is being tired. Pt. states I just need a day of rest. Dr. Downs notified.
== END 2025-01-21 15:24 | disposition home or self-care (01) ==
PROVIDERS: Emergency Medicine; Emergency Provider Emergency Medicine; PCP Family Medicine
DX: R07.89 Other chest pain (principal); F41.9 Anxiety disorder, unspecified; Z11.52 Encounter for screening for COVID-19; E78.5 Hyperlipidemia, unspecified; M19.90 Unspecified osteoarthritis, unspecified site; K21.9 Gastro-esophageal reflux disease without esophagitis; Z90.710 Acquired absence of both cervix and uterus; Z87.891 Personal history of nicotine dependence
CPT/HCPCS: 36415; 70450; 71046; 80053; 81003; 83690; 84484; 85025; 85380; 85610; 85730; 87637; 87651; 93005; 96374; 99284; J2060

== ENCOUNTER 2025-01-26 00:54 | Day surgery (SDC) | payer OTHER, SELFPAY ==
[2025-01-12 14:06] VITALS: BMI 32.2
--- OUTSIDE RECORDS SUMMARY | 2025-01-26 00:59 | XMS_ITS | Clinical Summary ---
Author Organization [facility] [address] Address [address] [place] [address] Care Team Providers Care Certified Hand Therapist Name Role Phone Mary Telles NP Primary Care Provider [phone] Carla Nayak DPM Unavailable [phone] Allergies Active Allergy Reactions Criticality Noted Date [...] CDT Office Visit [facility] [address] [place] [address] [place] [phone] Joshua Rosario MD Hypercholesteremia (Primary Dx); Palpitations; Other chest pain; Family history of early CAD 12/22/2024 1:00 PM CDT Ancillary Procedure [facility] [address] [place] [address] [place] [phone] Palpitations; Other chest pain 12/16/2024 Results Follow-Up [facility] [address] [facility] [address] [place] [phone] Joshua Rosario MD Extended/Fpc Holter Patch (>48 hours up to 7 days), Transthoracic Echo (TTE) Complete W Doppler/CF 12/03/2024 11:30 AM CDT Ancillary Procedure [facility] [address] [place] [address] [place] [phone] Palpitations 12/03/2024 11:00 AM CDT Office Visit [facility] [address] [place] [address] [place] [phone] Joshua Rosario MD Lipid screening (Primary Dx); Palpitations; Other chest pain; Hypercholesteremia; Family history of early CAD 12/02/2024 Orders Only [facility] [address] [place] [address] [place] [id number] Mary Telles, FIBERGLASS CONTAINER WINDING OPERATOR Sacroiliitis (Primary Dx) from Last 3 Months [...] 38.8 C (101.9 F) 08/01/2024 7:43 PM AUTOMATIC QUILLING MACHINE OPERATOR Respiratory Rate 18 01/14/2025 8:49 AM CDT [...] this topic Medical Devices Implanted Type Area Elastic Attacher Coverstitch Device Identifier Shelf Expiration Date Model / Serial / Lot [employer] Staple Bone Lapiplasty Speedplate Strl Rapid Compress Sk51 - [id number] Implanted:Qty: 1 on 04/02/2024 by Carla Nayak DPM at [facility] Right: First Toe [employer] 10/28/2028 SK51 / / [id number] [employer] Staple Bone Lapiplasty Speedplate Strl Rapid Compress Sk53 - Sn/A - [id number] Implanted:Qty: 1 on 04/02/2024 by Carla Nayak DPM at [facility] Right: First Toe [employer] 08/18/2028 SK53 / N/A / [id number] [employer] Max Vpc 2.5mm 16mm Cannulated Compression Headless Full Thread [id number] - [id number] Implanted:Qty: 1 on 04/02/2024 by Carla Nayak DPM at [facility] Right: First Toe [employer] [id number] / / Procedures Procedure Name Priority Date/Time Associated Diagnosis Comments POCT LIPID PANEL Routine 01/14/2025 9:04 AM CDT Hypercholesteremi a TRANSTHORACIC ECHO (TTE) COMPLETE W DOPPLER/CF WO CONTRAST Routine 12/22/2024 1:53 PM CDT Palpitations Other chest pain ELECTROCARDIOGRAM REPORT Routine 025 1:47 PM CDT Palpitations EXTENDED/DETENTION HOLTER PATCH (>48 HOURS UP TO 7 [...] PM CDT Narrative 12/22/2024 2:42 PM CDT [facility] [address], [place] [address] [address] [facility] [address], [place] [address] P:[phone] P:[phone] Echocardiographic Report Patient Name: ANGY OROURKE J : 1985 Study Date: 12/22/2024 1:25:29 PM Gender: F Tech: PHUONG Location: [facility] Provider: JOSHUA ROSARIO Height(Cm): 157 BSA: [...] Group Cardiology [address], [place] [address] [address] [facility] [address], [place] [address] P:[phone] P:[phone] Echocardiographic Report Patient Name: ANGY OROURKE J : 1985 Study Date: 12/22/2024 1:25:29 PM Gender: F Tech: [facility] Location: [facility] Provider: JOSHUA ROSARIO Height(Cm): 157 BSA: [...] MD ECG ORDERABLES Suzan l Result * Extended/Fpc Holter Patch (>48 hours up to 7 days) (12/03/2024 11:29 AM CDT) Anatomical Region Laterality Modality Electrocardiogra phy Narrative 12/15/2024 12:37 PM CDT AMBULATORY APPLICATION PROCESSOR REPORT Patient Name: Angy Orourke Date of [...] was used to complete this document, therefore, programming development project manager variances may occur. Procedure Note Frank Tillman MD - 12/15/2024 AMBULATORY APPLICATION PROCESSOR REPORT Patient Name: Angy Orourke Date of [...] software was used to complete this document, therefore,programming development project manager variances may occur. Joshua Rosario MD CV [...] from Last [address] [address] [place] [address] [facility] CLAIMS Care Teams Certified Hand Therapist Relationship Specialty Start Date End Date Mary Telles NP PCP - General Family Medicine 04/29/23 Carla Nayak DPM [address] [place] [phone] Consulting Physician Foot and Ankle Surg 04/02/24
--- OUTSIDE RECORDS SUMMARY | 2025-01-26 00:59 | XMS_ITS | Referral Summary ---
Author Organization [facility] [address] [place] [address] Address [address] [facility] [address] [place] [address] Care Team Providers Care Machine Fixer Name Role Phone Mary Telles RADIOLOGY ASST Primary Care Provider [phone] Carla Nayak DPM Unavailable [phone] Encounters Date Type Department Care Team Description 01/14/2025 8:45 AM CDT Office Visit [facility] Cardiology [address] [place] [address] [place] [phone] Joshua Rosario MD Hypercholesteremia (Primary Dx); Palpitations; Other chest pain; Family history of early CAD 12/22/2024 1:00 PM CDT Ancillary Procedure [facility] [address] [place] [phone] Palpitations; Other chest pain 12/16/2024 Results Follow-Up [facility] [address] [place] [address] [address] [place] [phone] Joshua Rosario MD Extended/Intermediate Holter Patch (>48 hours up to 7 days), Transthoracic Echo (TTE) Complete W Doppler/CF 12/03/2024 11:30 AM CDT Ancillary Procedure [facility] [address] [place] [phone] Palpitations 12/03/2024 11:00 AM CDT Office Visit [facility] [address] [place] [phone] Joshua Rosario MD Lipid screening (Primary Dx); Palpitations; Other chest pain; Hypercholesteremia; Family history of early CAD 12/02/2024 Orders Only [facility] [address] [facility] [address] [place] [address] Mary Telles NP Sacroiliitis (Primary Dx) from [...] 38.8 C (101.9 F) 08/01/2024 7:43 PM 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 Respiratory Rate 18 01/14/2025 8:49 AM CDT Oxygen Saturation 98% 01/14/2025 8:49 AM CDT Inhaled Oxygen Concentration - - Weight 82.6 kg (182 lb) 01/14/2025 8:49 AM CDT Height 157.5 cm (5' 2) 01/14/2025 8:49 AM CDT Body Mass Index 33.29 01/14/2025 8:49 AM CDT Plan of Treatment Not on file Medical Devices Implanted Type Area Chief Engineer Device Identifier Shelf Expiration Date Model / Serial / Lot [employer] Staple Bone Lapiplasty Speedplate Strl Rapid Compress Sk51 - [id number] Implanted:Qty: 1 on 04/02/2024 by Carla Nayak DPM at [facility] Right: First Toe [employer] 10/28/2028 SK51 / / [id number] [employer] Staple Bone Lapiplasty Speedplate Strl Rapid Compress Sk53 - Sn/A - [id number] Implanted:Qty: 1 on 04/02/2024 by Carla Nayak DPM at [facility] Right: First Toe [employer] 08/18/2028 SK53 / N/A / [id number] [employer] Max Vpc 2.5mm 16mm Cannulated Compression Headless Full Thread [id number] - [id number] Implanted:Qty: 1 on 04/02/2024 by Carla Nayak DPM at [facility] Right: First Toe [employer] [id number] / / Procedures Procedure Name Priority Date/Time Associated Diagnosis Comments POCT LIPID PANEL Routine 01/14/2025 9:04 AM CDT Hypercholesteremi a TRANSTHORACIC ECHO (TTE) COMPLETE W DOPPLER/CF WO CONTRAST Routine 12/22/2024 1:53 PM CDT Palpitations Other chest pain ELECTROCARDIOGRAM REPORT Routine 025 1:47 PM CDT Palpitations EXTENDED/SENIOR CARE HOLTER PATCH (>48 HOURS UP TO 7 [...] PM CDT Narrative 12/22/2024 2:42 PM CDT [facility] [address], [place] [address] [address] [facility] [address], [place] [address] P:[phone] P:[phone] Echocardiographic Report Patient Name: ANGY OROURKE J : 1985 Study Date: 12/22/2024 1:25:29 PM Gender: F Tech: [facility] Location: [facility] Provider: JOSHUA ROSARIO Height(Cm): 157 [...] Procedure Note Frank Tillman MD - 12/22/2024 [facility] [address], [place] [address] [address] [facility] [address], [place] [address] [phone] P:[phone] Echocardiographic Report Patient Name: ANGY OROURKE J : 1985 Study Date: 12/22/2024 1:25:29 PM Gender: F Tech: [facility] Location: [facility] Provider: JOSHUA ROSARIO Height(Cm): 157 [...] MD ECG ORDERABLES Suzan l Result * Extended/Intermediate Holter Patch (>48 hours up to 7 days) (12/03/2024 11:29 AM CDT) Anatomical Region Laterality Modality Electrocardiogra phy Narrative 12/15/2024 12:37 PM CDT AMBULATORY NEWSPAPER WRITER REPORT Patient Name: Angy Oorurke Date of : 1985 Requesting Physician: Dr. [...] was used to complete this document, therefore, leaf sucker operator variances may occur. Procedure Note Frank Tillman MD - 12/15/2024 AMBULATORY NEWSPAPER WRITER REPORT Patient Name: Angy Orourke Date of [...] software was used to complete this document, therefore,leaf sucker operator variances may occur. Joshua Rosario MD CV [...] Final Result from Last 3 Months Insurance [facility] CLAIMS Care Teams Machine Fixer Relationship Specialty Start Date End Date Mary Telles NP PCP - General Family Medicine 04/29/23 Carla Nayak DPM [address] [place] [phone] Consulting Physician Foot and Ankle Surg 04/02/24
--- OUTSIDE RECORDS SUMMARY | 2025-01-26 00:59 | XMS_ITS | Continuity of Care Document ---
Author Organization [facility] Address [address] [place] [address] Phone Care Team Providers Care Unix Analyst Name Role Phone Sandy San MD Unavailable [...] Copied on Encounter OFFICE/OUTPA TIENT VISIT, [facility] Physician s, [address] [place], [address], [place] tel:[phone] WALTER [place] blurred vision (chief complaint) Concussion without loss of consciousness, initial encounterHeadaches due to old head injury [address], [place], [place], [id number] , [place]. tel: [phone] Referring Provider: [address], [place], [address] . tel:[phone] Family History Family Member Type Diagnosis Age [...] type Covered libertarian ID Bowen oglesby(s) [place] [employer] [id number] Social History Type Description Quantity Date Captured [...]
[2025-01-26 08:18] VITALS: BP 133/95; PULSE 82; RESP 18; TEMP 36.3; O2SAT 97
[2025-01-26] MEDS: LACTATED RINGERS 1,000 ML 150 ML IV CONT (08:27)
--- NOTE | 2025-01-26 08:33 | WPDANESEPPF ---
Anes - Initial Pre Proc Eval Procedure: Operation Date: 01/26/25 09:30 Proposed Procedures p Esophagogastroduodenoscopy EGD - Junoir Forte MD Date/Time: 01/26/25 08:33 Surgeon: Junior Forte MD Pre Op Diagnosis: Eosinophilic esophagitis Patient Data Age: 39 Gender: F Height: 1.57 m Weight: 81.6 kg Last Vital Signs Temp 36.3 C L 01/26/25 08:18 Pulse 82 01/26/25 08:18 Resp 18 01/26/25 08:18 BP 133/95 H 01/26/25 08:18 Pulse Ox 97 01/26/25 08:18 O2 Del Method Room Air 01/26/25 08:18 Allergies Allergy/AdvReac Type Severity Reaction Status Date / Time oxycodone (From Percocet) Allergy Hives Verified 01/26/25 08:16 Home Medications ?Medication ?Instructions ?Recorded ?Confirmed ?Type omeprazole magnesium 20 mg 20 mg PO BID 30 days #60 caps 08/12/24 01/12/25 Rx capsule,delayed release evolocumab 140 mg/mL subcutaneous 140 mg subcut MONTHLY #2 mL 11/16/24 11/16/24 Rx pen injector (Hussain Chester) scopolamine base 1 mg over 3 days 1 patch transdermal Q3D PRN motion 01/10/25 01/12/25 Rx transdermal patch sickness #10 ea multivitamin (Daily Multi-Vitamin 1 tablet PO DAILY 01/12/25 01/12/25 History tablet) progesterone micronized 100 mg 100 mg PO DAILY 01/12/25 01/12/25 History capsule propranolol 10 mg tablet 10 mg PO DAILY 01/12/25 01/12/25 History lorazepam 0.5 mg tablet (Ativan) 0.5 mg PO TID PRN anxiety #14 tabs 01/21/25 Rx Patient hx anesthesia problems: post op nausea/vomiting Family hx anesthesia problems: none Results Review: All pre-operative results and documents have been reviewed as part of the pre-operative evaluation. [facility] Past Medical History Medical History Urine finding Rotator cuff arthropathy of right shoulder Arthritis GERD (gastroesophageal reflux disease) Headache Hyperlipidemia Anxiety PTSD (post-traumatic stress disorder) Surgical History Surgical History History of bunionectomy H/O: hysterectomy No pertinent past surgical history Family History Family History Mother Acute myocardial infarction Congestive heart failure Grandparent Acute myocardial infarction Cerebrovascular accident Diabetes mellitus Hypertension Sibling Hypertension Social History Social History Smoking packs per day: 0.5 Smoking cigarettes per day: 10.0 Years smoked: 10 Smoking pack-years: 5.00 Smoking status: Former smoker Tobacco type: cigarettes Alcohol intake: never Substance use: current Substance use type: marijuana Other substance usage details: Gummis Last use: 07/22/24 Do You Feel Safe in your Home?: Yes Lack of Transportation: No Lack of Food: Never True Current Housing: I Have Housing Concerned About Future Housing: No Difficulty Paying Gas/Electric Bills: No Difficulty Paying for Meds: No Currently Unemployed: No Education: Bachelor's Degree Difficulty w/ Childcare or Family Care: No Living arrangements: alone Gender identity (if verbalized by the patient): Female Spiritual care concerns: No Anes - Eval Final PreProcedure Day of Procedure 01/26/25 08:33 Patient weight: obese Heart: regular rate and rhythm Lungs: clear to auscultation Airway: Mallampati scale class II Neurological: alert and oriented Last oral intake: >/= 8 hours ASA classification: III Emergent: no Anesthetic plan: proceed Anesthesia type and monitoring: general GIVS and standard monitoring Results Review: All pre-operative results and documents have been reviewed as part of the pre-operative evaluation. Informed Consent: The patient's anesthetic plan and its attendant risks and benefits were discussed with the patient/family/POA. Questions were solicited and answers provided to the satisfaction of the patient/family/POA.
[2025-01-26] MEDS: SIMETHICONE ORAL SUSPENSION 20 MG/0.3 ML 30 ML BOTTLE 1.8 ML PO (08:51)
--- NOTE | 2025-01-26 09:16 | PM.IMHP ---
H&P: HPI History of Present Illness Date/Time: 01/26/25 09:16 Chief Complaint: Dysphagia Narrative: the patient has a known history of eosinophilic esophagitis. In August this year, an EGD revealed a moderate stenosis at the GE junction which was dilated with a 15-18 balloon. After that, she experienced improvement. However over the past few weeks she has been having recurrence of dysphagia . During her last clinic visit, we discussed therapeutic options and she opted for elimination diet rather than pharmacologic therapy. Review of Systems Review of Systems: All systems reviewed & are unremarkable except as noted in HPI and below PMFSH Past Medical History Medical History Urine finding Rotator cuff arthropathy of right shoulder Arthritis GERD (gastroesophageal reflux disease) Headache Hyperlipidemia Anxiety PTSD (post-traumatic stress disorder) Surgical History Surgical History History of bunionectomy H/O: hysterectomy No pertinent past surgical history Family History Family History Mother Acute myocardial infarction Congestive heart failure Grandparent Acute myocardial infarction Cerebrovascular accident Diabetes mellitus Hypertension Sibling Hypertension Social History Social History Smoking packs per day: 0.5 Smoking cigarettes per day: 10.0 Years smoked: 10 Smoking pack-years: 5.00 Smoking status: Former smoker Tobacco type: cigarettes Alcohol intake: never Substance use: current Substance use type: marijuana Other substance usage details: Gummis Last use: 07/22/24 Do You Feel Safe in your Home?: Yes Lack of Transportation: No Lack of Food: Never True Current Housing: I Have Housing Concerned About Future Housing: No Difficulty Paying Gas/Electric Bills: No Difficulty Paying for Meds: No Currently Unemployed: No Education: Bachelor's Degree Difficulty w/ Childcare or Family Care: No Living arrangements: alone Gender identity (if verbalized by the patient): Female Spiritual care concerns: No Meds Home Medications and Allergies Home Medications ?Medication ?Instructions ?Recorded ?Confirmed ?Type omeprazole magnesium 20 mg 20 mg PO BID 30 days #60 caps 08/12/24 01/12/25 Rx capsule,delayed release evolocumab 140 mg/mL subcutaneous 140 mg subcut MONTHLY #2 mL 11/16/24 11/16/24 Rx pen injector (Hussain Chester) scopolamine base 1 mg over 3 days 1 patch transdermal Q3D PRN motion 01/10/25 01/12/25 Rx transdermal patch sickness #10 ea multivitamin (Daily Multi-Vitamin 1 tablet PO DAILY 01/12/25 01/12/25 History tablet) progesterone micronized 100 mg 100 mg PO DAILY 01/12/25 01/12/25 History capsule propranolol 10 mg tablet 10 mg PO DAILY 01/12/25 01/12/25 History lorazepam 0.5 mg tablet (Ativan) 0.5 mg PO TID PRN anxiety #14 tabs 01/21/25 Rx Allergies Allergy/AdvReac Type Severity Reaction Status Date / Time oxycodone (From Percocet) Allergy Hives Verified 01/26/25 08:16 Vital Signs Vital Signs - 24 hr 01/26/25 08:18 Temperature 97.3 F L Pulse Rate 82 Respiratory Rate 18 Blood Pressure 133/95 H Pulse Oximetry 97 Oxygen Delivery Room Air Exam Const: General: cooperative and healthy appearing Resp: Effort & Inspection: normal respiratory effort and able to speak in complete sentences Auscultation: clear to auscultation bilaterally Cardio: Rate: regular rate Rhythm: regular rhythm GI: Inspection: normal to inspection GI Palp: No No hepatosplenomegaly present Auscultation: normal bowel sounds Rectal Exam: deferred Skin: General skin exam: normal color Psych: Appearance: grossly normal Mental Status: mental status grossly normal Assessment and Plan Assessment and plan (1) Eosinophilic esophagitis due to food: Code(s): K20.0 - Eosinophilic esophagitis Status: Acute Assessment and Plan: The patient is deemed a good candidate for the procedure. Consent signed. Will proceed.
--- NOTE | 2025-01-26 09:55 | S_PTH ---
PATIENT: Angy Orourke LOC: [facility] U#:[id number] AGE/SX: 39/F ROOM: RE01/26/[address]: Junior Forte MD : 1985 BED: DIS: 01/26/2025 SPEC #: [id number] RECD: 01/26/25 13:24 STATUS: BIMAL REQ #: [id number] KEYLA: 01/26/25 09:[address]: Junior Forte DEPT: [facility] Surgical RECD BY: Nan Campbell ENTERED: 01/26/25 13:25 SP TYPE: Surgical OTHR DR: Jacek Spring MD Tissues: A - Esophageal Biopsy Procedures: Hematoxylin and Eosin Stain Gross and Microscopic Level 4
[2025-01-26 10:03] VITALS: BP 128/75; PULSE 73; RESP 16; O2SAT 98
[2025-01-26 10:13] VITALS: BP 128/90; PULSE 72; RESP 20; O2SAT 99
[2025-01-26 10:23] VITALS: BP 140/84; PULSE 60; RESP 18; O2SAT 100
== END 2025-01-26 10:28 | disposition home or self-care (01) ==
PROVIDERS: PCP Family Medicine; Referring Provider Internal Medicine Gastroenterology; Visit Provider Internal Medicine Gastroenterology
PROC: 0DJ08ZZ Inspection of Upper Intestinal Tract, Via Natural or Artificial Opening Endoscopic (ICD-10-PCS; CPT 43239; principal; 2025-01-26 09:30)
DX: K21.00 Gastro-esophageal reflux disease with esophagitis, without bleeding (principal); E78.5 Hyperlipidemia, unspecified; K21.9 Gastro-esophageal reflux disease without esophagitis; F41.9 Anxiety disorder, unspecified; F43.10 Post-traumatic stress disorder, unspecified; M19.90 Unspecified osteoarthritis, unspecified site; F12.90 Cannabis use, unspecified, uncomplicated; E66.9 Obesity, unspecified; Z68.32 Body mass index [BMI] 32.0-32.9, adult; Z79.85 Long-term (current) use of injectable non-insulin antidiabetic drugs; Z98.890 Other specified postprocedural states; Z87.891 Personal history of nicotine dependence; Z82.49 Family history of ischemic heart disease and other diseases of the circulatory system
CPT/HCPCS: 43239; 88305; J2003; J2704; J7120

== ENCOUNTER 2025-03-09 07:23 | Outpatient (CLI) | payer OTHER, SELFPAY ==
--- NOTE | ~2025-03-09 | US_ITS ---
ULTRASOUND ABDOMEN LIMITED (RIGHT UPPER QUADRANT) Clinical History: R10.11 - Right upper quadrant pain Comparison: Abdominal ultrasound 10/04/2023 Technique: Right upper quadrant sonography Findings: Liver: Normal size. Normal echotexture. No intrahepatic biliary ductal dilatation. Normal hepatopedal flow in main portal vein. Common Duct: Normal caliber. 4 mm. Gallbladder: No stones. No wall thickening. No pericholecystic fluid. Several echogenic foci, nonmobile, nonshadowing. Pancreas: Unremarkable. Right kidney: Unremarkable. Retrohepatic IVC: Unremarkable. IMPRESSION: 1. No acute findings. 2. Several small gallbladder polyps. Recommend one year follow-up. Reviewed, dictated and finalized at location R.
== END 2025-03-09 07:24 | disposition home or self-care (01) ==
LOC: MICIMG 07:24
PROVIDERS: PCP Nurse Practitioner Family; Visit Provider Nurse Practitioner Family
DX: R10.11 Right upper quadrant pain (principal); R19.4 Change in bowel habit; K82.4 Cholesterolosis of gallbladder
CPT/HCPCS: 76705

== ENCOUNTER 2025-03-30 06:41 | Outpatient (CLI) | payer OTHER, SELFPAY ==
--- NOTE | ~2025-03-30 | NM_ITS ---
EXAMINATION: NM_HEPATWP_NM DATE: 03/30/2025 08:31 INDICATION: Right upper quadrant abdominal pain COMPARISON: Ultrasound dated 03/09/2025 TECHNIQUE: 4.88 mCi Tc-99m mebrofenin (Choletec) was administered intravenously. Scintigraphic images of the abdomen were obtained for one hour. 1.58 mcg sincalide (Kinevac) was administered by slow intravenous infusion, and imaging was continued for 30 minutes. Gallbladder ejection fraction was calculated by the technologist. FINDINGS: There is normal clearance of radiotracer from the blood pool. There is homogeneous tracer uptake by the liver. Activity progresses to the gallbladder and bowel. The gallbladder ejection fraction (GBEF) is 44% (normal 10-90%, but most patient with gallbladder dysfunction have GBEF < 35% which does overlap with the normal range). IMPRESSION: 1. Normal hepatobiliary scan Reviewed, dictated and finalized at location A.
--- OUTSIDE RECORDS SUMMARY | 2025-03-30 06:45 | XMS_ITS | Patient Health Record ---
Author Organization [facility] Address [address] MARLEN Meraz [id number] Care Team Providers Care Ed Special Education Teacher Name Role Phone Malgorzata Ventura [phone] Allergies Allergen (clinical drug ingredient) Drug/Non Drug Allergy documented on EMR Reaction Allergy Type Onset Date Status oxycodone Oxycodone Unknown Drug Allergy Active Results Component Value Reference Range Flag Notes ACTH, PLASMA (211) Reviewed date:01/11/2025 09:29:58 PM Interpretation: Performing Lab:HAYDEE Pictour.us Emerson/Jossy GregoryBri [id number] Michelle Willoughby, FzyighprwIU[address] Gokul Reyes M.D.,PhD Notes/Report: COLLECTION KIT GIVEN TO PATIENT. PATIENT ADVISED TO RETURN. URINE VOLUME: 2000 ACTH, PLASMA 45 6-50 pg/mL Reference range applies only to specimens collected between 7am-10am. TESTOSTERONE, FREE (DIALYSIS ) AND TOTAL,MS (97058) Reviewed date:01/11/2025 09:29:58 PM Interpretation: Performing Lab:Z3E, [facility]-[address] [address], [address], RdiacjqvtxWN[address] Arcenio Turner MD,PhD Notes/Report: COLLECTION KIT GIVEN TO PATIENT. PATIENT ADVISED TO RETURN. URINE VOLUME: 2000 TESTOSTERONE, TOTAL, MS 8 2-45 ng/dL For additional information, please refer to https://education.[employer].com/faq/WNF182 (This link is being provided for informational/educational purposes only.) (Note) This test was developed and its analytical performance characteristics have been determined by [facility]. It has not been cleared or approved by the FDA. This assay has been validated pursuant to the CLIA regulations and is used for clinical purposes. TESTOSTERONE, FREE 1.9 0.1-6.4 pg/mL (Note) This test was developed and its analytical performance characteristics have been determined by [facility]. It has not been cleared or approved by the FDA. This assay has been validated pursuant to the CLIA regulations and is used for clinical purposes. [facility] med fusion [address] [address],[address] [facility] [address] Arcenio Turner MD, PhD .VITAMIN D,25-OH,TOTAL,IA (1 7338) Reviewed date:01/02/2025 03:30:45 PM Interpretation: Performing Lab:Cm CLEMONS-Csgmly35815 Timo Johnson[address] Gunnar Blake MD Notes/Report: COLLECTION KIT GIVEN TO PATIENT. PATIENT ADVISED TO RETURN. URINE VOLUME: 2000 VITAMIN D,25-OH,TOTAL,IA 38 30-100 ng/mL N Vitamin D Status 25-OH Vitamin D: Deficiency: <20 ng/mL Insufficiency: 20 - 29 ng/mL Optimal: > or = 30 ng/mL For 25-OH Vitamin D testing on patients on D2-supplementation and patients for whom quantitation of D2 and D3 fractions is required, the QuestAssureD(TM) 25-OH VIT D, (D2,D3), LC/MS/MS is recommended: order code 68971 (patients >2yrs). See Note 1 Note 1 For additional information, please refer to http://education.K[employer] Backscr[employer]chers/faq/LVQ201 (This link is being provided for informational/ educational purposes only.) T3, FREE (26833) Reviewed date:01/02/2025 03:30:45 PM Interpretation: Performing Lab:Cm CLEMONS-Gvmhww98036 Alejandro Mark, MknxytYG[address] Gunnar Blake MD Notes/Report: COLLECTION KIT GIVEN TO PATIENT. PATIENT ADVISED TO RETURN. URINE VOLUME: 2000 T3, FREE 3.1 2.3-4.2 pg/mL N VITAMIN B12/FOLATE, SERUM PA LAURA (5318) Reviewed date:01/02/2025 03:30:45 PM Interpretation: Performing Lab:Cm CLEMONS-Riavjp62667 Beatrice JohnsonaKS[address] Gunnar Blake MD Notes/Report: COLLECTION KIT GIVEN TO PATIENT. PATIENT ADVISED TO RETURN. URINE VOLUME: 2000 VITAMIN B12 8819 430-0859 pg/mL H FOLATE, SERUM 22.7 N Reference Range Low: <3.4 Borderline: 3.4-5.4 Normal: >5.4 ESTRADIOL (4021) Reviewed date:01/02/2025 03:30:45 PM Interpretation: Performing Lab:Cm CLEMONS-Ckgxxi61494 Alejandro Mark, HdkjfvHT[address] Gunnar Blake MD Notes/Report: COLLECTION KIT GIVEN TO PATIENT. PATIENT ADVISED TO RETURN. URINE VOLUME: 2000 ESTRADIOL 31 N Reference Range Follicular Phase: 19-144 Mid-Cycle: 64-357 Luteal Phase: 56-214 Postmenopausal: < or = 31 Reference range established on post-pubertal patient population. No pre-pubertal reference range established using this assay. For any patients for whom low Estradiol levels are anticipated (e.g. males, pre-pubertal children and hypogonadal/post-menopausal females), the [facility] Estradiol, Ultrasensitive, LCMSMS assay is recommended (order code 74531). Please note: patients being treated with the drug fulvestrant (Faslodex(R)) have demonstrated significant interference in immunoassay methods for estradiol measurement. The cross reactivity could lead to falsely elevated estradiol test results leading to an inappropriate clinical assessment of estrogen status. [facility] order code 76920-Lvwopouie, Ultrasensitive LC/MS/MS demonstrates negligible cross reactivity with fulvestrant. .HEMOGLOBIN A1c (496) Reviewed date:12/30/2024 08:48:25 PM Interpretation: Performing Lab:[facility] CenterIgxdv[address] [facility] CenterBswtvhkWS[address] Gunnar Blake Notes/Report: COLLECTION KIT GIVEN TO PATIENT. PATIENT ADVISED TO RETURN. URINE VOLUME: 2000 HEMOGLOBIN A1c 5.0 <5.7 % of total Hgb N For the purpose of screening for the presence of diabetes: <5.7% Consistent with the absence of diabetes 5.7-6.4% Consistent with increased risk for diabetes (prediabetes) > or =6.5% Consistent with diabetes This assay result is consistent with a decreased risk of diabetes. Currently, no consensus exists regarding use of hemoglobin A1c for diagnosis of diabetes in children. According to [place] Diabetes Association (ADA) guidelines, hemoglobin A1c <7.0% represents optimal control in non- diabetic patients. Different metrics may apply to specific patient populations. Standards of Medical Care in Diabetes(ADA). THYROID PEROXIDASE ANTIBODIE S (5081) Reviewed date:01/11/2025 09:29:58 PM Interpretation: Performing Lab:MONIE, [facility]orenzo Btwd6574 Mittel Blrolando, Lorenzo LockhartCnggQI[address] Nash Gusman Juan F Notes/Report: COLLECTION KIT GIVEN TO PATIENT. PATIENT ADVISED TO RETURN. URINE VOLUME: 2000 THYROID PEROXIDASE ANTIBODIES 1 <9 IU/mL .CBC (INCLUDES DIFF/PLT) (63 99) Reviewed date:01/02/2025 03:30:45 PM Interpretation: Performing Lab:KACI [facility]-Gqeeje62515 Alejandro Mark, JvwxdhQT[address] Gunnar Blake MD Notes/Report: COLLECTION KIT GIVEN TO PATIENT. PATIENT ADVISED TO RETURN. URINE VOLUME: 2000 WHITE BLOOD CELL COUNT 7.0 3.8-10.8 Thousand/uL N RED BLOOD CELL COUNT 4.14 3.80-5.10 Million/uL N HEMOGLOBIN 12.3 11.7-15.5 g/dL N HEMATOCRIT 39.4 35.0-45.0 % N MCV 95.2 80.0-100.0 fL N MCH 29.7 27.0-33.0 pg N MCHC 31.2 32.0-36.0 g/dL L For adults, a slight decrease in the calculated MCHC value (in the range of 30 to 32 g/dL) is most likely not clinically significant; however, it should be interpreted with caution in correlation with other red cell parameters and the patient's clinical condition. RDW 12.1 11.0-15.0 % N PLATELET COUNT 360 140-400 Thousand/uL N MPV 10.0 7.5-12.5 fL N ABSOLUTE NEUTROPHILS 2576 1765-6593 cells/uL N ABSOLUTE LYMPHOCYTES 3696 850-3900 cells/uL N ABSOLUTE MONOCYTES 532 200-950 cells/uL N ABSOLUTE EOSINOPHILS 168 15-500 cells/uL N ABSOLUTE BASOPHILS 28 0-200 cells/uL N NEUTROPHILS 36.8 N LYMPHOCYTES 52.8 N MONOCYTES 7.6 N EOSINOPHILS 2.4 N BASOPHILS 0.4 N .LIPID PANEL, STANDARD (7600 ) Reviewed date:01/02/2025 03:30:45 PM Interpretation: Performing Lab:KACI, [facility]-[address]zxflk[address], WyhcrmYX[address] Gunnar Blake MD Notes/Report: COLLECTION KIT GIVEN TO PATIENT. PATIENT ADVISED TO RETURN. URINE VOLUME: 2000 CHOLESTEROL, TOTAL 324 <200 mg/dL H HDL CHOLESTEROL 51 > OR = 50 mg/dL N TRIGLYCERIDES 222 <150 mg/dL H If a non-fasting specimen was collected, consider repeat triglyceride testing on a fasting specimen if clinically indicated. Cheri et al. J. of Clin. Lipidol. 2015;9:129-169. LDL-CHOLESTEROL 232 H LDL-C levels > or = 190 mg/dL may indicate familial hypercholesterolemia (FH). Clinical assessment and measurement of blood lipid levels should be considered for all first degree relatives of patients with an FH diagnosis. LDL Cholesterol (LDL-C) levels > or = 300 mg/dL may indicate homozygous familial hypercholesterolemia (HoFH). Untreated, these extremely high LDL-C levels can result in premature CV events and mortality. Patients should be identified early and provided appropriate interventions to reduce the cumulative LDL-C burden from . For questions about testing for familial hypercholesterolemia, please call [facility] Client Services at [email or web address].INFO. Cheri Buenrostro, et al. J National Lipid Association Recommendations for Patient-Centered Management of Dyslipidemia: Part 1 Journal of Clinical Lipidology 2015;9(2), 129-169. Sona Bass. et al. (2014). Homozygous familial hypercholesterolaemia: new insights and guidance for clinicians to improve detection and clinical management. Heart Journal, 35(32), 9873-4774. Reference range: <100 Desirable range <100 mg/dL for primary prevention; <70 mg/dL for patients with CHD or diabetic patients with > or = 2 CHD risk factors. LDL-C is now calculated using the Josh-Hugo calculation, which is a validated novel method providing better accuracy than the Friedewald equation in the estimation of LDL-C. Josh SS et al. MANJU. 2013;310(19): 8864-3513 (http://education.Deskarma.com/faq/AMC631) CHOL/HDLC RATIO 6.4 <5.0 (calc) H NON HDL CHOLESTEROL 273 <130 mg/dL (calc) H Non-HDL level > or = 220 is very high and may indicate genetic familial hypercholesterolemia (FH). Clinical assessment and measurement of blood lipid levels should be considered for all first-degree relatives of patients with an FH diagnosis. For patients with diabetes plus 1 major ASCVD risk factor, treating to a non-HDL-C goal of <100 mg/dL (LDL-C of <70 mg/dL) is considered a therapeutic option. IRON AND TOTAL IRON BINDING CAPACITY (7573) Reviewed date:01/02/2025 03:30:45 PM Interpretation: Performing Lab:KACI Pictour.us Emerson-Dayllf82501 Ale[address]andro Mark, HbotcqLP[address] Gunnar Blake MD Notes/Report: COLLECTION KIT GIVEN TO PATIENT. PATIENT ADVISED TO RETURN. URINE VOLUME: 2000 IRON, TOTAL 125 40-190 mcg/dL N IRON BINDING CAPACITY 365 250-450 mc g/dL (calc) N % SATURATION 34 16-45 % (calc) N MAGNESIUM (622) Reviewed date:01/02/2025 03:30:45 PM Interpretation: Performing Lab:Cm CLEMONS-Wiinjh30245Timo Pruitt[address] Gunnar Blake MD Notes/Report: COLLECTION KIT GIVEN TO PATIENT. PATIENT ADVISED TO RETURN. URINE VOLUME: 2000 MAGNESIUM 2.4 1.5-2.5 mg/dL N .COMPREHENSIVE METABOLIC DONAHUE (94478) [facility] Reviewed date:01/02/2025 03:30:45 PM Interpretation: Performing Lab:Cm CLEMONS-Yguvjx99011 Timo Johnson[address] Gunnar Blake MD Notes/Report: COLLECTION KIT GIVEN TO PATIENT. PATIENT ADVISED TO RETURN. URINE VOLUME: 2000 GLUCOSE 97 65-99 mg/dL N Fasting reference interval UREA NITROGEN (BUN) 17 7-25 mg/dL N CREATININE 0.82 0.50-0.99 mg/dL N EGFR 92 > OR = 60 mL/min/1.73m2 N BUN/CREATININE RATIO SEE NOTE: 6-22 (calc) Not Reported: BUN and Creatinine are within reference range. SODIUM 136 135-146 mmol/L N POTASSIUM 4.1 3.5-5.3 mmol/L N CHLORIDE 100 98-110 mmol/L N CARBON DIOXIDE 28 20-32 mmol/L N CALCIUM 9.4 8.6-10.2 mg/dL N PROTEIN, TOTAL 7.0 6.1-8.1 g/dL N ALBUMIN 4.2 3.6-5.1 g/dL N GLOBULIN 2.8 1.9-3.7 g/dL (calc) N ALBUMIN/GLOBULIN RATIO 1.5 1.0-2.5 (calc) N BILIRUBIN, TOTAL 0.7 0.2-1.2 mg/dL N ALKALINE PHOSPHATASE 39 31-125 U/L N AST 21 10-30 U/L N ALT 21 6-29 U/L N TSH (899) Reviewed date:01/02/2025 03:30:45 PM Interpretation: Performing Lab:Cm CLEMONS-Timo Patel[address] Gunnar Blake MD Notes/Report: COLLECTION KIT GIVEN TO PATIENT. PATIENT ADVISED TO RETURN. URINE VOLUME: 2000 TSH 1.69 N Reference Range > or = 20 Years 0.40-4.50 Ranges First trimester 0.26-2.66 Second trimester 0.55-2.73 Third trimester 0.43-2.91 T4, FREE (866) Reviewed date:01/02/2025 03:30:45 PM Interpretation: Performing Lab:Cm CLEMONS LenexaKS[address] Gunnar Blake MD Notes/Report: COLLECTION KIT GIVEN TO PATIENT. PATIENT ADVISED TO RETURN. URINE VOLUME: 2000 T4, FREE 1.3 0.8-1.8 ng/dL N LH (615) Reviewed date:01/02/2025 03:30:45 PM Interpretation: Performing Lab:Cm CLEMONS, PiznrhPY[address] Gunnar Blake MD Notes/Report: COLLECTION KIT GIVEN TO PATIENT. PATIENT ADVISED TO RETURN. URINE VOLUME: 2000 LH 11.0 N Reference Range Follicular Phase 1.9-12.5 Mid-Cycle Peak 8.7-76.3 Luteal Phase 0.5-16.9 Postmenopausal 10.0-54.7 FSH (470) Reviewed date:01/02/2025 03:30:45 PM Interpretation: Performing Lab:Cm CLEMONS LenexaKS[address] Gunnar Blake MD Notes/Report: COLLECTION KIT GIVEN TO PATIENT. PATIENT ADVISED TO RETURN. URINE VOLUME: 2000 FSH 10.5 N Reference Range Follicular Phase 2.5-10.2 Mid-cycle Peak 3.1-17.7 Luteal Phase 1.5- 9.1 Postmenopausal 23.0-116.3 DHEA SULFATE (402) Reviewed date:01/02/2025 03:30:45 PM Interpretation: Performing Lab:Cm CLEMONS LenexaKS[address] Gunnar Blake MD Notes/Report: COLLECTION KIT GIVEN TO PATIENT. PATIENT ADVISED TO RETURN. URINE VOLUME: 2000 DHEA SULFATE 40 15-205 mcg/dL N PROGESTERONE (745) Reviewed date:01/02/2025 03:30:45 PM Interpretation: Performing Lab:Cm CLEMONS LenexaKS[address] Gunnar Blake MD Notes/Report: COLLECTION KIT GIVEN TO PATIENT. PATIENT ADVISED TO RETURN. URINE VOLUME: 2000 PROGESTERONE 4.6 N Reference Ranges Female Follicular Phase < 1.0 Luteal Phase 2.6-21.5 Post menopausal < 0.5 1st Trimester 4.1-34.0 2nd Trimester 24.0-76.0 3rd Trimester 52.0-302.0 INSULIN (561) Reviewed date:01/02/2025 03:30:45 PM Interpretation: Performing Lab:Cm CLEMONS01Timo Pruitt[address] Gunnar Blake MD Notes/Report: COLLECTION KIT GIVEN TO PATIENT. PATIENT ADVISED TO RETURN. URINE VOLUME: 2000 INSULIN 11.7 N Reference Range < or = 18.4 Risk: Optimal < or = 18.4 Moderate NA High >18.4 Adult cardiovascular event risk category cut points (optimal, moderate, high) are based on Insulin Reference Interval studies performed at [facility] in 2021. CORTISOL, FREE, 24 HOUR URIN E (22275) Reviewed date:01/12/2025 09:22:41 PM Interpretation: Performing Lab:Cm HO/Jossy [facility],[address] Alexei Dumont, [facility] Hospital[facility]dw[facility]rfmweAR[address] Cordelia Jara MD,PhD,CARMEN Notes/Report: SPLIT 12/30/2024 FROM [id number] COLLECTION KIT GIVEN TO PATIENT. PATIENT ADVISED TO RETURN. URINE VOLUME: 3000/24 TOTAL VOLUME 3000 CORTISOL, FREE, URINE 14.5 4.0-50.0 mcg/24 h CORTISOL, FREE, URINE 13.9 Reference Range: ADULTS: 3.1-42.3 CREATININE, URINE 1.04 0.50-2.15 g/24 h This test was developed and its analytical performance characteristics have been determined by [facility]. It has not been cleared or approved by the FDA. This assay has been validated pursuant to the CLIA regulations and is used for clinical purposes. DEXAMETHASONE (26094) Reviewed date:01/11/2025 09:29:58 PM Interpretation: Performing Lab:Cm HO/Jossy [facility],[address] [facility] CenterCA[address] Cordelia Jara MD,PhD,CARMEN Notes/Report: DEXAMETHASONE 311 Reference Ranges for Dexamethasone: Baseline: Less than 20 ng/dL 1 mg dexamethasone overnight: 180-550 ng/dL (8:00-10:00 AM) This test was developed and its analytical performance characteristics have been determined by [facility]. It has not been cleared or approved by the FDA. This assay has been validated pursuant to the CLIA regulations and is used for clinical purposes. CORTISOL, TOTAL (367) Reviewed date:12/30/2024 08:48:25 PM Interpretation: Performing Lab:Cm CLEMONS-Ivptji61718 [facility], SecasbDM[address] Gunnar Blake MD Notes/Report: CORTISOL, TOTAL 0.7 L Reference Range: For 8 a.m.(7-9 a.m.) Specimen: 4.0-22.0 Reference Range: For 4 p.m.(3-5 p.m.) Specimen: 3.0-17.0 * Please interpret above results accordingly * Reason For Referral No Information Medications Medication SIG (Take, Route, Frequency, Duration) Notes Start Date End Date Status Propranolol HCl 10 MG Tablet 1 tablet on an empty stomach Orally every 12 hrs; Duration: 90 days as needed 12/01/2024 Active Multivitamin - Tablet 1 tablet Orally On ce a day; Duration: 30 day(s) 12/01/2024 Active Omeprazole 20 MG Capsule Delayed Release 1 capsule 1/2 to 1 hour before morning meal Orally Once a day; Duration: 30 day(s) 12/01/2024 Active dexAMETHasone 1 MG Tablet 1 tablet Orally at 10 pm night before 8 am cortisol; Duration: 1 days 03/14/2025 Active Lisinopril 20 MG Tablet Oral; Duration: 90 Days Not-Taking Progesterone 100 MG Capsule TAKE 1 CAPSULE BY MOUTH DAILY AT BEDTIME; Duration: 90 Active Wegovy 0.5 MG/0.5ML Solution Auto-injector 0.5 mL Subcutaneous; Duration: 90 days 01/11/2025 Not-Taking Wegovy 0.25 MG/0.5ML Solution Auto-injector 0.5 mL Subcutaneous once a week; Duration: 30 days 01/11/2025 Not-Taking Social History Social History Drug/Alcohol: Social Info Question Answer Notes Drugs Have you use non pre scription recreational drug(s) in past 12 months? Yes Marijuana? CBD gummies Alcohol Screen How often did you toure ve a drink containing alcohol in the past year? none/never - 0 How many drinks did you have on a typical day when you drink? none, I don't drink - 0 How often did you have six or more drinks? never - 0 AUDIT-C score Negative Tobacco Use: Social Info Question Answer Notes Smoking History Are you a tobacco smoker / vaper? nons moker Are you an other tobacco user? No Problems Problem Type SNOMED Code ICD Code Onset Dates Problem Status W/U Status Risk Notes Problem Overweight (151032573) Overweight (E66.3) Active confirmed Problem Insomnia (281824420) Insomnia due to medical condition (G47.01) Active confirmed Problem Obesity (537668373) Obesity (BMI 30-39.9) (E66.9) Active confirmed Problem Kidney stone (50127003) Kidney stones (N20.0) Active confirmed Problem Generalized anxiety disorder (25213881) Anxiety, generalized (F41.1) Active confirmed Problem Mixed hyperlipidemia (015132070) Mixed dyslipidemia (E78.2) Active confirmed Problem Postsurgical menopause (082894305) Postsurgical menopause (E89.40) Active confirmed Vital Signs Heart Rate 74 /min 03/14/2025 Height-cm 157.48 cm 03/14/2025 Oximetry 99 % 03/14/2025 Blood pressure diastolic 80 mm Hg 03/14/2025 Weight-kg 82.1 kg 03/14/2025 Height 62 in 03/14/2025 Blood pressure systolic 123 mm Hg 03/14/2025 Weight 181 lbs 03/14/2025 BMI 33.1 kg/m2 03/14/2025 Encounters Encounter Location Date Provider Diagnosis [facility] Dr. Ventura [address] [place] [address] 12/01/2024 Malgorzata Ventura Postsurgical menopau se E89.40 ; Anxiety, generalized F41.1 ; Abnormal weight gain R63.5 ; Insomnia due to medical condition G47.01 and Kidney stones N20.[address] Ventura [address] [place] [address] 01/11/2025 Malgorzata Ventura Postsurgical menopau se E89.40 ; Mixed dyslipidemia E78.2 ; Dietary counseling and surveillance Z71.3 and Obesity (BMI 30-39.9) E66.[address] Ventura [address] [place], [place] [id number] 03/14/2025 Malgorzata Ventura Obesity (BMI 30-39.9 ) E66.9 ; Mixed dyslipidemia E78.2 and Dietary counseling and surveillance Z71.[address] [address] 01/12/[address] Ventura [address] [place] [address] 12/02/2024 Malgorzata Ventura Assessments Encounter Date Diagnosis (ICD Code) Assessment Notes Treatment Notes Treatment Clinical Notes Section Notes 12/01/2024 Anxiety, generalized (ICD-10 - F41.1) 12/01/2024 Postsurgical menopause (ICD-10 - E89.40) 01/11/2025 Mixed dyslipidemia (ICD-10 - E78.2) 01/11/2025 Postsurgical menopause (ICD-10 - E89.40) 03/14/2025 Obesity (BMI 30-39.9) (ICD-10 - E66.9) 03/14/2025 Mixed dyslipidemia (ICD-10 - E78.2) 12/01/2024 Abnormal weight gain (ICD-10 - R63.5) 01/11/2025 Dietary counseling and surveillance (ICD-10 - Z71.3) Spent 15 minutes preventative counseling patient on dietary recommendations and changes in setting of hyperglycemia- need to restrict refined sugars and processed foods and incorporate up to 150 minutes of moderate level activity weekly. 01/11/2025 Obesity (BMI 30-39.9) (ICD-10 - E66.9) 03/14/2025 Dietary counseling and surveillance (ICD-10 - Z71.3) Spent 15 minutes preventative counseling patient on dietary recommendations and changes in setting of hyperglycemia- need to restrict refined sugars and processed foods and incorporate up to 150 minutes of moderate level activity weekly. 12/01/2024 Insomnia due to medical condition (ICD-10 - G47.01) 12/01/2024 Kidney stones (ICD-10 - N20.0) 12/01/2024 Other Assessment and Plan: 1. Panic Attacks- Prescribe propranolol 10 mg PRN for anxiety and panic attacks - Take when heart rate is over 80 bpm - Do not take if heart rate drops below 50 bpm - Informed patient of potential side effects, including tiredness- Prescribe progesterone 100 mg PO at bedtime for sleep and anxiety- Order hormone panel including progesterone, estrogen, testosterone, cortisol, ACTH, and DHEA- Discontinue CBD and THC use for at least 3 days prior to lab work- Follow up with health occupations teacher in December to rule out underlying cardiac issues- Consider magnesium supplementation for natural sleep aid 2. Hypercholesterolemia and Kidney Function Concerns- Order comprehensive metabolic panel and lipid panel- Advise patient to stay hydrated and avoid high oxalate foods- Recommend lemon water for kidney stone prevention- Check adrenal function- Avoid steroid use for 6 weeks 3. Weight Gain and Hormonal Imbalance- Order hormone panel as mentioned in panic attacks plan- Evaluate testosterone levels and consider replacement therapy based on results- Reassess after lab results are available 4. Sleep Disturbance- Initiate progesterone 100 mg PO at bedtime- Recommend magnesium supplementation as a natural sleep aid- Discontinue CBD and THC use- Reassess sleep quality at follow-up appointment 5. Psychosocial Stressors- Provide supportive counseling- Consider referral for psychotherapy or stress management resources if symptoms persist Spent 45 minutes preparing to see the patient (ex review of tests/chart), obtaining and / or reviewing separately obtained history, performing a medically appropriate examination and/or evaluation, counseling and educating the patient/family/caregive r, ordering medications, tests, or procedures, referring and communicating with other health ambulatory care coordinator, documenting clinical information in the electronic or other health record, independently interpreting results and communicating results to the patient/family/caregive r and care coordinating patient plan. Patient alert and oriented x 4 and aware of discussion noted above and in agreeance to plan in management of anxiety/insomnia, abnormal weight gain, postsurgical menopause and hx of kidney stones and potential for hypercortisolism as systemic concern. 01/11/2025 Other Assessment and Plan: 1. Hypercholesterolemia- Follow up with other provider on Friday to discuss cholesterol management options (Repatha or Leqvio)- Consider initiating Ozempic (semaglutide) for potential cholesterol-lowering effects - Start at 0.25 mg subcutaneously once weekly, potentially increasing to 0.5 mg - Administer on a non-busy day due to potential slowing of gut transit - Take with food to minimize nausea - Hold for severe nausea and report to clinic- Monitor for side effects, particularly nausea- Use existing Zofran prescription if needed for nausea management 2. Obesity- Initiate Wegovy (semaglutide) for weight management - Submit prescription to insurance for coverage (BMI over 30 qualifies) - If insurance denies, consider compounded version at $290/month - Plan for 3-6 months of treatment initially - Discuss potential for dose spacing or microdosing to extend treatment- Educate on Wegovy administration: - Weekly subcutaneous injection 2 inches from belly button - Clean with alcohol, inject, hold for 10 seconds - Take with food to minimize nausea- Monitor for side effects, particularly nausea- Follow up to assess efficacy and adjust treatment plan as needed 3. Fatigue- Recommend Vitamin D supplementation to address slight deficiency- Continue current progesterone regimen- Monitor fatigue levels with initiation of weight management medication 4. Cardiovascular risk- Initiate Wegovy or Ozempic as previously outlined for potential cardiovascular benefits- Continue to monitor cholesterol levels and overall cardiovascular risk factors- Encourage continuation of current exercise regimen Spent 25 minutes preparing to see the patient (ex review of tests/chart), obtaining and / or reviewing separately obtained history, performing a medically appropriate examination and/or evaluation, counseling and educating the patient/family/caregive r, ordering medications, tests, or procedures, referring and communicating with other health ambulatory care coordinator, documenting clinical information in the electronic or other health record, independently interpreting results and communicating results to the patient/family/caregive r and care coordinating patient plan. Patient alert and oriented x 4 and aware of discussion noted above and in agreeance to plan in management of postsurgical menopausal changes, mixed dyslipidemia, weight management/obesity. 03/14/2025 Angelia Travis is a female patient with a history of weight fluctuations, presenting with concerns about weight management and potential hormonal imbalances. She reports a family history of heart disease and a personal history of TIA. OverweightAssessment: Patient reports significant efforts in weight management, including strength training 3-4 times weekly, cardio 4-5 times weekly, and strict dietary monitoring. Despite these efforts, weight has increased from a low of 155 pounds to approximately 180 pounds following foot surgery complications. Previous stimulant medication for weight loss was discontinued due to adverse effects. Patient's insulin levels are reported as borderline. Given the patient's consistent efforts and lack of expected weight loss, further evaluation of potential underlying factors is warranted.Plan:- Trial of GLP-1 receptor agonist (low dose) for weight management - Patient informed of cost: $290 for low dose, $338 for middle dose, $469 for high dose - Discussed potential benefits and insurance coverage limitations - Plan to reassess efficacy in one month- Order high-sensitivity C-reactive protein (hs-CRP) test- Repeat dexamethasone suppression test- Check insulin levels- Follow up in April to reassess weight loss progress and lab results- Recommend consideration of phosphatidylserine and ashwagandha root supplements for stress management- Continue current exercise and dietary regimen- [facility] Possible Endocrine DisorderAssessment: Patient expresses concerns about potential hormonal imbalances. Previous dexamethasone suppression test (DST) result was 0.7, which is below the threshold for suspicion of hypercortisolism. Urine cortisol tests have been inconclusive. Patient reports improvement in lethargy with progesterone treatment but still experiences brain fog.Plan:- Continue current progesterone treatment- Repeat dexamethasone suppression test in April- Monitor for changes in symptoms related to potential endocrine disorders Family History of Cardiovascular DiseaseAssessment: Patient reports a significant family history of heart disease, with mother dying from heart disease and paternal grandmother dying from stroke and heart attack. Patient has experienced panic attacks initially thought to be cardiac-related and has a history of TIA. This family history and personal medical history increase the patient's cardiovascular risk profile.Plan:- Obtain and review previous TIA workup and imaging from [facility]- Consider referral to neurology for further evaluation of TIA history- Continue to monitor cardiovascular risk factors Spent 15 minutes preparing to see the patient (ex review of tests/chart), obtaining and / or reviewing separately obtained history, performing a medically appropriate examination and/or evaluation, counseling and educating the patient/family/caregive r, ordering medications, tests, or procedures, referring and communicating with other health ambulatory care coordinator, documenting clinical information in the electronic or other health record, independently interpreting results and communicating results to the patient/family/caregive r and care coordinating patient plan. Patient alert and oriented x 4 and aware of discussion noted above and in agreeance to plan in management of weight and mixed dyslipidemia. Plan Of Treatment Pending Test Test Name Order Date *CT ABDOMEN W/O CONTRAST 85854 [id number] Next Appt Details Provider Name:Malgorzata Ventura, 10:00:00 AM, [address] [place] [address], [phone], Insurance Providers Payer Name Payer Address Payer Phone Subscriber Number Group Number Insured Name Patient Relationship to Insured Coverage Start Date Coverage End Date [facility] Claims Dept [address] [place] [phone] [id number] Angy Orourke Self - patient is the insured Medical (General) History Medical History History ICD Code hypertension hyperlipidemia
--- OUTSIDE RECORDS SUMMARY | 2025-03-30 06:45 | XMS_ITS | Clinical Summary ---
Author Organization [facility] [address] Address [address] [place] [address] Care Team Providers Care Piano Bench Assembler Name Role Phone Mary Telles NP Primary Care Provider [phone] Carla Nayak DPM Unavailable [phone] Allergies Active Allergy Reactions Criticality Noted Date [...] CDT Office Visit [facility] [address] [facility] [address] [facility] [place] [id number] Benson Rosario MD Hypercholesteremia (Primary Dx); Palpitations; Other chest pain; Family history of early CAD from Last 3 Months Surgical History Surgery [...] 38.8 C (101.9 F) 08/01/2024 7:43 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 Respiratory Rate 18 01/14/2025 8:49 AM CDT [...] Depression Screening 1983 Hepatitis C Screening 1983 Varicella Vaccines (1 of 2 - 13+ 2-dose series) 10/19/1996 Hepatitis B Screening 10/19/2001 Regular Well Visit/Exam 18-64 10/19/2001 Covid-19 Vaccine ( - season) 2025 04/09/2021, 08/03/2020, 07/13/2020 Influenza Vaccine (#1) 2025 , 04/07/2020, 05/14/2019, Additional history exists DTaP/Tdap/Td Vaccine (4 - Td or Tdap) 09/03/2032 09/03/2022, 09/23/2016, 12/15/2006, Additional history exists HPV Vaccines Completed 07/17/2011, 08/2008, 12/15/2006 Pneumococcal vaccine <65 Aged Out No longer eligible based on patient's age to complete this topic Medical Devices Implanted Type Area Legal Nurse Consultant Device Identifier Shelf Expiration Date Model / Serial / Lot GearBox Staple Bone Lapiplasty Speedplate Strl Rapid Compress Sk51 - [id number] Implanted:Qty: 1 on 04/02/2024 by Carla Nayak DPM at [facility] Right: First Toe [employer] 10/28/2028 SK51 / / [id number] [id number] Staple Bone Lapiplasty Speedplate Strl Rapid Compress Sk53 - Sn/A - [id number] Implanted:Qty: 1 on 04/02/2024 by Carla Nayak DPM at [facility] Right: First Toe [employer] 08/18/2028 SK53 / N/A / [id number] [employer] Max Vpc 2.5mm 16mm Cannulated Compression Headless Full Thread [id number] - [id number] Implanted:Qty: 1 on 04/02/2024 by Carla Nayka DPM at [facility] Right: First Toe [employer] [id number] / / Procedures Procedure Name Priority Date/Time Associated Diagnosis Comments POCT LIPID PANEL Routine 01/14/2025 9:04 AM CDT Hypercholesteremia from Last 3 Months Results * (ABNORMAL) POCT lipid panel (01/14/2025 9:04 AM CDT) Cholesterol, POC 379 <200 MG/DL HDL, POC 42 >=40 mg/dL Triglycerides, POC 393(A) <=149 mg/dL LDL Cholesterol POC 259(A) <=129 mg/dL Chol/HDL Ratio, POC 9.0 NONE Non-HDL Cholesterol, POC 337 NONE mg/dL Cholesterol Total, POC 379(A) 30 - 199 mg/dL Capillary blood 01/14/2025 9 :04 AM CDT Benson Rosario MD POINT OF CARE TEST O RDERABLES Final Result from Last [address] [place] [phone] [facility] CLAIMS Care Teams Piano Bench Assembler Relationship Specialty Start Date End Date Mary Telles NP PCP - General Family Medicine 04/29/23 Carla Nayak DPM [address] [place] [address] Consulting Physician Foot and Ankle Surg 04/02/24
== END 2025-03-30 06:42 | disposition home or self-care (01) ==
PROVIDERS: PCP Nurse Practitioner Family; Visit Provider Nurse Practitioner Family
DX: K80.20 Calculus of gallbladder without cholecystitis without obstruction (principal); R10.11 Right upper quadrant pain
CPT/HCPCS: 78227; A9537; J2805

== ENCOUNTER 2025-04-08 14:24 | Outpatient (CLI) | payer OTHER, SELFPAY ==
--- NOTE | ~2025-04-08 | CT_ITS ---
EXAMINATION: CT foot RT wo con DATE: 04/08/2025 14:55 INDICATION: Injury of foot. TECHNIQUE: Computed tomography (CT) of the right foot was performed without intravenous contrast. Automated exposure control and iterative reconstruction technique were employed. The dose-length product was 482.30 mGy-cm. COMPARISON: Right foot CT 09/22/2024, radiographs 01/12/2024 FINDINGS: There are changes of fusion procedure of first tarsometatarsal joint with plate and screws. There is no bridging bone. There is a screw in first proximal phalanx. No fracture. There is mild osteoarthritis of first metatarsophalangeal joint. There is moderate osteoarthritis of second tarsometa tarsal joint. There are enthesophytes at the posterior and plantar aspects of calcaneal tuberosity. IMPRESSION: 1. Fusion procedure of first tarsometatarsal joint. No bridging bone. 2. Polyarticular osteoarthritis. Reviewed, dictated and finalized at location E.
--- OUTSIDE RECORDS SUMMARY | 2025-04-08 14:28 | XMS_ITS | Patient Health Record ---
Author Organization [facility] Address [address] [place] [address] Care Team Providers Care Title Searcher Name Role Phone Malgorzata Ventura Unavailable [phone] Allergies Allergen (clinical drug ingredient) Drug/Non Drug Allergy documented on EMR Reaction Allergy Type Onset Date Status oxycodone Oxycodone Unknown Drug Allergy Active Results Component Value Reference Range Flag Notes DEXAMETHASONE (33327) Reviewed date:01/11/2025 09:29:58 PM Interpretation: Performing Lab:Cm HO/Jossy [facility],[address] [facility] CenterCA[address] Cordelia Jara MD,PhD,CARMEN Notes/Report: DEXAMETHASONE 311 used for clinical purposes. This test was developed and its analytical performance characteristics have been determined by [email or web address]. 1 mg dexamethasone overnight: 180-550 ng/dL (8:00-10:00 AM) Baseline: Less than 20 ng/dL Reference Ranges for Dexamethasone: has been validated pursuant to the CLIA regulations and is It has not been cleared or approved by the FDA. This assay CORTISOL, TOTAL (367) Reviewed date:12/30/2024 08:48:25 PM Interpretation: Performing Lab:Cm CLEMONS-Krdcam20889 Alejandro [facility], OqtszjIR[address] Gunnar Blake MD Notes/Report: CORTISOL, TOTAL 0.7 L * Please interpret above results accordingly * Reference Range: For 8 a.m.(7-9 a.m.) Specimen: 4.0-22.0 Reference Range: For 4 p.m.(3-5 p.m.) Specimen: 3.0-17.0 .COMPREHENSIVE METABOLIC DONAHUE EL (79659) CMP Reviewed date:01/02/2025 03:30:45 PM Interpretation: Performing Lab:Cm CLEMONS-Jzumup42897 Alejandro Baires, YztyjdEE[address] Gunnar Blake MD Notes/Report: COLLECTION KIT GIVEN [...] U/L N ALT 21 6-29 U/L N MAGNESIUM (622) Reviewed date:01/02/2025 03:30:45 PM Interpretation: Performing Lab:KACI [employer] Emerson-Xeqwob06859 Alejandro Baires, HlegwsTW[address] Gunnar Blake MD Notes/Report: COLLECTION KIT GIVEN TO PATIENT. PATIENT ADVISED TO RETURN. URINE VOLUME: 1999 MAGNESIUM 2.4 1.5-2.5 mg/dL N IRON AND TOTAL IRON BINDING CAPACITY (7573) Reviewed date:01/02/2025 03:30:45 PM Interpretation: Performing Lab:KACI [facility].comQhyokn00629 Justin JohnsonKkaqhuOQ[address] Gunnar Blake MD Notes/Report: COLLECTION KIT GIVEN TO PATIENT. PATIENT ADVISED TO RETURN. URINE VOLUME: 2000 IRON, TOTAL 125 40-190 mcg/dL N IRON BINDING CAPACITY 365 250-450 mc g/dL (calc) N % SATURATION 34 16-45 % (calc) N .CBC (INCLUDES DIFF/PLT) (63 99) Reviewed date:01/02/2025 03:30:45 PM Interpretation: Performing Lab:KACI [employer] [facility]-Fibtce37809 Alejandro Mark, HjwgtcAA[address] Gunnar Blake MD Notes/Report: COLLECTION KIT GIVEN TO PATIENT. PATIENT ADVISED TO RETURN. URINE VOLUME: 2000 WHITE BLOOD CELL COUNT 7.0 3.8-10.8 Thousand/uL N RED BLOOD CELL COUNT 4.14 3.80-5.10 Million/uL N HEMOGLOBIN 12.3 11.7-15.5 g/dL N HEMATOCRIT 39.4 35.0-45.0 % N MCV 95.2 80.0-100.0 fL N MCH 29.7 27.0-33.0 pg N MCHC 31.2 32.0-36.0 g/dL L value (in the range of 30 to 32 g/dL) is most likely red cell parameters and the patient's clinical not clinically significant; however, it should be condition. interpreted with caution in correlation with other For adults, a slight decrease in the calculated MCHC RDW 12.1 11.0-15.0 % N PLATELET COUNT 360 140-400 Thousand/uL N MPV 10.0 7.5-12.5 fL N ABSOLUTE NEUTROPHILS 2576 3246-0106 cells/uL N ABSOLUTE LYMPHOCYTES 3696 850-3900 cells/uL N ABSOLUTE MONOCYTES 532 200-950 cells/uL N ABSOLUTE EOSINOPHILS 168 15-500 cells/uL N ABSOLUTE BASOPHILS 28 0-200 cells/uL N NEUTROPHILS 36.8 N LYMPHOCYTES 52.8 N MONOCYTES 7.6 N EOSINOPHILS 2.4 N BASOPHILS 0.4 N THYROID PEROXIDASE ANTIBODIE S (5081) Reviewed date:01/11/2025 09:29:58 PM Interpretation: Performing Lab:MONIE [employer] Emerson-Lorenzo Oetk1711 Kenneth Mark, Lorenzo BvibFC[address] Nash Rogel Notes/Report: COLLECTION KIT GIVEN TO PATIENT. PATIENT ADVISED TO RETURN. URINE VOLUME: 2000 THYROID PEROXIDASE ANTIBODIES 1 <9 IU/mL ACTH, PLASMA (211) Reviewed date:01/11/2025 09:29:58 PM Interpretation: Performing Lab:Cm HUBBARD/Jossy [place] [id number] Michelle Willoughby, BprgcmpghHF[address] Gokul Reyes M.D.,PhD Notes/Report: COLLECTION KIT GIVEN TO PATIENT. PATIENT ADVISED TO RETURN. URINE VOLUME: 2000 ACTH, PLASMA 45 6-50 pg/mL between 7am-10am. Reference range applies only to specimens collected CORTISOL, FREE, 24 HOUR URIN E (34045) Reviewed date:01/12/2025 09:22:41 PM Interpretation: Performing Lab:Cm HO Diagnostics/Jossy [facility],[address] Linda [facility] HospitalCA[address] Cordelia Jara MD,PhD,CARMEN Notes/Report: SPLIT 12/30/2024 FROM [id number] COLLECTION KIT GIVEN TO PATIENT. PATIENT ADVISED TO RETURN. URINE VOLUME: 3000/24 TOTAL VOLUME 3000 CORTISOL, FREE, URINE 14.5 4.0-50.0 mcg/24 h CORTISOL, FREE, URINE 13.9 ADULTS: 3.1-42.3 Reference Range: CREATININE, URINE 1.04 0.50-2.15 g/24 h used for clinical purposes. has been validated pursuant to the CLIA regulations and is characteristics have been determined by [email or web address]. This test was developed and its analytical performance It has not been cleared or approved by the FDA. This assay .LIPID PANEL, STANDARD (7600 ) Reviewed date:01/02/2025 03:30:45 PM Interpretation: Performing Lab:K[facility]-Nhowtq85530 Alejandro [facility], XfrknxZW[address] Gunnar Blake MD Notes/Report: COLLECTION KIT GIVEN TO PATIENT. PATIENT ADVISED TO RETURN. URINE VOLUME: 2000 CHOLESTEROL, TOTAL 324 <200 mg/dL H HDL CHOLESTEROL 51 > OR = 50 mg/dL N TRIGLYCERIDES 222 <150 mg/dL H If a non-fasting specimen was collected, consider Cheri et al. J. of Clin. Lipidol. 2015;9:129-169. if clinically indicated. repeat triglyceride testing on a fasting specimen LDL-CHOLESTEROL 232 H with an FH diagnosis. LDL Cholesterol (LDL-C) levels > or = 300 mg/dL may indicate homozygous interventions to reduce the cumulative LDL-C estimation of LDL-C. LDL-C levels > or = 190 mg/dL may indicate familial measurement of blood lipid levels should be management. Heart Journal, 35(32), [employer] Client Services at 1.866.GENE.INFO. Management of Dyslipidemia: Part 1 Journal of (http://education.Intr[employer]iq [employer].com/faq/HRU471) hypercholesterolaemia: new insights and guidance familial hypercholesterolemia (HoFH). Untreated, For questions about testing for familial premature CV events and mortality. Patients should calculation, which is a validated novel method providing Cheri T, et al. J National Lipid Association <70 mg/dL for patients with CHD or diabetic patients LDL-C is now calculated using the [facility] Clinical Lipidology 2015;9(2), 129-169. with > or = 2 CHD risk factors. burden from . 4129-2794. Recommendations for Patient-Centered be identified early and provided appropriate Josh et al. MANJU. 2013;310(19): 5672-9969 considered for all first degree relatives of patients hypercholesterolemia, please call [facility] for clinicians to improve detection and clinical Reference range: <100 these extremely high LDL-C levels can result in better accuracy than the Friedewald equation in the hypercholesterolemia (FH). Clinical assessment and Toby Bass et al. (2014). Homozygous familial Desirable range <100 mg/dL for primary prevention; CHOL/HDLC RATIO 6.4 <5.0 (calc) H NON HDL CHOLESTEROL 273 <130 mg/dL (calc) H assessment and measurement of blood lipid levels factor, treating to a non-HDL-C goal of <100 mg/dL should be considered for all first-degree relatives Non-HDL level > or = 220 is very high and may indicate of patients with an FH diagnosis. option. (LDL-C of <70 mg/dL) is considered a therapeutic For patients with diabetes plus 1 major ASCVD risk genetic familial hypercholesterolemia (FH). Clinical INSULIN (561) Reviewed date:01/02/2025 03:30:45 PM Interpretation: Performing Lab:KACI [employer]-Ummwmd82046 Alejandro Mark, PxzbxbLF[address] Gunnar Blake MD Notes/Report: COLLECTION KIT GIVEN TO PATIENT. PATIENT ADVISED TO RETURN. URINE VOLUME: 2000 INSULIN 11.7 N Risk: Adult cardiovascular event risk category in 2021. studies performed at [employer] High >18.4 Optimal < or = 18.4 cut points (optimal, moderate, high) Reference Range < or = 18.4 Moderate NA are based on Insulin Reference Interval DHEA SULFATE (402) Reviewed date:01/02/2025 03:30:45 PM Interpretation: Performing Lab:Cm CLEMONS-Phnozn27846 Alejandro Mark, OsjvglXC[address] Gunnar Blake MD Notes/Report: COLLECTION KIT GIVEN TO PATIENT. PATIENT ADVISED TO RETURN. URINE VOLUME: 2000 DHEA SULFATE 40 15-205 mcg/dL N FSH (470) Reviewed date:01/02/2025 03:30:45 PM Interpretation: Performing Lab:Cm CLEMONS-Kjqykn89836 Alejandro Mark, LplritHH[address] Gunnar Blake MD Notes/Report: COLLECTION KIT GIVEN TO PATIENT. PATIENT ADVISED TO RETURN. URINE VOLUME: 2000 FSH 10.5 N Luteal Phase 1.5- 9.1 Follicular Phase 2.5-10.2 Reference Range Postmenopausal 23.0-116.3 Mid-cycle Peak 3.1-17.7 LH (615) Reviewed date:01/02/2025 03:30:45 PM Interpretation: Performing Lab:Cm CLEMONS-Wwbntf06800 Alejandro Mark, SxdxnxWG[address] Gunnar Blake MD Notes/Report: COLLECTION KIT GIVEN TO PATIENT. PATIENT ADVISED TO RETURN. URINE VOLUME: 2000 LH 11.0 N Luteal Phase 0.5-16.9 Follicular Phase 1.9-12.5 Reference Range Postmenopausal 10.0-54.7 Mid-Cycle Peak 8.7-76.3 .HEMOGLOBIN A1c (496) Reviewed date:12/30/2024 08:48:25 PM Interpretation: Performing Lab:Cm [facility]rick [facility] CenterOoexu31388 Administration Tania Willoughby OobohaqGQ[address] Gunnar Blake Notes/Report: COLLECTION KIT GIVEN TO PATIENT. PATIENT ADVISED TO RETURN. URINE VOLUME: 2000 HEMOGLOBIN A1c 5.0 <5.7 % of total Hgb N control in non- diabetic patients. Different hemoglobin A1c for diagnosis of diabetes in children. diabetes: Currently, no consensus exists regarding use of 5.7-6.4% Consistent with increased risk for diabetes <5.7% Consistent with the absence of diabetes Standards of Medical Care in Diabetes(ADA). According to [place] Diabetes Association (ADA) metrics may apply to specific patient populations. > or =6.5% Consistent with diabetes This assay result is consistent with a decreased risk For the purpose of screening for the presence of (prediabetes) guidelines, hemoglobin A1c <7.0% represents optimal of diabetes. ESTRADIOL (4021) Reviewed date:01/02/2025 03:30:45 PM Interpretation: Performing Lab:Cm CLEMONS-Xhwhfn65425 Beatrice JohnsonaKS[address] Gunnar Blake MD Notes/Report: COLLECTION KIT GIVEN TO PATIENT. PATIENT ADVISED TO RETURN. URINE VOLUME: 2000 ESTRADIOL 31 N Ultrasensitive LC/MS/MS demonstrates negligible cross inappropriate clinical assessment of estrogen status. elevated estradiol test results leading to an Reference Range pre-pubertal children and hypogonadal/post-menopausal Luteal Phase: 56-214 Postmenopausal: < or = 31 measurement. The cross reactivity could lead to falsely interference in immunoassay methods for estradiol (order code 50096). population. No pre-pubertal reference range established using this assay. For any patients for Please note: patients being treated with the drug [employer] order code 78934-Yucfvfyha, females), the [employer] [facility] fulvestrant (Faslodex(R)) have demonstrated significant Estradiol, Ultrasensitive, LCMSMS assay is recommended Reference range established on post-pubertal patient whom low Estradiol levels are anticipated (e.g. males, reactivity with fulvestrant. Follicular Phase: 19-144 Mid-Cycle: 64-357 PROGESTERONE (745) Reviewed date:01/02/2025 03:30:45 PM Interpretation: Performing Lab:Cm CLEMONS-Qdfmuo49359 Beatrice JohnsonaKS[address] Gunnar Blake MD Notes/Report: COLLECTION KIT GIVEN TO PATIENT. PATIENT ADVISED TO RETURN. URINE VOLUME: 2000 PROGESTERONE 4.6 N 2nd Trimester 24.0-76.0 Luteal Phase 2.6-21.5 Reference Ranges Female Follicular Phase < 1.0 Post menopausal < 0.5 3rd Trimester 52.0-302.0 1st Trimester 4.1-34.0 VITAMIN B12/FOLATE, SERUM PA LAURA (9320) Reviewed date:01/02/2025 03:30:45 PM Interpretation: Performing Lab:Cm CLEMONSa10101 Beatrice JohnsonaKS[address] Gunnar Blake MD Notes/Report: COLLECTION KIT GIVEN TO PATIENT. PATIENT ADVISED TO RETURN. URINE VOLUME: 1999 VITAMIN B12 0450 198-3399 pg/mL H FOLATE, SERUM 22.7 N Normal: >5.4 Reference Range Low: <3.4 Borderline: 3.4-5.4 T4, FREE (866) Reviewed date:01/02/2025 03:30:45 PM Interpretation: Performing Lab:Cm CLEMONS LenexaKS[address] Gunnar Blake MD Notes/Report: COLLECTION KIT GIVEN TO PATIENT. PATIENT ADVISED TO RETURN. URINE VOLUME: 1999 T4, FREE 1.3 0.8-1.8 ng/dL N TSH (899) Reviewed date:01/02/2025 03:30:45 PM Interpretation: Performing Lab:Cm CLEMONS LenexaKS[address] Gunnar Blake MD Notes/Report: COLLECTION KIT GIVEN TO PATIENT. PATIENT ADVISED TO RETURN. URINE VOLUME: 1999 TSH 1.69 N Reference Range Ranges Third trimester 0.43-2.91 > or = 20 Years 0.40-4.50 First trimester 0.26-2.66 Second trimester 0.55-2.73 T3, FREE (32480) Reviewed date:01/02/2025 03:30:45 PM Interpretation: Performing Lab:Cm CLEMONS LenexaKS[address] Gunnar Blake MD Notes/Report: COLLECTION KIT GIVEN TO PATIENT. PATIENT ADVISED TO RETURN. URINE VOLUME: 1999 T3, FREE 3.1 2.3-4.2 pg/mL N .VITAMIN D,25-OH,TOTAL,IA (3 8369) Reviewed date:01/02/2025 03:30:45 PM Interpretation: Performing Lab:Cm CLEMONS LenexaKS[address] Gunnar Blake MD Notes/Report: COLLECTION KIT GIVEN TO PATIENT. PATIENT ADVISED TO RETURN. URINE VOLUME: 1999 VITAMIN D,25-OH,TOTAL,IA 38 30-100 ng/mL N Optimal: > or = 30 ng/mL of D2 and D3 fractions is required, the QuestAssureD(TM) Deficiency: <20 ng/mL http://education.[employer]/faq/WNE297 (This link is being provided for informational/ For additional information, please refer to Insufficiency: 20 - 29 ng/mL Note 1 Vitamin D Status 25-OH Vitamin D: For 25-OH Vitamin D testing on patients on See Note 1 D2-supplementation and patients for whom quantitation code 84345 (patients >2yrs). educational purposes only.) 25-OH VIT D, (D2,D3), LC/MS/MS is recommended: order TESTOSTERONE, FREE (DIALYSIS ) AND TOTAL,MS (76749) Reviewed date:01/11/2025 09:29:58 PM Interpretation: Performing Lab:Gris [facility]-SlsGflkel[address] [address], [address], NuqfcanyshGX[address] Arcenio Turner MD,PhD Notes/Report: COLLECTION KIT GIVEN TO PATIENT. PATIENT ADVISED TO RETURN. URINE VOLUME: 2000 TESTOSTERONE, TOTAL, MS 8 2-45 ng/dL This test was developed and its analytical performance For additional information, please refer to https://education.i-[employer]/faq/USH886 characteristics have been determined by [employer]. It has not been cleared or approved by the FDA. This assay has (This link is being provided for informational/educational purposes only.) been validated pursuant to the CLIA regulations and is (Note) used for clinical purposes. TESTOSTERONE, FREE 1.9 0.1-6.4 pg/mL used for clinical purposes. been validated pursuant to the CLIA regulations and is [address] [address],[address] This test was developed and its analytical performance [phone] Arcenio Turner MD, PhD MDF (Note) [facility] [address] med fusion not been cleared or approved by the FDA. This assay has characteristics have been determined by [facility]. It has Reason For Referral No Information Medications Medication [...] Status W/U Status Risk Notes Problem Overweight (912150909) Overweight (E66.3) Active confirmed Problem Insomnia (634711602) Insomnia due to medical condition (G47.01) Active confirmed Problem Obesity (034042569) Obesity (BMI 30-39.9) (E66.9) Active confirmed Problem Kidney stone (03839921) Kidney stones (N20.0) Active confirmed Problem Generalized anxiety disorder (61827040) Anxiety, generalized (F41.1) Active confirmed Problem Mixed hyperlipidemia (280738366) Mixed dyslipidemia (E78.2) Active confirmed Problem Postsurgical menopause (920679700) Postsurgical menopause (E89.40) Active confirmed Vital Signs Heart Rate 74 /min 03/14/2025 Height-cm 157.48 cm 03/14/2025 Oximetry 99 % 03/14/2025 Blood pressure diastolic 80 mm Hg 03/14/2025 Weight-kg 82.1 kg 03/14/2025 Height 62 in 03/14/2025 Blood pressure systolic 123 mm Hg 03/14/2025 Weight 181 lbs 03/14/2025 BMI 33.1 kg/m2 03/14/2025 Encounters Encounter Location Date Provider Diagnosis [facility] Dr. Ventura [address] [place], [place] [id number] 12/01/2024 Malgorzata Ventura Postsurgical menopau se E89.40 ; Anxiety, generalized F41.1 ; Abnormal weight gain R63.5 ; Insomnia due to medical condition G47.01 and Kidney stones N20.[address] Ventura [address] [place] [address] 01/11/2025 Malgorzata Ventura Postsurgical menopau se E89.40 ; Mixed dyslipidemia E78.2 ; Dietary counseling and surveillance Z71.3 and Obesity (BMI 30-39.9) E66.[address] Ventura [address] [place] [address] 03/14/2025 Malgorzata Ventura Obesity (BMI 30-39.9 ) E66.9 ; Mixed dyslipidemia E78.2 and Dietary counseling and surveillance Z71.[address] [address] 01/12/[address] Ventura [address] [place] [address] 12/02/2024 Malgorzata Ventura Assessments Encounter Date Diagnosis [...] prior to lab work- Follow up with clinical services specialist in December to rule out underlying cardiac [...] procedures, referring and communicating with other health rn managed care, documenting clinical information in the electronic or [...] procedures, referring and communicating with other health rn managed care, documenting clinical information in the electronic or [...] review previous TIA workup and imaging from [facility]- Consider referral to neurology for further evaluation of TIA history- Continue to monitor cardiovascular risk factors Spent 15 minutes preparing to see the patient (ex review of tests/chart), obtaining and / or reviewing separately obtained history, performing a medically appropriate examination and/or evaluation, counseling and educating the patient/family/caregive r, ordering medications, tests, or procedures, referring and communicating with other health rn managed care, documenting clinical information in the electronic or other health record, independently interpreting results and communicating results to the patient/family/caregive r and care coordinating patient plan. Patient alert and oriented x 4 and aware of discussion noted above and in agreeance to plan in management of weight and mixed dyslipidemia. Plan Of Treatment Pending Test Test Name Order Date *CT ABDOMEN W/O CONTRAST 63110 5 Next Appt Details Provider Name:Malgorzata Ventura, 10:00:00 AM, [address] [place] [address], [phone], Insurance Providers Payer Name Payer Address Payer Phone Subscriber Number Group Number Insured Name Patient Relationship to Insured Coverage Start Date Coverage End Date [facility] Claims Dept [address] [place] [address] [id number] Angy Orourke Self - patient is the insured Medical (General) History Medical History History ICD Code hypertension hyperlipidemia
--- OUTSIDE RECORDS SUMMARY | 2025-04-08 14:28 | XMS_ITS | Clinical Summary ---
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 Respiratory Rate 18 01/14/2025 8:49 AM CDT [...] this topic Medical Devices Implanted Type Area Machine Rough Rounder Device Identifier Shelf Expiration Date Model / Serial / Lot BellaDati Staple Bone Lapiplasty Speedplate Strl Rapid Compress Sk51 - [id number] Implanted:Qty: 1 on 04/02/2024 by Carla Nayak DPM at [facility] Right: First Toe [employer] 10/28/2028 SK51 / / [id number] [employer] Staple Bone Lapiplasty Speedplate Strl Rapid Compress Sk53 - Sn/A - [id number] Implanted:Qty: 1 on 04/02/2024 by Carla Nayak DPM at [facility] Right: First Toe [employer] 08/18/2028 SK53 / N/A / [id number] [employer] Max Vpc 2.5mm 16mm Cannulated Compression Headless Full Thread [id number] - [id number] Implanted:Qty: 1 on 04/02/2024 by Carla Nayak DPM at [facility] Right: First Toe [employer] [id number] / / Procedures Procedure Name Priority Date/Time [...] from Last [address] [place] [address] [facility] [place] [address] [facility] CLAIMS Care Teams Electric Meter Installer Helper Relationship Specialty Start Date End Date Mary Telles NP PCP - General Family Medicine 04/29/23 Carla Nayak DPM [address] [place] [address] Consulting Physician Foot and Ankle Surg 04/02/24
== END 2025-04-08 14:25 | disposition home or self-care (01) ==
PROVIDERS: PCP Nurse Practitioner Family; Visit Provider Podiatrist Foot & Ankle Surgery
DX: T14.8XXD Other injury of unspecified body region, subsequent encounter (principal); M19.071 Primary osteoarthritis, right ankle and foot
CPT/HCPCS: 73700

== ENCOUNTER 2025-05-30 09:52 | Outpatient (CLI) | payer OTHER, SELFPAY ==
--- OUTSIDE RECORDS SUMMARY | 2025-05-30 11:19 | XMS_ITS | Clinical Summary ---
Author Organization [facility] [address] Address [address] [place] [address] Care Team Providers Care Manager It Training Name Role Phone Mary Telles NP Primary Care Provider [phone] Carla Nayak DPM Unavailable [phone] Allergies Active Allergy Reactions Criticality Noted Date [...] (fourteen) days 2 mL 11 01/14/2025 Active lisinopriL (PRINIVIL,ZESTR IL) 20 mg tablet Take 1 tablet (20 mg total) by mouth nightly at bedtime. 02/28/2025 Active semaglutide (Wegovy) 0.25 mg/0.5 mL auto-injectorIn dications:cardi ovascular event risk reduction in obesity,also has RANDY Inject 0.25 mg under the skin every 7 days 2 mL 05/02/2025 Active Active Problems Problem Noted Date Diagnosed Date Obstructive sleep apnea syndrome 05/02/2025 Assessment & Plan (05/02/2025 10:37 AM CDT): Compliance with CPAP encouraged Will send rx for Wegovy 0.25 mg weekly in the setting of RANDY, obesity and HLD. Obesity (BMI 30-39.9) 05/02/2025 Assessment & Plan (05/02/2025 10:37 AM CDT): Continued exercise encouraged Patient has seen sales and catering coordinator and is counting macros Remains with elevated BMI Will begin Wegovy for weight management and CV risk reduction. Palpitations 12/03/2024 Assessment & Plan (05/02/2025 10:37 AM CDT): Continues to have episodes of palpitations at rest occurring 1-2 times a week. Completed tele monitor with no significant arrhythmia. Last labs do not demonstrate electrolyte disturbance or anemia. Will continue with propranolol on an as needed basis. Encouraged continued exercise and caffeine reduction. Stress/anxiety reduction management encouraged as well. Other chest pain 12/03/2024 Assessment & Plan (05/02/2025 10:37 AM CDT): Continues to express episodes of atypical pinching like chest pain at rest and associated with palpitations. May be secondary to anxiety, but patient did not tolerate SSRI in the past. There is concern for ischemia given her HLD, family history and obesity. Will plan for treadmill stress test. Echo earlier this year demonstrated normal EF. Orders: Stress Treadmill Test; Future Hypercholesteremia 12/03/2024 Assessment & Plan (05/02/2025 10:37 AM CDT): Her last LDL was 259. Has been on repatha since last labs. Will update lipid panel and LP(a). Orders: Lipid panel; Future Lipoprotein a (LPa); Future Stress Treadmill Test; Future Family history of early CAD 12/03/2024 Assessment & Plan (05/02/2025 10:37 AM CDT): Mother had FL at 52. Continue risk reduction with weight loss,exercise and healthy diet. Orders: Stress Treadmill Test; Future Bunion of great toe of right foot 03/23/2024 Acquired hallux valgus of right foot 03/23/2024 Encounters Date Type Department Care Team Description 05/26/2025 2:00 PM BUILDING WRECKER Ancillary Procedure [facility] [address] [address] [place] [phone] Hypercholesteremia; Family history of early CAD; Other chest pain 05/26/2025 Results Follow-Up Cardiology Radha Alfredo NP Stress Treadmill Test 05/26/2025 Telephone [facility] [address] [facility] [address] [place] [phone] Radha Alfredo NP pt waiting for labs 05/02/2025 9:30 AM CDT Office Visit [facility] [address] [place] [phone] Radha Alfredo NP Other chest pain (Primary Dx); Palpitations; Hypercholesteremia; Family history of early CAD; Obstructive sleep apnea syndrome; Obesity (BMI 30-39.9) from Last 3 Months Surgical History Surgery [...] Sex Female 6:51 AM CDT Gender Identity Female 05/18/2025 9:44 AM BUILDING WRECKER Sexual Orientation Not on file Last Filed Vital Signs Vital Sign Reading Time Taken Comments Blood Pressure 116/74 05/02/2025 9:39 AM CDT Pulse 91 05/02/2025 9:39 AM CDT Temperature 38.8 C (101.9 F) 08/01/2024 7:43 PM BUILDING WRECKER Respiratory Rate 16 05/02/2025 9:39 AM CDT Oxygen Saturation 96% 05/02/2025 9:39 AM CDT Inhaled Oxygen Concentration - - Weight 83 kg (183 lb) 05/02/2025 9:39 AM CDT Height 157.5 cm (5' 2) 05/02/2025 9:39 AM CDT Body Mass Index 33.47 05/02/2025 9:39 AM CDT Plan of Treatment Health Maintenance Due Date Last Done Comments Breast Cancer Screening-Mammogram 1985 Depression Screening 1985 Hepatitis C Screening 1985 Varicella Vaccines (1 of 2 - 13+ 2-dose series) 10/19/1996 Hepatitis B Screening 10/19/2001 Regular Well Visit/Exam 18-64 10/19/2001 Covid-19 Vaccine ( season) 2025 04/09/2021, 08/03/2020, 07/13/2020 Influenza Vaccine (#1) 2025 , 04/07/2020, 05/14/2019, Additional history exists DTaP/Tdap/Td Vaccine (4 - Td or Tdap) 09/03/2032 09/03/2022, 09/23/2016, 12/15/2006, Additional history exists HPV Vaccines Completed 07/17/2011, 08/2008, 12/15/2006 Pneumococcal vaccine <65 Aged Out No longer eligible based on patient's age to complete this topic Medical Devices Implanted Type Area Stockkeeper Device Identifier Shelf Expiration Date Model / Serial / Lot Plink [employer] Staple Bone Lapiplasty Speedplate Strl Rapid Compress Sk51 - [id number] Implanted:Qty: 1 on 04/02/2024 by Carla Nayak DPM at [facility] Right: First Toe [employer] 10/28/2028 SK51 / / [id number] 53|10 [employer] Staple Bone Lapiplasty Speedplate Strl Rapid Compress Sk53 - Sn/A - [id number] Implanted:Qty: 1 on 04/02/2024 by Carla Nayak DPM at [facility] Right: First Toe [employer] 08/18/2028 SK53 / N/A / [id number] [employer] Max Vpc 2.5mm 16mm Cannulated Compression Headless Full Thread [id number] - [id number] Implanted:Qty: 1 on 04/02/2024 by Carla Nayak DPM at [facility] Right: First Toe [employer] [id number] / / Procedures Procedure Name Priority Date/Time Associated Diagnosis Comments STRESS TEST ONLY TREADMILL Routine 05/26/2025 2:48 PM BUILDING WRECKER Hypercholesteremia Family history of early CAD Other chest pain from Last 3 Months Results * Stress Treadmill Test (05/26/2025 2:48 PM BUILDING WRECKER) Anatomical Region Laterality Modality Nuclear Medicine Narrative 05/26/2025 3:53 PM BUILDING WRECKER TREADMILL STRESS TEST Patient Name: Angy Orourke Date of : 1985 Primary Physician: Elfego Requesting Physician: Radha Alfredo/Dr. Rosario Type of stress test: Treadmill stress test Indication: Chest pain Quality of the study: Good Interpretation: Baseline 12 lead EKG showed normal sinus rhythm. Normal EKG. After obtaining baseline 12 lead EKG and blood pressure, patient exercised on treadmill using standard Jose protocol for 7 minutes 29 seconds, achieving a cardiac workload of 10.1 METS. Patient stopped exercise due to leg fatigue. Baseline blood pressure 99/62 mmHg, baseline heart rate 90 beats per minute, maximum blood pressure 134/82 mmHg, maximal heart rate 175 beats per minute which is 98 percent of maximum age predicted heart rate. Stress EKG: Normal Arrhythmias: None Blood pressure response to exercise: Normal Heart rate recovery: Normal Conclusions: Treadmill stress test is negative for ischemia by EKG criteria at 98% of maximum age predicted heart rate. Below-average exercise capacity for patient's age. No exercise-induced chest pain Voice recognition software was used to complete this document. Krishna Ravi MD, FACC Radha Alfredo NEON LIGHT INSTALLER CV STRESS PROCEDUR ES Final Result from Last 3 Months Insurance [facility] [place] [id number] [facility] CLAIMS Care Teams Manager It Training Relationship Specialty Start Date End Date Mary Telles, NEON LIGHT INSTALLER PCP - General Family Medicine 04/29/23 Carla Nayak DPM [facility] [place] [address] Consulting Physician Foot and Ankle Surg 04/02/24"
--- OUTSIDE RECORDS SUMMARY | 2025-05-30 11:19 | XMS_ITS | Encounter Summary ---
Author Organization [facility] Address [address] [place] [address] Care Team Providers Care Bowling Ball Patcher Name Role Phone Mary Telles NP Primary Care Provider [phone] Carla Nayak DPM Unavailable [phone] Encounter Details Date Type Department Care Team (Late st Contact Info) Description 05/26/2025 Results Follow-Up Cardiology Radha Alfredo NP [address] [place] [address] Stress Treadmill Test Social History Tobacco Use Types Packs/Day Years [...] CDT Gender Identity Female 05/18/2025 9:44 AM DIRECTOR CORPORATE COMMUNICATIONS Sexual Orientation Not on file documented as of this encounter Miscellaneous Notes * Telephone Encounter - Radha Alfredo NP - 05/26/2025 3:59 PM DIRECTOR CORPORATE COMMUNICATIONS Please let her know that her stress test was negative for ischemia. CTOR CORPORATE COMMUNICATIONS documented in this encounter Plan of Treatment Not on file documented as of this encounter Visit Diagnoses Not on filedocumented in this encounter Care Teams Bowling Ball Patcher Relationship Specialty Start Date End Date Mary Telles NP PCP - General Family Medicine 04/29/23 Carla Nayak DPM [address] [place] [id number] Consulting Physician Foot and Ankle Surg 04/02/24 documented as of this encounter
[2025-05-30 11:28] LABS: Cholesterol 288 mg/dL (0-200); HDL Direct 49 mg/dL; Triglycerides 256 mg/dL (<150)
== END 2025-05-30 09:53 | disposition home or self-care (01) ==
PROVIDERS: PCP Nurse Practitioner Family
DX: E78.00 Pure hypercholesterolemia, unspecified (principal)
CPT/HCPCS: 36415; 80061; 83695